=== PATIENT | male | born 1970 | race Caucasian/White ===

== ENCOUNTER 2019-10-21 09:51 | Observation (INO) | payer BC ==
[2019-10-21 10:36] LABS: CHLORIDE,CL 105 mEq/L (98-106); SODIUM,NA 141 mEq/L (136-145)
[2019-10-21] MEDS ORDERED: Sodium Chloride 0.9% 1,000 ML IV ONE (10:44)
--- NOTE | 2019-10-21 10:55 | EDM.PDOC ---
ED HPI GENERAL MEDICAL PROBLEM - General Chief Complaint: Abdominal Pain Stated Complaint: BELLY PAIN Time Seen by Provider: 10/21/19 10:06 Source of Information: Reports: Patient History Limitations: Reports: No Limitations - History of Present Illness INITIAL COMMENTS - FREE TEXT/NARRATIVE: This patient is a 49 year old male that presents to the ER. Patient reports that at Tuesday morning at about 3am he started having right sided abdominal pain that woke him from his sleep. Patient reports that the pain comes and goes since then. Patient reports some nausea. He reports that Tuesday his pain was bad that he got diaphoretic with it. The patient reports that he does drink beers daily. He reports having a history of pancreatitis. Onset Date: 10/20/19 Onset Time: 03:00 Location: Reports: Abdomen Severity: Moderate Improves with: Reports: None Worsens with: Reports: None Associated Symptoms: Reports: Diaphoresis, Nausea/Vomiting. Denies: Confusion, Chest Pain, Cough, cough w sputum, Fever/Chills, Headaches, Loss of Appetite, Malaise, Rash, Seizure, Shortness of Breath, Syncope, Weakness Abdomen Pain Score (Numeric/FACES): 3 - Related Data Allergies Allergy/AdvReac Type Severity Reaction Status Date / Time No Known Allergies Allergy Verified 10/21/19 10:06 Home Meds: Home Meds . [Unable to Verify Home Med List] 10/21/19 [History] Past Medical History Cardiovascular History: Reports: Hypertension Social & Family History - Tobacco Use Smoking Status *Q: Current Every Day Smoker Years of Tobacco use: 15 Packs/Tins Daily: 1 - Recreational Drug Use Recreational Drug Use: No ED ROS GENERAL - Review of Systems Review Of Systems: See Below Constitutional: Reports: Diaphoresis HEENT: Reports: No Symptoms Respiratory: Reports: No Symptoms Cardiovascular: Reports: No Symptoms Endocrine: Reports: No Symptoms GI/Abdominal: Reports: Abdominal Pain, Nausea. Denies: Vomiting : Reports: No Symptoms Musculoskeletal: Reports: No Symptoms Skin: Reports: No Symptoms Neurological: Reports: No Symptoms Psychiatric: Reports: No Symptoms Hematologic/Lymphatic: Reports: No Symptoms Immunologic: Reports: No Symptoms ED EXAM, GI/ABD - Physical Exam Exam: See Below Exam Limited By: No Limitations General Appearance: Alert, WD/WN, No Apparent Distress Eyes: Bilateral: Normal Appearance Ears: Normal External Exam, Normal Canal, Hearing Grossly Normal, Normal TMs Throat/Mouth: Normal Inspection, Normal Lips, Normal Teeth, Normal Gums, Normal Oropharynx, Normal Voice, No Airway Compromise Head: Atraumatic, Normocephalic Neck: Normal Inspection, Supple, Non-Tender, Full Range of Motion Respiratory/Chest: No Respiratory Distress, Rhonchi (mildly throughout) Cardiovascular: Normal Peripheral Pulses, Regular Rate, Rhythm, No Edema, No Gallop, No JVD, No Murmur, No Rub GI/Abdominal Exam: Normal Bowel Sounds, Soft, No Organomegaly, No Distention, No Abnormal Bruit, No Mass, Pelvis Stable, Tender (RLQ, RUQ) Back Exam: Normal Inspection, Full Range of Motion. No: CVA Tenderness (L), CVA Tenderness (R) Extremities: Normal Inspection, Normal Range of Motion, Non-Tender, No Pedal Edema, Normal Capillary Refill Neurological: Alert, Oriented Psychiatric: Normal Affect, Normal Mood Skin Exam: Warm, Dry, Intact, Normal Color, No Rash Lymphatic: No Adenopathy Course - Vital Signs Last Recorded V/S: Last Vital Signs Temp 98.7 F 10/21/19 10:02 Pulse 88 10/21/19 10:02 Resp 20 10/21/19 10:02 BP 160/98 H 10/21/19 10:02 Pulse Ox 100 10/21/19 10:02 - Orders/Labs/Meds Orders: Active Orders 24 hr Category Date Time Status Abdomen Pelvis wo Cont [CT] Stat Exams 10/21/19 10:43 Taken Labs: Laboratory Tests 10/21/19 10/21/19 10/21/19 Range/Units 10:12 10:12 10:12 WBC 9.2 (5.0-10.0) 10^3/uL RBC 4.47 L (4.50-6.00) 10^6/uL Hgb 13.9 L (14.0-18.0) g/dL Hct 41.2 (40.0-54.0) % MCV 92.2 (82.0-94.0) fL MCH 31.1 (27.0-32.0) pg MCHC 33.7 (33.0-38.0) g/dL RDW Coeff of Edilia 13.0 (11.0-15.0) % Plt Count 200 (150-400) 10^3/uL Neut % (Auto) 70.0 (35-85) % Lymph % (Auto) 21.6 (10-55) % [place] % (Auto) 6.8 (0-16) % Eos % (Auto) 1.4 (0-5) % Baso % (Auto) 0.2 (0-3) % Neut # (Auto) 6.46 (1.80-7.00) 10^3/uL Lymph # (Auto) 2.00 (1.00-4.80) 10^3/uL [place] # (Auto) 0.63 (0.00-0.80) 10^3/uL Eos # (Auto) 0.13 (0.00-0.45) 10^3/uL Baso # (Auto) 0.02 10^3/uL Sodium 141 (136-145) mEq/L Potassium 3.5 D (3.5-5.0) mEq/L Chloride 105 (98-106) mEq/L Carbon Dioxide 22 (21-32) mmol/L BUN 49 H D (7-18) mg/dL Creatinine 3.2 H* D (0.7-1.3) mg/dL Est Cr Clr Drug Dosing 23.65 mL/min Estimated GFR (MDRD) 21 L (>=60) mL/min Glucose 133 H D (75-99) mg/dL Calcium 8.2 L (8.4-10.1) mg/dL Total Bilirubin 0.6 (0.0-1.0) mg/dL AST 9 L (15-37) U/L ALT 3 L (12-78) U/L Alkaline Phosphatase 65 (46-116) U/L Lactate Dehydrogenase 150 (100-190) U/L Creatine Kinase 53 (35-232) U/L Troponin I < 0.017 (0.00-0.06) ng/mL Total Protein 6.3 L (6.4-8.2) g/dL Albumin 2.8 L (3.4-5.0) g/dL Amylase 1171 H (25-115) U/L Lipase 3164 H (73-393) U/L Urine Color Yellow (YELLOW) Urine Appearance Clear (CLEAR) Urine pH 5.5 (4.5-8.0) Ur Specific [place] 1.025 H (1.003-1.020) Urine Protein 100 H (NEGATIVE) mg/dL Urine Glucose (UA) Negative (NEGATIVE) mg/dL Urine Ketones Negative (NEGATIVE) mg/dL Urine Occult Blood Small H (NEGATIVE) Urine Nitrite Negative (NEGATIVE) Urine Bilirubin Negative (NEGATIVE) Urine Urobilinogen 0.2 (0.2-1.0) EU/dL Ur Leukocyte Esterase Negative (NEGATIVE) Urine RBC Not seen (0-5) /HPF Urine WBC 0-5 (0-5) /HPF Ur Renal Epithelial Cell Few H (NOT SEEN) /HPF Granular Casts (Auto) Few (NOT SEEN) /LPF Meds: Medications Discontinued Medications Generic Name Dose Route Start Last Admin Trade Name Freq PRN Reason Stop Dose Admin Sodium Chloride 1,000 mls @ 1,000 mls/hr 10/21/19 10:44 10/21/19 10:48 Normal Saline IV 10/21/19 11:43 1,000 mls/hr .BOLUS ONE Administration - Radiology Interpretation Free Text/Narrative:: Abd Pelvis: Kidneys cysts consistent with polycystic autosomal kideny disease. Inflammatory changes pancreas consistent with pancreatitis. CT Results Date: 10/21/19 CT Results Time: 11:20 - Re-Assessments/Exams Free Text/Narrative Re-Assessment/Exam: 10/21/19 11:46 Patient vital signs are stable. Patient does not appear in distress. Will admit here in [place]. Spoke to patient about his condition. He reports his father had it. He will need a consult followup with renal. 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, autosomal recessive Pancreatitis, alcoholic, acute Qualifiers: Acute pancreatitis complication: no infection or necrosis Qualified Code(s): K85.20 - Alcohol induced acute pancreatitis without necrosis or infection - Discharge Information *PRESCRIPTION DRUG MONITORING PROGRAM REVIEWED*: Not Applicable *COPY OF PRESCRIPTION DRUG MONITORING REPORT IN PATIENT [place]: Not Applicable Forms: ED Department Discharge Sepsis Event Note (ED) - Evaluation Sepsis Screening Result: No Definite Risk - Focused Exam Vital Signs: Vital Signs Temp Pulse Resp BP Pulse Ox 10/21/19 10:02 98.7 F 88 20 160/98 H 100 - My Orders Last 24 Hours: My Active Orders 10/21/19 10:43 Abdomen Pelvis wo Cont [CT] Stat - Assessment/Plan Last 24 Hours: My Active Orders 10/21/19 10:43 Abdomen Pelvis wo Cont [CT] Stat Plan: PLEASE SEE RN NOTE FOR PFSH
[2019-10-21] MEDS ORDERED: LORazepam 2 MG/ML Syringe IVPUSH PRN (13:16)
[2019-10-21] MEDS ORDERED: Ondansetron 4 MG/2 ML SDV IV PRN (13:16)
[2019-10-21] MEDS ORDERED: Morphine 2 MG/ML SYRINGE IVPUSH PRN (13:16)
[2019-10-21] MEDS: chlordiazePOXIDE 10 MG Cap PO SCH ×2 (14:33→19:35)
[2019-10-21] MEDS: Sodium Chloride 0.9% 1,000 ML IV SCH (22:36)
[2019-10-22] MEDS: Sodium Chloride 0.9% 1,000 ML IV SCH ×2 (06:32→14:44)
[2019-10-22] MEDS: chlordiazePOXIDE 10 MG Cap PO SCH ×3 (07:49→19:35)
[2019-10-22] MEDS: METOPROLOL SUCCINATE 50 MG PO SCH (07:50)
[2019-10-22] MEDS: LOSARTAN PO SCH (08:00)
[2019-10-22] MEDS: HCTZ PO SCH (08:00)
--- NOTE | 2019-10-22 09:38 | PCM.PN ---
- General Info Date of Service: 10/22/19 Admission Dx/Problem (Free Text): Pancreatitis Functional Status: Reports: Pain Controlled, Tolerating Diet, Ambulating - Review of Systems General: Denies: Fever, Weakness, Fatigue HEENT: Reports: No Symptoms Pulmonary: Denies: Shortness of Breath, Cough Cardiovascular: Denies: Chest Pain, Edema, Lightheadedness Gastrointestinal: Denies: Abdominal Pain, Nausea, Vomiting Genitourinary: Reports: No Symptoms Musculoskeletal: Denies: Back Pain Skin: Reports: No Symptoms Neurological: Reports: No Symptoms - Patient Data Vitals - Most Recent: Last Vital Signs Temp 96.9 F 10/22/19 07:41 Pulse 66 10/22/19 07:41 Resp 18 10/22/19 07:41 BP 159/97 H 10/22/19 07:41 Pulse Ox 97 10/22/19 07:41 Weight - Most Recent: 135 lb I&O - Last 24 Hours: Intake & Output 10/21/19 10/22/19 10/22/19 22:59 06:59 14:59 Intake Total 1100 2392 Output Total 500 1000 Balance 600 1392 Lab Results Last 24 Hours: Laboratory Results - last 24 hr 10/21/19 10/21/19 10/21/19 Range/Units 10:12 10:12 10:12 WBC 9.2 (5.0-10.0) 10^3/uL RBC 4.47 L (4.50-6.00) 10^6/uL Hgb 13.9 L (14.0-18.0) g/dL Hct 41.2 (40.0-54.0) % MCV 92.2 (82.0-94.0) fL MCH 31.1 (27.0-32.0) pg MCHC 33.7 (33.0-38.0) g/dL RDW Coeff of Edilia 13.0 (11.0-15.0) % Plt Count 200 (150-400) 10^3/uL Neut % (Auto) 70.0 (35-85) % Lymph % (Auto) 21.6 (10-55) % [place] % (Auto) 6.8 (0-16) % Eos % (Auto) 1.4 (0-5) % Baso % (Auto) 0.2 (0-3) % Neut # (Auto) 6.46 (1.80-7.00) 10^3/uL Lymph # (Auto) 2.00 (1.00-4.80) 10^3/uL [place] # (Auto) 0.63 (0.00-0.80) 10^3/uL Eos # (Auto) 0.13 (0.00-0.45) 10^3/uL Baso # (Auto) 0.02 10^3/uL Sodium 141 (136-145) mEq/L Potassium 3.5 D (3.5-5.0) mEq/L Chloride 105 (98-106) mEq/L Carbon Dioxide 22 (21-32) mmol/L BUN 49 H D (7-18) mg/dL Creatinine 3.2 H* D (0.7-1.3) mg/dL Est Cr Clr Drug Dosing 23.65 mL/min Estimated GFR (MDRD) 21 L (>=60) mL/min Glucose 133 H D (75-99) mg/dL Calcium 8.2 L (8.4-10.1) mg/dL Total Bilirubin 0.6 (0.0-1.0) mg/dL AST 9 L (15-37) U/L ALT 3 L (12-78) U/L Alkaline Phosphatase 65 (46-116) U/L Lactate Dehydrogenase 150 (100-190) U/L Creatine Kinase 53 (35-232) U/L Troponin I < 0.017 (0.00-0.06) ng/mL Total Protein 6.3 L (6.4-8.2) g/dL Albumin 2.8 L (3.4-5.0) g/dL Amylase 1171 H (25-115) U/L Lipase 3164 H (73-393) U/L Urine Color Yellow (YELLOW) Urine Appearance Clear (CLEAR) Urine pH 5.5 (4.5-8.0) Ur Specific [place] 1.025 H (1.003-1.020) Urine Protein 100 H (NEGATIVE) mg/dL Urine Glucose (UA) Negative (NEGATIVE) mg/dL Urine Ketones Negative (NEGATIVE) mg/dL Urine Occult Blood Small H (NEGATIVE) Urine Nitrite Negative (NEGATIVE) Urine Bilirubin Negative (NEGATIVE) Urine Urobilinogen 0.2 (0.2-1.0) EU/dL Ur Leukocyte Esterase Negative (NEGATIVE) Urine RBC Not seen (0-5) /HPF Urine WBC 0-5 (0-5) /HPF Ur Renal Epithelial Cell Few H (NOT SEEN) /HPF Granular Casts (Auto) Few (NOT SEEN) /LPF COVID-19 (LISANDRO) (NEGATIVE) 10/21/19 10/22/19 10/22/19 Range/Units 12:36 05:00 07:00 WBC 8.8 (5.0-10.0) 10^3/uL RBC 4.42 L (4.50-6.00) 10^6/uL Hgb 13.6 L (14.0-18.0) g/dL Hct 41.3 (40.0-54.0) % MCV 93.4 (82.0-94.0) fL MCH 30.8 (27.0-32.0) pg MCHC 32.9 L (33.0-38.0) g/dL RDW Coeff of Edilia 13.2 (11.0-15.0) % Plt Count 209 (150-400) 10^3/uL Neut % (Auto) 64.0 (35-85) % Lymph % (Auto) 26.5 (10-55) % [place] % (Auto) 7.0 (0-16) % Eos % (Auto) 2.4 (0-5) % Baso % (Auto) 0.1 (0-3) % Neut # (Auto) 5.61 (1.80-7.00) 10^3/uL Lymph # (Auto) 2.32 (1.00-4.80) 10^3/uL [place] # (Auto) 0.61 (0.00-0.80) 10^3/uL Eos # (Auto) 0.21 (0.00-0.45) 10^3/uL Baso # (Auto) 0.01 10^3/uL Sodium 141 (136-145) mEq/L Potassium 3.6 (3.5-5.0) mEq/L Chloride 110 H (98-106) mEq/L Carbon Dioxide 20 L (21-32) mmol/L BUN 37 H (7-18) mg/dL Creatinine 2.0 H (0.7-1.3) mg/dL Est Cr Clr Drug Dosing 37.85 mL/min Estimated GFR (MDRD) 35 L (>=60) mL/min Glucose 79 D (75-99) mg/dL Calcium 7.8 L (8.4-10.1) mg/dL Total Bilirubin 0.5 (0.0-1.0) mg/dL AST 10 L (15-37) U/L ALT 8 L (12-78) U/L Alkaline Phosphatase 56 (46-116) U/L Lactate Dehydrogenase (100-190) U/L Creatine Kinase (35-232) U/L Troponin I (0.00-0.06) ng/mL Total Protein 5.6 L (6.4-8.2) g/dL Albumin 2.3 L (3.4-5.0) g/dL Amylase (25-115) U/L Lipase (73-393) U/L Urine Color (YELLOW) Urine Appearance (CLEAR) Urine pH (4.5-8.0) Ur Specific [place] (1.003-1.020) Urine Protein (NEGATIVE) mg/dL Urine Glucose (UA) (NEGATIVE) mg/dL Urine Ketones (NEGATIVE) mg/dL Urine Occult Blood (NEGATIVE) Urine Nitrite (NEGATIVE) Urine Bilirubin (NEGATIVE) Urine Urobilinogen (0.2-1.0) EU/dL Ur Leukocyte Esterase (NEGATIVE) Urine RBC (0-5) /HPF Urine WBC (0-5) /HPF Ur Renal Epithelial Cell (NOT SEEN) /HPF Granular Casts (Auto) (NOT SEEN) /LPF COVID-19 (LISANDRO) Negative (NEGATIVE) 10/22/19 Range/Units 08:47 WBC (5.0-10.0) 10^3/uL RBC (4.50-6.00) 10^6/uL Hgb (14.0-18.0) g/dL Hct (40.0-54.0) % MCV (82.0-94.0) fL MCH (27.0-32.0) pg MCHC (33.0-38.0) g/dL RDW Coeff of Edilia (11.0-15.0) % Plt Count (150-400) 10^3/uL Neut % (Auto) (35-85) % Lymph % (Auto) (10-55) % [place] % (Auto) (0-16) % Eos % (Auto) (0-5) % Baso % (Auto) (0-3) % Neut # (Auto) (1.80-7.00) 10^3/uL Lymph # (Auto) (1.00-4.80) 10^3/uL [place] # (Auto) (0.00-0.80) 10^3/uL Eos # (Auto) (0.00-0.45) 10^3/uL Baso # (Auto) 10^3/uL Sodium (136-145) mEq/L Potassium (3.5-5.0) mEq/L Chloride (98-106) mEq/L Carbon Dioxide (21-32) mmol/L BUN (7-18) mg/dL Creatinine (0.7-1.3) mg/dL Est Cr Clr Drug Dosing mL/min Estimated GFR (MDRD) (>=60) mL/min Glucose (75-99) mg/dL Calcium (8.4-10.1) mg/dL Total Bilirubin (0.0-1.0) mg/dL AST (15-37) U/L ALT (12-78) U/L Alkaline Phosphatase (46-116) U/L Lactate Dehydrogenase (100-190) U/L Creatine Kinase (35-232) U/L Troponin I (0.00-0.06) ng/mL Total Protein (6.4-8.2) g/dL Albumin (3.4-5.0) g/dL Amylase 317 H (25-115) U/L Lipase (73-393) U/L Urine Color (YELLOW) Urine Appearance (CLEAR) Urine pH (4.5-8.0) Ur Specific [place] (1.003-1.020) Urine Protein (NEGATIVE) mg/dL Urine Glucose (UA) (NEGATIVE) mg/dL Urine Ketones (NEGATIVE) mg/dL Urine Occult Blood (NEGATIVE) Urine Nitrite (NEGATIVE) Urine Bilirubin (NEGATIVE) Urine Urobilinogen (0.2-1.0) EU/dL Ur Leukocyte Esterase (NEGATIVE) Urine RBC (0-5) /HPF Urine WBC (0-5) /HPF Ur Renal Epithelial Cell (NOT SEEN) /HPF Granular Casts (Auto) (NOT SEEN) /LPF COVID-19 (LISANDRO) (NEGATIVE) Med Orders - Current: Current Medications Amlodipine Besylate (Norvasc) 5 mg PO BEDTIME [facility] Chlordiazepoxide HCl (Librium) 10 mg PO TID [facility] Last Admin: 10/22/19 07:49 Dose: 10 mg Documented by: Sodium Chloride (Normal Saline) 1,000 mls @ 125 mls/hr IV ASDIRECTED [facility] Last Admin: 10/22/19 06:32 Dose: 125 mls/hr Documented by: Lorazepam (Ativan) 1 mg IVPUSH Q6H PRN PRN Reason: Withdrawal Symptoms Morphine Sulfate (Morphine) 2 mg IVPUSH Q2H PRN PRN Reason: Pain (severe 7-10) Nf Metoprolol Succinate 50mg *Pt Own Med 1 each PO DAILY [facility] Last Admin: 10/22/19 07:50 Dose: 1 each Documented by: Nf Losartan/Hctz 100 (-25mg * Pt Own Med) 1 each PO DAILY [facility] Ondansetron HCl (Zofran) 4 mg IV Q6H PRN PRN Reason: Nausea/Vomiting Discontinued Medications Sodium Chloride (Normal Saline) 1,000 mls @ 1,000 mls/hr IV .BOLUS ONE Stop: 10/21/19 11:43 Last Admin: 10/21/19 10:48 Dose: 1,000 mls/hr Documented by: - Exam General: Alert, Oriented HEENT: Mucous Membr. Moist/[place] Neck: Supple Lungs: Clear to Auscultation, Normal Respiratory Effort Cardiovascular: Regular Rate, Regular Rhythm GI/Abdominal Exam: Normal Bowel Sounds, Soft, Non-Tender Extremities: Normal Inspection, No Pedal Edema Skin: Warm, Dry Neurological: No New Focal Deficit Sepsis Event Note - Evaluation Sepsis Screening Result: No Definite Risk - Focused Exam Vital Signs: Vital Signs Temp Pulse Resp BP Pulse Ox 10/22/19 07:41 96.9 F 66 18 159/97 H 97 10/22/19 04:00 98.9 F 61 16 155/93 H 95 10/22/19 00:00 97.9 F 72 16 133/83 95 - Problem List & Annotations (1) Pancreatitis, alcoholic, acute SNOMED Code(s): 152211952 Code(s): K85.20 - ALCOHOL INDUCED ACUTE PANCREATITIS WITHOUT NECROSIS OR INF CT Status: Acute Priority: High Current Visit: Yes Qualifiers: Acute pancreatitis complication: no infection or necrosis Qualified Code(s): K85.20 - Alcohol induced acute pancreatitis without necrosis or infection (2) 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 Denies any abdominal pain. He is eating this am, no nausea or increase in pain. Relates did eat both dinner and supper yesterday and tolerated well. Labs have improved today. Creatinine down to 2.0 from 3.2. CBC stable. Amylase has improved to 317. Blood pressure continues to run high, not currently on any medications for this. CT scan did show pancreatitis, polycystic kidneys. Will need referral to nephrology. Will continue IV fluids. Repeat labs in am. Possible discharge home tomorrow.
[2019-10-22] MEDS ORDERED: amLODIPine 2.5 MG Tab PO SCH (20:00)
[2019-10-23] MEDS: METOPROLOL SUCCINATE 50 MG PO SCH (07:23)
[2019-10-23] MEDS: LOSARTAN PO SCH (07:23)
[2019-10-23] MEDS: HCTZ PO SCH (07:23)
[2019-10-23] MEDS: chlordiazePOXIDE 10 MG Cap PO SCH (07:24)
--- NOTE | 2019-10-23 09:11 | PCM.DCSUM1 ---
Discharge Summary - Hospital Course Free Text/Narrative:: Patient presented to ER with complaints of right sided abdominal pain. Patient reports that had 2 episodes of pain over the prior 24 hours that come and go, have awoke him from sleep. Did have mild nausea but no vomiting. Reports that the pain was so intense he did get diaphoretic. Does drink alcohol daily. Has history of pancreatitis. Abdominal CT was done that did show inflammatory changes consistent with pancreatitis. Also incidentally showed kidney cysts consistent with polycystic autosomal kidney disease. Amylase 1171, Lipase 3164. Admitted for IV fluids, pain control. Diagnosis: Stroke: No Modified Chelan Scale: No Symptoms at All Modified Chelan Scale Score: 0 - Discharge Data Discharge Date: 10/23/19 Discharge Disposition: Home, Self-Care 01 Condition: Fair - Referral to Home Health Primary Care Physician: PCP None - Discharge Diagnosis/Problem(s) (1) Pancreatitis, alcoholic, acute SNOMED Code(s): 762990549 ICD Code: K85.20 - ALCOHOL INDUCED ACUTE PANCREATITIS WITHOUT NECROSIS OR INFCT Status: Acute Priority: High Qualifiers: Acute pancreatitis complication: no infection or necrosis Qualified Code(s): K85.20 - Alcohol induced acute pancreatitis without necrosis or infection (2) 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 Has not had any further pain since he was admitted. Has been eating well. No further nausea or vomiting. Is ambulating well. Amylase on admit was high, dropped yesterday to 360 but is back up today. Has not had a change in pain with this. Creatinine was 3.2 on admit, is now improved to 1.9. Taking fluids well. Will discharge home. Encourage alcohol cessation. Will arrange for nephrology consult in regards to polycystic kidney disease as outpatient. Follow up with Dr. Sheth for recheck in 2 weeks. - Patient Instructions Diet: Usual Diet as Tolerated Activity: As Tolerated - Discharge Plan *PRESCRIPTION DRUG MONITORING PROGRAM REVIEWED*: Not Applicable *COPY OF PRESCRIPTION DRUG MONITORING REPORT IN PATIENT [place]: Not Applicable Prescriptions/Med Rec: amLODIPine [Norvasc] 5 mg PO BEDTIME #30 tablet Home Medications: Home Meds Losartan/Hydrochlorothiazide [Losartan-HCTZ 100-25 MG] 1 tab PO DAILY 10/21/19 [History] Metoprolol Succinate [Toprol XL 50mg] 50 mg PO DAILY 10/21/19 [History] amLODIPine [Norvasc] 5 mg PO BEDTIME #30 tablet 10/23/19 [Rx] Forms: ED Department Discharge Referrals: Ezekiel Sheth MD [ED Physician] - (Follow up with Dr. Sheth in 2 weeks for recheck) - Discharge Summary/Plan Comment DC Time >30 min.: No - General Info Date of Service: 10/23/19 Admission Dx/Problem (Free Text: Pancreatitis Functional Status: Reports: Pain Controlled, Tolerating Diet, Ambulating - Review of Systems General: Denies: Fever, Weakness, Fatigue, Malaise HEENT: Reports: No Symptoms Pulmonary: Denies: Shortness of Breath, Cough Cardiovascular: Denies: Chest Pain, Edema, Lightheadedness Gastrointestinal: Denies: Abdominal Pain, Nausea, Vomiting Genitourinary: Reports: No Symptoms Musculoskeletal: Reports: No Symptoms Skin: Reports: No Symptoms Neurological: Reports: No Symptoms Psychiatric: Reports: No Symptoms - Patient Data Vitals - Most Recent: Last Vital Signs Temp 97.6 F 10/23/19 07:24 Pulse 95 10/23/19 07:24 Resp 18 10/23/19 07:24 BP 160/107 H 10/23/19 07:24 Pulse Ox 97 10/23/19 07:24 Weight - Most Recent: 135 lb Lab Results - Last 24 hrs: Laboratory Results - last 24 hr 10/23/19 10/23/19 10/23/19 Range/Units 07:00 07:00 07:00 WBC 7.5 (5.0-10.0) 10^3/uL RBC 4.47 L (4.50-6.00) 10^6/uL Hgb 14.0 (14.0-18.0) g/dL Hct 41.6 (40.0-54.0) % MCV 93.1 (82.0-94.0) fL MCH 31.3 (27.0-32.0) pg MCHC 33.7 (33.0-38.0) g/dL RDW Coeff of Edilia 13.1 (11.0-15.0) % Plt Count 209 (150-400) 10^3/uL Neut % (Auto) 63.7 (35-85) % Lymph % (Auto) 25.8 (10-55) % [place] % (Auto) 8.1 (0-16) % Eos % (Auto) 2.1 (0-5) % Baso % (Auto) 0.3 (0-3) % Neut # (Auto) 4.75 (1.80-7.00) 10^3/uL Lymph # (Auto) 1.92 (1.00-4.80) 10^3/uL [place] # (Auto) 0.60 (0.00-0.80) 10^3/uL Eos # (Auto) 0.16 (0.00-0.45) 10^3/uL Baso # (Auto) 0.02 10^3/uL Sodium 142 (136-145) mEq/L Potassium 3.4 L (3.5-5.0) mEq/L Chloride 110 H (98-106) mEq/L Carbon Dioxide 21 (21-32) mmol/L BUN 32 H (7-18) mg/dL Creatinine 1.9 H (0.7-1.3) mg/dL Est Cr Clr Drug Dosing 39.84 mL/min Estimated GFR (MDRD) 38 L (>=60) mL/min Glucose 89 (75-99) mg/dL Calcium 8.0 L (8.4-10.1) mg/dL Total Bilirubin 0.5 (0.0-1.0) mg/dL AST 9 L (15-37) U/L ALT 8 L (12-78) U/L Alkaline Phosphatase 57 (46-116) U/L C-Reactive Protein 3.1 H (0.2-0.8) mg/dL Total Protein 5.4 L (6.4-8.2) g/dL Albumin 2.4 L (3.4-5.0) g/dL Amylase 1361 H (25-115) U/L Med Orders - Current: Current Medications Amlodipine Besylate (Norvasc) 5 mg PO BEDTIME [facility] Last Admin: 10/22/19 19:36 Dose: 5 mg Documented by: Chlordiazepoxide HCl (Librium) 10 mg PO TID [facility] Last Admin: 10/23/19 07:24 Dose: 10 mg Documented by: Sodium Chloride (Normal Saline) 1,000 mls @ 50 mls/hr IV ASDIRECTED [facility] Last Infusion: 10/22/19 14:44 Dose: 50 mls/hr Documented by: Lorazepam (Ativan) 1 mg IVPUSH Q6H PRN PRN Reason: Withdrawal Symptoms Morphine Sulfate (Morphine) 2 mg IVPUSH Q2H PRN PRN Reason: Pain (severe 7-10) Nf Metoprolol Succinate 50mg *Pt Own Med 1 each PO DAILY [facility] Last Admin: 10/23/19 07:23 Dose: 1 each Documented by: Nf Losartan/Hctz 100 (-25mg * Pt Own Med) 1 each PO DAILY [facility] Last Admin: 10/23/19 07:23 Dose: 1 each Documented by: Ondansetron HCl (Zofran) 4 mg IV Q6H PRN PRN Reason: Nausea/Vomiting Discontinued Medications Sodium Chloride (Normal Saline) 1,000 mls @ 1,000 mls/hr IV .BOLUS ONE Stop: 10/21/19 11:43 Last Admin: 10/21/19 10:48 Dose: 1,000 mls/hr Documented by: - Exam General: Reports: Alert, Oriented HEENT: Reports: Mucous Membr. Moist/[place] Neck: Reports: Supple Lungs: Reports: Clear to Auscultation, Normal Respiratory Effort Cardiovascular: Reports: Regular Rate, Regular Rhythm GI/Abdominal Exam: Normal Bowel Sounds, Soft, Non-Tender Extremities: Normal Inspection, No Pedal Edema Skin: Reports: Warm, Dry Neurological: Reports: No New Focal Deficit
== END 2019-10-23 10:35 | disposition home or self-care (01) ==
LOC: CC.ED 09:51 → CC.MS 11:47 → UNDOADMOB 12:15 → CC.ED 12:15
PROVIDERS: ADMIT Nurse Practitioner; ATTEND Family Medicine
DX: K85.20 Alcohol induced acute pancreatitis without necrosis or infection (principal); F10.10 Alcohol abuse, uncomplicated; Q61.19 Other polycystic kidney, infantile type; Q44.7 Other congenital malformations of liver; F17.210 Nicotine dependence, cigarettes, uncomplicated; I10 Essential (primary) hypertension; Z79.899 Other long term (current) drug therapy; Z20.828 Contact with and (suspected) exposure to other viral communicable diseases
CPT/HCPCS: 36415; 74176; 80053; 81001; 82150; 82550; 83615; 83690; 84484; 85025; 86140; 96360; 96361; 99285-25; A9270-GY; G0378; J7030; U0002

== ENCOUNTER 2020-03-26 13:52 | Observation (INO) | payer BC ==
--- NOTE | 2020-03-26 15:08 | EDM.PDOC ---
ED HPI GENERAL MEDICAL PROBLEM - General Chief Complaint: Abdominal Pain Stated Complaint: ABD PAIN Time Seen by Provider: 03/26/20 14:25 Source of Information: Reports: Patient History Limitations: Reports: No Limitations - History of Present Illness INITIAL COMMENTS - FREE TEXT/NARRATIVE: States that he has been having upper abdominal pain on and off since September. He had been in to see Dr. Sheth at that time and had similar type of pain and was also diagnosed with pancreatitis and his kidney functions were up. He states that he was supposed to have an US of gallbladder but never did it because pain improved and would come back on and off but not as severe. Didn't feel like he had time to do it so cancelled test. He denies drinking on regular basis stating that the last alcohol he drank was about 2 weeks ago and it was [address] Sheth had informed him that it was most likely from a bad gallbladder and stones. He states that he ate a gas station burger yesterday before his pain started. He did vomit last evening. Pain is in the Upper quadrants bilaterally and then will radiate to one area in the right lower quadrant. Onset: Gradual Duration: Getting Worse Location: Reports: Abdomen Right Lower Abdomen Pain Score (Numeric/FACES): 9 - Related Data Allergies Allergy/AdvReac Type Severity Reaction Status Date / Time No Known Allergies Allergy Verified 03/26/20 14:25 Home Meds: Home Meds Losartan/Hydrochlorothiazide [Losartan-HCTZ 100-25 MG] 1 tab PO DAILY 10/21/19 [History] Metoprolol Succinate [Toprol XL 50mg] 50 mg PO DAILY 10/21/19 [History] amLODIPine [Norvasc] 5 mg PO BEDTIME #30 tablet 10/23/19 [Rx] Past Medical History Cardiovascular History: Reports: Hypertension Gastrointestinal History: Reports: Pancreatitis Genitourinary History: Reports: Chronic Renal Insuffiency Social & Family History - Family History Cardiac: Reports: Hypertension : Reports: Cystic Kidney Disease - Tobacco Use Tobacco Use Status *Q: Current Every Day Tobacco User Years of Tobacco use: 30 Packs/Tins Daily: 1 - Caffeine Use Caffeine Use: Reports: None - Recreational Drug Use Recreational Drug Use: No ED ROS GENERAL - Review of Systems Review Of Systems: See Below Constitutional: Denies: Fever, Chills HEENT: Reports: No Symptoms Respiratory: Reports: No Symptoms Cardiovascular: Reports: No Symptoms GI/Abdominal: Reports: Abdominal Pain, Diarrhea, Nausea, Vomiting : Reports: No Symptoms Musculoskeletal: Reports: No Symptoms Skin: Reports: No Symptoms Neurological: Reports: No Symptoms Psychiatric: Reports: No Symptoms ED EXAM, GI/ABD - Physical Exam Exam: See Below Exam Limited By: No Limitations General Appearance: Alert, WD/WN, Moderate Distress Eyes: Bilateral: Normal Appearance Ears: Normal External Exam, Normal Canal Throat/Mouth: Normal Inspection, Normal Oropharynx, No Airway Compromise Head: Atraumatic, Normocephalic Neck: Normal Inspection, Supple, Non-Tender Respiratory/Chest: No Respiratory Distress, Lungs Clear, Chest Non-Tender Cardiovascular: Regular Rate, Rhythm, No Edema GI/Abdominal Exam: Normal Bowel Sounds, Soft, Tender (tender to the upper quadrants bilaterally. Has tenderness to the right lower quadrant with palpation. No rebounding noted. ) Extremities: Normal Inspection, No Pedal Edema, Normal Capillary Refill Neurological: Alert, Oriented Skin Exam: Warm, Dry, Intact Course - Vital Signs Last Recorded V/S: Last Vital Signs Temp 98.2 F 03/26/20 14:01 Pulse 105 H 03/26/20 14:01 Resp 16 03/26/20 14:01 BP 139/94 H 03/26/20 14:19 Pulse Ox 98 03/26/20 14:01 - Orders/Labs/Meds Orders: Medication Orders Amlodipine Besylate (Norvasc) 5 mg PO BEDTIME [facility] Ceftriaxone Sodium (Rocephin) 1 gm IVPUSH Q24H [facility] Enoxaparin Sodium (Lovenox) 30 mg SUBCUT Q24H [facility] Lactated Ringer's (Ringers, Lactated) 1,000 mls @ 150 mls/hr IV ASDIRECTED [facility] Morphine Sulfate (Morphine) 2 mg IVPUSH Q2H PRN PRN Reason: Abdominal Pain Nicotine (Habitrol) 14 mg TRDERM DAILY [facility] Losartan/Hydrochlorothiazide [Losartan-Hctz 100- 25 Mg] Ptom 0 tab PO DAILY [facility] Metoprolol Succinate [Toprol Xl 50mg] 50 Mg Ptom 0 mg PO DAILY [facility] Ondansetron HCl (Zofran Odt) 4 mg PO Q4H PRN PRN Reason: nausea, able to take PO Pantoprazole Sodium (Protonix Iv) 40 mg IVPUSH Q12H [facility] Labs: Laboratory Tests 03/26/20 03/26/20 03/26/20 Range/Units 14:11 14:15 14:15 WBC 11.8 H (5.0-10.0) 10^3/uL RBC 4.70 (4.50-6.00) 10^6/uL Hgb 14.4 (14.0-18.0) g/dL Hct 43.5 (40.0-54.0) % MCV 92.6 (82.0-94.0) fL MCH 30.6 (27.0-32.0) pg MCHC 33.1 (33.0-38.0) g/dL RDW Coeff of Edilia 13.2 (11.0-15.0) % Plt Count 268 (150-400) 10^3/uL Neut % (Auto) 79.5 (35-85) % Lymph % (Auto) 14.9 (10-55) % [place] % (Auto) 4.9 (0-16) % Eos % (Auto) 0.5 (0-5) % Baso % (Auto) 0.2 (0-3) % Neut # (Auto) 9.39 H (1.80-7.00) 10^3/uL Lymph # (Auto) 1.76 (1.00-4.80) 10^3/uL [place] # (Auto) 0.58 (0.00-0.80) 10^3/uL Eos # (Auto) 0.06 (0.00-0.45) 10^3/uL Baso # (Auto) 0.02 10^3/uL Sodium 139 (136-145) mEq/L Potassium 3.9 (3.5-5.0) mEq/L Chloride 100 (98-106) mEq/L Carbon Dioxide 28 (21-32) mmol/L BUN 45 H (7-18) mg/dL Creatinine 2.7 H* (0.7-1.3) mg/dL Est Cr Clr Drug Dosing 27.72 mL/min Estimated GFR (MDRD) 25 L (>=60) mL/min Glucose 142 H D (75-99) mg/dL Calcium 9.0 (8.4-10.1) mg/dL Total Bilirubin 0.6 (0.0-1.0) mg/dL AST 15 (15-37) U/L ALT 12 (12-78) U/L Alkaline Phosphatase 76 (46-116) U/L Total Protein 7.2 (6.4-8.2) g/dL Albumin 3.5 (3.4-5.0) g/dL Amylase 1162 H (25-115) U/L Lipase 4065 H (73-393) U/L Urine Color Yellow (YELLOW) Urine Appearance Clear (CLEAR) Urine pH 6.0 (4.5-8.0) Ur Specific [place] 1.025 H (1.003-1.020) Urine Protein 30 H (NEGATIVE) mg/dL Urine Glucose (UA) Negative (NEGATIVE) mg/dL Urine Ketones Negative (NEGATIVE) mg/dL Urine Occult Blood Negative (NEGATIVE) Urine Nitrite Negative (NEGATIVE) Urine Bilirubin Negative (NEGATIVE) Urine Urobilinogen 0.2 (0.2-1.0) EU/dL Ur Leukocyte Esterase Negative (NEGATIVE) Urine RBC 0-5 (0-5) /HPF Urine WBC 0-5 (0-5) /HPF Ur Epithelial Cells Few H (NOT SEEN) /HPF Urine Bacteria Occasional H (NOT SEEN) /HPF Urine Mucus Few H (NOT SEEN) /HPF SARS-CoV-2 RNA (LISANDRO) (NEGATIVE) 03/26/20 Range/Units 15:09 WBC (5.0-10.0) 10^3/uL RBC (4.50-6.00) 10^6/uL Hgb (14.0-18.0) g/dL Hct (40.0-54.0) % MCV (82.0-94.0) fL MCH (27.0-32.0) pg MCHC (33.0-38.0) g/dL RDW Coeff of [place]ilia (11.0-15.0) % Plt Count (150-400) 10^3/uL Neut % (Auto) (35-85) % Lymph % (Auto) (10-55) % [place] % (Auto) (0-16) % Eos % (Auto) (0-5) % Baso % (Auto) (0-3) % Neut # (Auto) (1.80-7.00) 10^3/uL Lymph # (Auto) (1.00-4.80) 10^3/uL [place] # (Auto) (0.00-0.80) 10^3/uL Eos # (Auto) (0.00-0.45) 10^3/uL Baso # (Auto) 10^3/uL Sodium (136-145) mEq/L Potassium (3.5-5.0) mEq/L Chloride (98-106) mEq/L Carbon Dioxide (21-32) mmol/L BUN (7-18) mg/dL Creatinine (0.7-1.3) mg/dL Est Cr Clr Drug Dosing mL/min Estimated GFR (MDRD) (>=60) mL/min Glucose (75-99) mg/dL Calcium (8.4-10.1) mg/dL Total Bilirubin (0.0-1.0) mg/dL AST (15-37) U/L ALT (12-78) U/L Alkaline Phosphatase (46-116) U/L Total Protein (6.4-8.2) g/dL Albumin (3.4-5.0) g/dL Amylase (25-115) U/L Lipase (73-393) U/L Urine Color (YELLOW) Urine Appearance (CLEAR) Urine pH (4.5-8.0) Ur Specific [place] (1.003-1.020) Urine Protein (NEGATIVE) mg/dL Urine Glucose (UA) (NEGATIVE) mg/dL Urine Ketones (NEGATIVE) mg/dL Urine Occult Blood (NEGATIVE) Urine Nitrite (NEGATIVE) Urine Bilirubin (NEGATIVE) Urine Urobilinogen (0.2-1.0) EU/dL Ur Leukocyte Esterase (NEGATIVE) Urine RBC (0-5) /HPF Urine WBC (0-5) /HPF Ur Epithelial Cells (NOT SEEN) /HPF Urine Bacteria (NOT SEEN) /HPF Urine Mucus (NOT SEEN) /HPF SARS-CoV-2 RNA (LISANDRO) Negative (NEGATIVE) Meds: Medications Generic Name Dose Route Start Last Admin Trade Name Freq PRN Reason Stop Dose Admin Amlodipine Besylate 5 mg 03/26/20 20:00 Norvasc PO BEDTIME ERICA Ceftriaxone Sodium 1 gm 03/26/20 16:45 Rocephin IVPUSH Q24H ERICA Enoxaparin Sodium 30 mg 03/26/20 20:00 Lovenox SUBCUT Q24H ERICA Lactated Ringer's 1,000 mls @ 150 mls/hr 03/26/20 14:30 Ringers, Lactated IV ASDIRECTED [facility] Morphine Sulfate 2 mg 03/26/20 16:18 Morphine IVPUSH Q2H PRN Abdominal Pain Nicotine 14 mg 03/26/20 17:15 Habitrol TRDERM DAILY [facility] Losartan/ 0 tab 03/27/20 08:00 Hydrochlorothiazide PO [Losartan-Hctz 100- DAILY ERICA 25 Mg] Ptom Metoprolol Succinate 0 mg 03/27/20 08:00 [Toprol Xl 50mg] 50 PO Mg Ptom DAILY [facility] Ondansetron HCl 4 mg 03/26/20 16:11 Zofran Odt PO Q4H PRN nausea, able to take PO Pantoprazole Sodium 40 mg 03/26/20 20:00 Protonix Iv IVPUSH Q12H ERICA Departure - Departure Time of Disposition: 15:45 Disposition: Refer to Observation Condition: Fair Clinical Impression: Pancreatitis Qualifiers: Chronicity: acute Pancreatitis type: unspecified pancreatitis type Acute pancreatitis complication: unspecified Qualified Code(s): K85.90 - Acute pancreatitis without necrosis or infection, unspecified - Discharge Information *PRESCRIPTION DRUG MONITORING PROGRAM REVIEWED*: Not Applicable *COPY OF PRESCRIPTION DRUG MONITORING REPORT IN PATIENT [place]: Not Applicable Sepsis Event Note (ED) - Evaluation Sepsis Screening Result: No Definite Risk - Focused Exam Vital Signs: Vital Signs Temp Pulse Resp BP Pulse Ox 03/26/20 14:19 139/94 H 03/26/20 14:01 98.2 F 105 H 16 140/100 H 98 - Problem List & Annotations (1) Pancreatitis SNOMED Code(s): 45089571 Code(s): K85.90 - ACUTE PANCREATITIS WITHOUT NECROSIS OR INFECTION, UNSP Status: Acute Priority: High Current Visit: No Qualifiers: Chronicity: acute Pancreatitis type: unspecified pancreatitis type Acute pancreatitis complication: unspecified Qualified Code(s): K85.90 - Acute pancreatitis without necrosis or infection, unspecified (2) Renal insufficiency SNOMED Code(s): 503332285, 059157387 Code(s): N28.9 - DISORDER OF KIDNEY AND URETER, UNSPECIFIED Status: Acute Priority: High Current Visit: Yes - Problem List Review Problem List Initiated/Reviewed/Updated: Yes - Assessment/Plan Admission H&P: Please use this note as an admission H&P Plan: Plan is to admit observation RUQ abdominal US in the AM with repeat labs in the AM NPO with IV fluids Nicotine patch do to his smoking history. Pain meds as needed.
[2020-03-26] MEDS ORDERED: Ondansetron 4 MG Tab.DIS PO PRN (16:11)
[2020-03-26] MEDS ORDERED: Morphine 2 MG/ML SYRINGE IVPUSH PRN (16:18)
[2020-03-26] MEDS: Nicotine 14 MG/24 Hr Patch TRDERM SCH (17:29)
[2020-03-26] MEDS: Lactated Ringers 1,000 ML IV SCH (17:29)
[2020-03-26] MEDS: cefTRIAXone 1 GM Vial IVPUSH SCH (17:29)
[2020-03-26] MEDS: Pantoprazole 40 MG Vial IVPUSH SCH (20:16)
[2020-03-26] MEDS: Enoxaparin 30 MG/0.3 ML Syringe SUBCUT SCH (20:16)
[2020-03-26] MEDS: amLODIPine 2.5 MG Tab PO SCH (20:17)
[2020-03-27] MEDS: Lactated Ringers 1,000 ML IV SCH ×4 (00:17→19:51)
[2020-03-27] MEDS: METOPROLOL SUCCINATE 50 MG PO SCH (07:57)
[2020-03-27] MEDS: LOSARTAN PO SCH (07:58)
[2020-03-27] MEDS: Nicotine 14 MG/24 Hr Patch TRDERM SCH (07:58)
[2020-03-27] MEDS: HYDROCHLOROTHIAZIDE PO SCH (07:58)
[2020-03-27] MEDS: Pantoprazole 40 MG Vial IVPUSH SCH ×2 (07:59→19:52)
[2020-03-27] MEDS: cefTRIAXone 1 GM Vial IVPUSH SCH (16:12)
--- NOTE | 2020-03-27 16:20 | PCM.PN ---
- General Info Date of Service: 03/27/20 Admission Dx/Problem (Free Text): Pancreatitis Subjective Update: Buck is a 50 yo male who presents to the ED on 03/27/2020 with complaints of having upper abdominal pain that has been on and off since September. He had been in to see Dr. Sheth at that time and had similar type of pain and was also diagnosed with pancreatitis and his kidney functions were up. He states that he was supposed to have an US of gallbladder but never did it because pain improved and would come back on and off but not as severe. Didn't feel like he had time to do it so cancelled test. He denies drinking on regular basis stating that the last alcohol he drank was about 2 weeks ago and it was [address] Sheth had informed him that it was most likely from a bad gallbladder and stones. He states that he ate a gas station burger yesterday before his pain started. 03/27/2020 Buck is feeling a lot better today. Denies much of any discomfort today. Has been NPO as he is having ultrasound of the RUQ at 9:30. Denies any nausea or vomiting presently. Overall is feeling much better. Functional Status: Reports: Pain Controlled, Ambulating, Urinating - Review of Systems General: Denies: Fever, Weakness, Fatigue HEENT: Reports: No Symptoms Pulmonary: Reports: No Symptoms Cardiovascular: Reports: No Symptoms Gastrointestinal: Reports: Abdominal Pain. Denies: Diarrhea, Nausea, Vomiting Genitourinary: Reports: No Symptoms Musculoskeletal: Reports: No Symptoms Skin: Reports: No Symptoms Neurological: Reports: No Symptoms - Patient Data Vitals - Most Recent: Last Vital Signs Temp 98.6 F 03/27/20 16:00 Pulse 87 03/27/20 16:00 Resp 18 03/27/20 16:00 BP 150/93 H 03/27/20 16:00 Pulse Ox 91 L 03/27/20 16:00 Weight - Most Recent: 135 lb I&O - Last 24 Hours: Intake & Output 03/27/20 03/27/20 03/27/20 06:59 14:59 22:59 Intake Total 1935 1000 Output Total 900 Balance 1035 1000 Lab Results Last 24 Hours: Laboratory Results - last 24 hr 03/27/20 03/27/20 Range/Units 07:29 07:33 WBC 8.0 (5.0-10.0) 10^3/uL RBC 4.18 L (4.50-6.00) 10^6/uL Hgb 12.9 L (14.0-18.0) g/dL Hct 39.3 L (40.0-54.0) % MCV 94.0 (82.0-94.0) fL MCH 30.9 (27.0-32.0) pg MCHC 32.8 L (33.0-38.0) g/dL RDW Coeff of Edilia 13.3 (11.0-15.0) % Plt Count 221 (150-400) 10^3/uL Neut % (Auto) 68.4 (35-85) % Lymph % (Auto) 23.2 (10-55) % [place] % (Auto) 7.0 (0-16) % Eos % (Auto) 1.3 (0-5) % Baso % (Auto) 0.1 (0-3) % Neut # (Auto) 5.45 (1.80-7.00) 10^3/uL Lymph # (Auto) 1.85 (1.00-4.80) 10^3/uL [place] # (Auto) 0.56 (0.00-0.80) 10^3/uL Eos # (Auto) 0.10 (0.00-0.45) 10^3/uL Baso # (Auto) 0.01 10^3/uL Sodium 141 (136-145) mEq/L Potassium 4.1 (3.5-5.0) mEq/L Chloride 103 (98-106) mEq/L Carbon Dioxide 27 (21-32) mmol/L BUN 50 H (7-18) mg/dL Creatinine 2.7 H* (0.7-1.3) mg/dL Est Cr Clr Drug Dosing 27.72 mL/min Estimated GFR (MDRD) 25 L (>=60) mL/min Glucose 89 D (75-99) mg/dL Calcium 8.7 (8.4-10.1) mg/dL Total Bilirubin 0.5 (0.0-1.0) mg/dL AST 13 L (15-37) U/L ALT 8 L (12-78) U/L Alkaline Phosphatase 61 (46-116) U/L Total Protein 5.9 L (6.4-8.2) g/dL Albumin 2.7 L (3.4-5.0) g/dL Amylase 1200 H (25-115) U/L Lipase 2391 H (73-393) U/L Med Orders - Current: Current Medications Amlodipine Besylate (Norvasc) 5 mg PO BEDTIME [facility] Last Admin: 03/26/20 20:17 Dose: Not Given Documented by: Ceftriaxone Sodium (Rocephin) 1 gm IVPUSH Q24H [facility] Last Admin: 03/27/20 16:12 Dose: 1 gm Documented by: Enoxaparin Sodium (Lovenox) 30 mg SUBCUT Q24H [facility] Last Admin: 03/26/20 20:16 Dose: 30 mg Documented by: Lactated Ringer's (Ringers, Lactated) 1,000 mls @ 150 mls/hr IV ASDIRECTED [facility] Last Admin: 03/27/20 14:34 Dose: 150 mls/hr Documented by: Morphine Sulfate (Morphine) 2 mg IVPUSH Q2H PRN PRN Reason: Abdominal Pain Last Admin: 03/26/20 17:49 Dose: 2 mg Documented by: Nicotine (Habitrol) 14 mg TRDERM DAILY [facility] Last Admin: 03/27/20 07:58 Dose: 14 mg Documented by: Losartan/Hydrochlorothiazide [Losartan-Hctz 100- 25 Mg] Ptom 0 tab PO DAILY [facility] Last Admin: 03/27/20 07:58 Dose: 1 tab Documented by: Metoprolol Succinate [Toprol Xl 50mg] 50 Mg Ptom 0 mg PO DAILY [facility] Last Admin: 03/27/20 07:57 Dose: 50 mg Documented by: Ondansetron HCl (Zofran Odt) 4 mg PO Q4H PRN PRN Reason: nausea, able to take PO Pantoprazole Sodium (Protonix Iv) 40 mg IVPUSH Q12H [facility] Last Admin: 03/27/20 07:59 Dose: 40 mg Documented by: - Exam General: Alert, Oriented, Cooperative, No Acute Distress HEENT: No: Scleral Icterus Lungs: Clear to Auscultation, Normal Respiratory Effort Cardiovascular: Regular Rate, Regular Rhythm, No Murmurs GI/Abdominal Exam: Soft, No Distention, Tender (mild epigastric), Abnormal Bowel Sounds (hypoactive). No: Hepatomegaly, Splenomegaly Extremities: Normal Inspection, No Pedal Edema Skin: Warm, Dry, Intact Neurological: No New Focal Deficit Sepsis Event Note - Evaluation Sepsis Screening Result: No Definite Risk - Focused Exam Vital Signs: Vital Signs Temp Pulse Resp BP Pulse Ox 03/27/20 16:00 98.6 F 87 18 150/93 H 91 L 03/27/20 12:00 98.4 F 93 18 143/90 H 94 L 03/27/20 07:55 98.4 F 96 18 131/90 93 L - Problem List & Annotations (1) Renal insufficiency SNOMED Code(s): 274264432, 930971627 Code(s): N28.9 - DISORDER OF KIDNEY AND URETER, UNSPECIFIED Status: Acute Priority: High Current Visit: Yes (2) Pancreatitis SNOMED Code(s): 90677396 Code(s): K85.90 - ACUTE PANCREATITIS WITHOUT NECROSIS OR INFECTION, UNSP Status: Acute Priority: High Current Visit: No Qualifiers: Chronicity: acute Pancreatitis type: biliary Acute pancreatitis complication: unspecified Qualified Code(s): K85.10 - Biliary acute pancreatitis without necrosis or infection - Problem List Review Problem List Initiated/Reviewed/Updated: Yes - Plan Plan:: Will continue with IV fluids and to remain NPO until after ultrasound today. Will continue IV antibiotics at this time. WBC has improved to normal range today. Lipase has came down significantly as well. Creatinine at 2.7, consistent with prior. If diet is advanced today and tolerating without complications, will possibly plan for discharge tomorrow pending ultrasound report.
[2020-03-27] MEDS: Enoxaparin 30 MG/0.3 ML Syringe SUBCUT SCH (19:52)
[2020-03-27] MEDS: amLODIPine 2.5 MG Tab PO SCH (19:54)
[2020-03-28] MEDS: Lactated Ringers 1,000 ML IV SCH (04:14)
[2020-03-28] MEDS: Pantoprazole 40 MG Vial IVPUSH SCH ×2 (07:33→19:35)
[2020-03-28] MEDS: HYDROCHLOROTHIAZIDE PO SCH (07:34)
[2020-03-28] MEDS: LOSARTAN PO SCH (07:34)
[2020-03-28] MEDS: METOPROLOL SUCCINATE 50 MG PO SCH (07:34)
[2020-03-28] MEDS: Nicotine 14 MG/24 Hr Patch TRDERM SCH (07:35)
[2020-03-28] MEDS ORDERED: Acetaminophen 325 MG Tab PO PRN (11:59)
[2020-03-28] MEDS ORDERED: amLODIPine 2.5 MG Tab PO ONE (12:08)
[2020-03-28] MEDS: cefTRIAXone 1 GM Vial IVPUSH SCH (16:26)
[2020-03-28] MEDS: Enoxaparin 30 MG/0.3 ML Syringe SUBCUT SCH (19:35)
[2020-03-28] MEDS: amLODIPine 2.5 MG Tab PO SCH (19:39)
--- NOTE | 2020-03-28 22:16 | PCM.PN ---
- General Info Date of Service: 03/28/20 Admission Dx/Problem (Free Text): Pancreatitis Subjective Update: Buck is a 50 yo male who presents to the ED on 03/27/2020 with complaints of having upper abdominal pain that has been on and off since September. He had been in to see Dr. Sheth at that time and had similar type of pain and was also diagnosed with pancreatitis and his kidney functions were up. He states that he was supposed to have an US of gallbladder but never did it because pain improved and would come back on and off but not as severe. Didn't feel like he had time to do it so cancelled test. He denies drinking on regular basis stating that the last alcohol he drank was about 2 weeks ago and it was [address] Sheth had informed him that it was most likely from a bad gallbladder and stones. He states that he ate a gas station burger yesterday before his pain started. 03/27/2020 Buck is feeling a lot better today. Denies much of any discomfort today. Has been NPO as he is having ultrasound of the RUQ at 9:30. Denies any nausea or vomiting presently. Overall is feeling much better. 03/28/2020 Buck states he continues to feel better every day. Have advanced diet to clear liquids and tolerating. Denies any nausea or vomiting. No bowel movement since admit but does admit to passing gas. States he has mild discomfort but is tolerable without medication. No fevers or chills. Has been up ambulating in the hallway. - Review of Systems General: Reports: No Symptoms HEENT: Reports: No Symptoms Pulmonary: Reports: No Symptoms Cardiovascular: Reports: No Symptoms Gastrointestinal: Reports: Abdominal Pain (no significant pain, states more slight discomfort. ). Denies: Diarrhea, Melena, Nausea, Vomiting Genitourinary: Reports: No Symptoms Musculoskeletal: Reports: No Symptoms Skin: Reports: No Symptoms. Denies: Jaundice Neurological: Reports: No Symptoms - Patient Data Vitals - Most Recent: Last Vital Signs Temp 98.7 F 03/28/20 20:00 Pulse 78 03/28/20 20:00 Resp 18 03/28/20 20:00 BP 164/105 H 03/28/20 21:00 Pulse Ox 94 L 03/28/20 20:00 Weight - Most Recent: 135 lb I&O - Last 24 Hours: Intake & Output 03/28/20 03/28/20 03/28/20 06:59 14:59 22:59 Intake Total 1000 800 Output Total 1100 900 Balance -100 -100 Lab Results Last 24 Hours: Laboratory Results - last 24 hr 03/28/20 03/28/20 Range/Units 07:00 07:00 WBC 7.4 (5.0-10.0) 10^3/uL RBC 3.90 L (4.50-6.00) 10^6/uL Hgb 12.0 L (14.0-18.0) g/dL Hct 36.7 L (40.0-54.0) % MCV 94.1 H (82.0-94.0) fL MCH 30.8 (27.0-32.0) pg MCHC 32.7 L (33.0-38.0) g/dL RDW Coeff of Edilia 12.9 (11.0-15.0) % Plt Count 190 (150-400) 10^3/uL Neut % (Auto) 71.7 (35-85) % Lymph % (Auto) 18.4 (10-55) % [place] % (Auto) 7.5 (0-16) % Eos % (Auto) 2.0 (0-5) % Baso % (Auto) 0.4 (0-3) % Neut # (Auto) 5.27 (1.80-7.00) 10^3/uL Lymph # (Auto) 1.35 (1.00-4.80) 10^3/uL [place] # (Auto) 0.55 (0.00-0.80) 10^3/uL Eos # (Auto) 0.15 (0.00-0.45) 10^3/uL Baso # (Auto) 0.03 10^3/uL Sodium 141 (136-145) mEq/L Potassium 3.9 (3.5-5.0) mEq/L Chloride 105 (98-106) mEq/L Carbon Dioxide 29 (21-32) mmol/L BUN 42 H (7-18) mg/dL Creatinine 2.3 H (0.7-1.3) mg/dL Est Cr Clr Drug Dosing 32.54 mL/min Estimated GFR (MDRD) 30 L (>=60) mL/min Glucose 93 (75-99) mg/dL Calcium 8.0 L (8.4-10.1) mg/dL Total Bilirubin 0.4 (0.0-1.0) mg/dL AST 12 L (15-37) U/L ALT 7 L (12-78) U/L Alkaline Phosphatase 54 (46-116) U/L Total Protein 5.3 L (6.4-8.2) g/dL Albumin 2.4 L (3.4-5.0) g/dL Amylase 814 H (25-115) U/L Lipase 1533 H (73-393) U/L Med Orders - Current: Current Medications Acetaminophen (Tylenol) 650 mg PO Q6H PRN PRN Reason: Pain/Fever Last Admin: 03/28/20 12:13 Dose: 650 mg Documented by: Amlodipine Besylate (Norvasc) 5 mg PO BEDTIME [facility] Last Admin: 03/28/20 19:39 Dose: 5 mg Documented by: Ceftriaxone Sodium (Rocephin) 1 gm IVPUSH Q24H [facility] Last Admin: 03/28/20 16:26 Dose: 1 gm Documented by: Enoxaparin Sodium (Lovenox) 30 mg SUBCUT Q24H [facility] Last Admin: 03/28/20 19:35 Dose: 30 mg Documented by: Morphine Sulfate (Morphine) 2 mg IVPUSH Q2H PRN PRN Reason: Abdominal Pain Last Admin: 03/26/20 17:49 Dose: 2 mg Documented by: Nicotine (Habitrol) 14 mg TRDERM DAILY [facility] Last Admin: 03/28/20 07:35 Dose: 14 mg Documented by: Losartan/Hydrochlorothiazide [Losartan-Hctz 100- 25 Mg] Ptom 0 tab PO DAILY [facility] Last Admin: 03/28/20 07:34 Dose: 1 tab Documented by: Metoprolol Succinate [Toprol Xl 50mg] 50 Mg Ptom 0 mg PO DAILY [facility] Last Admin: 03/28/20 07:34 Dose: 50 mg Documented by: Ondansetron HCl (Zofran Odt) 4 mg PO Q4H PRN PRN Reason: nausea, able to take PO Pantoprazole Sodium (Protonix Iv) 40 mg IVPUSH Q12H [facility] Last Admin: 03/28/20 19:35 Dose: 40 mg Documented by: Discontinued Medications Amlodipine Besylate (Norvasc) 5 mg PO ONETIME ONE Stop: 03/28/20 12:09 Last Admin: 03/28/20 12:14 Dose: 5 mg Documented by: Lactated Ringer's (Ringers, Lactated) 1,000 mls @ 150 mls/hr IV ASDIRECTED [facility] Last Admin: 03/28/20 04:14 Dose: 150 mls/hr Documented by: - Exam General: Alert, Oriented, Cooperative, No Acute Distress Neck: Supple Lungs: Clear to Auscultation, Normal Respiratory Effort Cardiovascular: Regular Rate, Regular Rhythm, No Murmurs GI/Abdominal Exam: Normal Bowel Sounds, Soft, No Mass, Tender (mild epigastric discomfort) Back Exam: Normal Inspection Extremities: Normal Inspection, No Pedal Edema Peripheral Pulses: 1+: Dorsalis Pedis (L), Dorsalis Pedis (R) Skin: Warm, Dry, Intact Psy/Mental Status: Alert, Normal Affect, Normal Mood Sepsis Event Note - Evaluation Sepsis Screening Result: No Definite Risk - Focused Exam Vital Signs: Vital Signs Temp Pulse Resp BP BP Pulse Ox 03/28/20 21:00 164/105 H 03/28/20 20:00 98.7 F 78 18 180/110 H 94 L 03/28/20 19:39 180/110 H 03/28/20 18:20 98.3 F 03/28/20 16:00 99.7 F 80 18 167/97 H 95 03/28/20 13:26 99.4 F 158/102 H 03/28/20 12:14 172/106 H 03/28/20 12:00 99.7 F 74 16 172/106 H 96 - Problem List & Annotations (1) Renal insufficiency SNOMED Code(s): 811069209, 082762142 Code(s): N28.9 - DISORDER OF KIDNEY AND URETER, UNSPECIFIED Status: Acute Priority: High Current Visit: Yes (2) Pancreatitis SNOMED Code(s): 17267945 Code(s): K85.90 - ACUTE PANCREATITIS WITHOUT NECROSIS OR INFECTION, UNSP Status: Acute Priority: High Current Visit: No Qualifiers: Chronicity: acute Pancreatitis type: biliary Acute pancreatitis complication: unspecified Qualified Code(s): K85.10 - Biliary acute pancreatitis without necrosis or infection - Problem List Review Problem List Initiated/Reviewed/Updated: Yes - My Orders Last 24 Hours: My Active Orders 03/28/20 11:59 Acetaminophen [TylenoL] 650 mg PO Q6H PRN 03/28/20 Lunch Mechanical Soft Diet [DIET] - Plan Plan:: Will continue with IV fluids and to remain NPO until after ultrasound today. Will continue IV antibiotics at this time. WBC has improved to normal range today. Lipase has came down significantly as well. Creatinine at 2.7, consistent with prior. If diet is advanced today and tolerating without complications, will possibly plan for discharge tomorrow pending ultrasound report. 03/28/2020 Ultrasound completed yesterday did show cholelithiasis without cholecystitis. Patient has been receiving IV antibiotics. Labs continue to be stable with lipase and amylase improvement. Creatine improved to 2.[address] Sheth consulted and will d/c IV fluids and advance diet to mechanically soft. Plan for discharge tomorrow. Dr. Sheth recommended patient to be set up with Dr. Curran.
[2020-03-29] MEDS: Pantoprazole 40 MG Vial IVPUSH SCH (08:21)
[2020-03-29] MEDS: Nicotine 14 MG/24 Hr Patch TRDERM SCH (08:21)
[2020-03-29] MEDS: HYDROCHLOROTHIAZIDE PO SCH (08:28)
[2020-03-29] MEDS: LOSARTAN PO SCH (08:28)
[2020-03-29] MEDS: METOPROLOL SUCCINATE 50 MG PO SCH (08:29)
--- NOTE | 2020-03-29 19:05 | PCM.DCSUM1 ---
Discharge Summary - Hospital Course Free Text/Narrative:: Buck is a 50 year old male who presented to ER with complaints of RUQ pain. Had eaten a burger from the gas station the night prior and developed pain thereafter that had persisted to the next day. Had known history of gallbladder issues. Also had pancreatitis back in September and has had intermittent issues with upper quadrant pain since then but has not had further work up or follow up on his gallbladder as he states it had not been as bad since September. Had emesis x1. Severe pain. Also known history of cystic kidneys. Initial WBC 11.8. creatinine 2.7. Lipase and amylase 1162, 4065. Admitted observation. Started IV fluids and Rocephin. Pain meds. Diagnosis: Stroke: No Modified Laporte Scale: No Symptoms at All Modified Laporte Scale Score: 0 - Discharge Data Discharge Date: 03/29/20 Discharge Disposition: Home, Self-Care 01 Condition: Good - Referral to Home Health Primary Care Physician: Ezekiel Sheth MD - Discharge Diagnosis/Problem(s) (1) Pancreatitis SNOMED Code(s): 62321732 ICD Code: K85.90 - ACUTE PANCREATITIS WITHOUT NECROSIS OR INFECTION, UNSP Status: Acute Priority: High Current Visit: Yes Qualifiers: Chronicity: acute Pancreatitis type: biliary Acute pancreatitis complication: unspecified Qualified Code(s): K85.10 - Biliary acute pancreatitis without necrosis or infection (2) Renal insufficiency SNOMED Code(s): 888598649, 780678930 ICD Code: N28.9 - DISORDER OF KIDNEY AND URETER, UNSPECIFIED Status: Acute Priority: High Current Visit: Yes - Patient Summary/Data Complications: none Hospital Course: Patient is doing well today. Denies any pain. No nausea or vomiting. Has been eating well since diet was increased. No fevers. WBC is stable now at 7.9. Creatinine is improved to 2.0. Lipase and amylase have improved, amylase now 746. Lipase 2889. Gallbladder ultrasound was done, does show polycystic kidneys, cholelithiasis without evidence of cholecystitis and small ascites. Common bile duct is enlarged with suggestion to better evaluate with MRCP. Blood pressure has been elevated, did increase Amlodipine today. Did contact Dr. Curran with ultrasound report and current evaluation and labs. Suggests eval with GI due to possible stone in the duct that will need further evaluation. Will have patient follow up with Dr. Sheth this week to recheck blood pressure in order to get in control for surgery. Arrange for GI consult. - Patient Instructions Diet: Usual Diet as Tolerated Activity: As Tolerated - Discharge Plan *PRESCRIPTION DRUG MONITORING PROGRAM REVIEWED*: Not Applicable *COPY OF PRESCRIPTION DRUG MONITORING REPORT IN PATIENT [place]: Not Applicable Prescriptions/Med Rec: amLODIPine Besylate [Norvasc] 10 mg PO DAILY #30 tablet Home Medications: Home Meds Losartan/Hydrochlorothiazide [Losartan-HCTZ 100-25 MG] 1 tab PO DAILY 10/21/19 [History] Metoprolol Succinate [Toprol XL 50mg] 50 mg PO DAILY 10/21/19 [History] amLODIPine Besylate [Norvasc] 10 mg PO DAILY #30 tablet 03/29/20 [Rx] Patient Handouts: Acute Pancreatitis Forms: ED Department Discharge Referrals: Ezekiel Sheth MD [Primary Care Provider] - (Follow up with Dr. Sheth on Tuesday or Tuesday for reevaluation of blood pressure and arrange for surgery and MRCP. ) - Discharge Summary/Plan Comment DC Time >30 min.: No - General Info Date of Service: 03/29/20 Admission Dx/Problem (Free Text: Pancreatitis Functional Status: Reports: Pain Controlled, Tolerating Diet, Ambulating - Review of Systems General: Denies: Fever, Weakness, Fatigue, Malaise HEENT: Reports: No Symptoms Pulmonary: Denies: Shortness of Breath, Cough Cardiovascular: Denies: Chest Pain Gastrointestinal: Denies: Abdominal Pain, Nausea, Vomiting Genitourinary: Reports: No Symptoms Musculoskeletal: Reports: No Symptoms Skin: Reports: No Symptoms Neurological: Denies: Headache, Weakness - Patient Data Vitals - Most Recent: Last Vital Signs Temp 98.4 F 03/29/20 08:00 Pulse 88 03/29/20 08:00 Resp 20 03/29/20 08:00 BP 169/108 H 03/29/20 08:00 Pulse Ox 98 03/29/20 08:00 Weight - Most Recent: 135 lb I&O - Last 24 hours: Intake & Output 03/29/20 03/29/20 03/29/20 06:59 14:59 22:59 Intake Total 200 Output Total 1200 Balance -1000 Lab Results - Last 24 hrs: Laboratory Results - last 24 hr 03/29/20 03/29/20 Range/Units 06:00 06:00 WBC 7.9 (5.0-10.0) 10^3/uL RBC 4.32 L (4.50-6.00) 10^6/uL Hgb 13.1 L (14.0-18.0) g/dL Hct 39.7 L (40.0-54.0) % MCV 91.9 (82.0-94.0) fL MCH 30.3 (27.0-32.0) pg MCHC 33.0 (33.0-38.0) g/dL RDW Coeff of Edilia 12.7 (11.0-15.0) % Plt Count 201 (150-400) 10^3/uL Neut % (Auto) 73.9 (35-85) % Lymph % (Auto) 17.7 (10-55) % [place] % (Auto) 7.2 (0-16) % Eos % (Auto) 1.1 (0-5) % Baso % (Auto) 0.1 (0-3) % Neut # (Auto) 5.83 (1.80-7.00) 10^3/uL Lymph # (Auto) 1.40 (1.00-4.80) 10^3/uL [place] # (Auto) 0.57 (0.00-0.80) 10^3/uL Eos # (Auto) 0.09 (0.00-0.45) 10^3/uL Baso # (Auto) 0.01 10^3/uL Sodium 141 (136-145) mEq/L Potassium 3.8 (3.5-5.0) mEq/L Chloride 103 (98-106) mEq/L Carbon Dioxide 27 (21-32) mmol/L BUN 34 H (7-18) mg/dL Creatinine 2.0 H (0.7-1.3) mg/dL Est Cr Clr Drug Dosing 37.42 mL/min Estimated GFR (MDRD) 35 L (>=60) mL/min Glucose 107 H (75-99) mg/dL Calcium 8.7 (8.4-10.1) mg/dL Total Bilirubin 0.3 (0.0-1.0) mg/dL AST 16 (15-37) U/L ALT 9 L (12-78) U/L Alkaline Phosphatase 62 (46-116) U/L Total Protein 6.4 (6.4-8.2) g/dL Albumin 2.8 L (3.4-5.0) g/dL Amylase 746 H (25-115) U/L Lipase 2889 H (73-393) U/L Med Orders - Current: Current Medications Acetaminophen (Tylenol) 650 mg PO Q6H PRN PRN Reason: Pain/Fever Last Admin: 03/28/20 12:13 Dose: 650 mg Documented by: Amlodipine Besylate (Norvasc) 5 mg PO BEDTIME [facility] Last Admin: 03/28/20 19:39 Dose: 5 mg Documented by: Ceftriaxone Sodium (Rocephin) 1 gm IVPUSH Q24H [facility] Last Admin: 03/28/20 16:26 Dose: 1 gm Documented by: Enoxaparin Sodium (Lovenox) 30 mg SUBCUT Q24H [facility] Last Admin: 03/28/20 19:35 Dose: 30 mg Documented by: Morphine Sulfate (Morphine) 2 mg IVPUSH Q2H PRN PRN Reason: Abdominal Pain Last Admin: 03/26/20 17:49 Dose: 2 mg Documented by: Nicotine (Habitrol) 14 mg TRDERM DAILY [facility] Last Admin: 03/29/20 08:21 Dose: 14 mg Documented by: Losartan/Hydrochlorothiazide [Losartan-Hctz 100- 25 Mg] Ptom 0 tab PO DAILY [facility] Last Admin: 03/29/20 08:28 Dose: 1 tab Documented by: Metoprolol Succinate [Toprol Xl 50mg] 50 Mg Ptom 0 mg PO DAILY [facility] Last Admin: 03/29/20 08:29 Dose: 50 mg Documented by: Ondansetron HCl (Zofran Odt) 4 mg PO Q4H PRN PRN Reason: nausea, able to take PO Pantoprazole Sodium (Protonix Iv) 40 mg IVPUSH Q12H [facility] Last Admin: 03/29/20 08:21 Dose: 40 mg Documented by: Discontinued Medications Amlodipine Besylate (Norvasc) 5 mg PO ONETIME ONE Stop: 03/28/20 12:09 Last Admin: 03/28/20 12:14 Dose: 5 mg Documented by: Lactated Ringer's (Ringers, Lactated) 1,000 mls @ 150 mls/hr IV ASDIRECTED [facility] Last Admin: 03/28/20 04:14 Dose: 150 mls/hr Documented by: - Exam General: Reports: Alert, Oriented HEENT: Reports: Mucous Membr. Moist/[place] Neck: Reports: Supple Lungs: Reports: Clear to Auscultation, Normal Respiratory Effort Cardiovascular: Reports: Regular Rate, Regular Rhythm GI/Abdominal Exam: Normal Bowel Sounds, Soft, Non-Tender Extremities: Normal Inspection, No Pedal Edema Skin: Reports: Warm, Dry Neurological: Reports: No New Focal Deficit
== END 2020-03-29 10:50 | disposition home or self-care (01) ==
LOC: CC.ED 13:52 → CC.MS 15:52 → UNDOADMOB 15:52 → CC.MS 16:11
PROVIDERS: ADMIT Physician Assistant Medical; ATTEND Family Medicine
DX: K85.90 Acute pancreatitis without necrosis or infection, unspecified (principal); I12.9 Hypertensive chronic kidney disease with stage 1 through stage 4 chronic kidney disease, or unspecified chronic kidney disease; N18.9 Chronic kidney disease, unspecified; F17.210 Nicotine dependence, cigarettes, uncomplicated; Z20.822 Contact with and (suspected) exposure to COVID-19; Z79.899 Other long term (current) drug therapy
CPT/HCPCS: 36415; 76705; 80053; 81001; 82150; 83690; 85025; 96372; 96374; 96375; 96376; 99284; A9270-GY; C9113; G0378; J0696; J1650; J2270; J7120; U0002

== ENCOUNTER 2020-05-20 19:03 | Emergency (ER) | payer BC ==
[2020-05-20] MEDS ORDERED: fentaNYL 50 MCG/ML SDV IVPUSH ONE (19:05)
[2020-05-20] MEDS ORDERED: cloNIDine 0.1 MG Tab PO ONE (19:27)
[2020-05-20] MEDS ORDERED: HYDROmorphone 1 MG/ML Syringe IVPUSH ONE ×3 (19:28→21:40)
--- NOTE | 2020-05-20 19:40 | EDM.PDOC ---
ED HPI GENERAL MEDICAL PROBLEM - General Chief Complaint: Abdominal Pain Stated Complaint: abd pain Time Seen by Provider: 05/20/20 19:22 Source of Information: Reports: Patient History Limitations: Reports: No Limitations - History of Present Illness INITIAL COMMENTS - FREE TEXT/NARRATIVE: Buck is a 50 year old male who presents to ER with complaints of upper quadrant abdominal pain. Had a lap chriss on May [address] Marte in [place]. States "was an unusual something on my pancreas" and is scheduled for a scope/possible MCRP on Tuesday. Admits surgery did go well except had post op nausea. Was doing well until today when began getting nauseated again and pain set in. Rates pain a /10. Had been eating and drinking well prior to today. No diarrhea or constipation issues. Has a chronic history of pancreatitis. Denies any alcohol intake. Onset: Unknown/Unsure Duration: Hour(s):, Getting Worse Location: Reports: Abdomen Quality: Reports: Sharp, Throbbing Severity: Severe Improves with: Reports: Rest (improves with lying flat) Associated Symptoms: Reports: Malaise, Nausea/Vomiting. Denies: Chest Pain, Cough, Diaphoresis, Fever/Chills, Headaches, Shortness of Breath Upper Abdominal Pain Score (Numeric/FACES): 9 - Related Data Allergies Allergy/AdvReac Type Severity Reaction Status Date / Time No Known Allergies Allergy Verified 05/20/20 19:15 Home Meds: Home Meds Losartan/Hydrochlorothiazide [Losartan-HCTZ 100-25 MG] 1 tab PO DAILY 10/21/19 [History] Metoprolol Succinate [Toprol XL 50mg] 50 mg PO DAILY 10/21/19 [History] amLODIPine Besylate [Norvasc] 10 mg PO DAILY #30 tablet 03/29/20 [Rx] Past Medical History Cardiovascular History: Reports: Hypertension Gastrointestinal History: Reports: Pancreatitis Genitourinary History: Reports: Chronic Renal Insuffiency - Past Surgical History GI Surgical History: Reports: Cholecystectomy Social & Family History - Family History Cardiac: Reports: Hypertension : Reports: Cystic Kidney Disease - Tobacco Use Tobacco Use Status *Q: Current Every Day Tobacco User Years of Tobacco use: 20 Packs/Tins Daily: 1 - Caffeine Use Caffeine Use: Reports: None - Recreational Drug Use Recreational Drug Use: No ED ROS GENERAL - Review of Systems Review Of Systems: See Below Constitutional: Reports: Malaise, Decreased Appetite. Denies: Fever, Chills, Weakness, Fatigue HEENT: Denies: Ear Pain, Sinus Problem, Throat Pain Respiratory: Denies: Shortness of Breath, Cough Cardiovascular: Denies: Chest Pain, Edema, Lightheadedness Endocrine: Denies: Fatigue GI/Abdominal: Reports: Abdominal Pain, Nausea. Denies: Black Stool, Bloody Stool, Constipation, Diarrhea, Vomiting : Reports: No Symptoms Musculoskeletal: Reports: No Symptoms Skin: Reports: No Symptoms Neurological: Reports: No Symptoms ED EXAM, GI/ABD - Physical Exam Exam: See Below Exam Limited By: No Limitations General Appearance: Alert, WD/WN, Mild Distress Ears: Normal External Exam, Normal TMs Nose: Normal Inspection, Normal Mucosa Throat/Mouth: Normal Inspection, Normal Oropharynx Head: Normocephalic Neck: Normal Inspection, Supple, Non-Tender Respiratory/Chest: No Respiratory Distress, Lungs Clear, Normal Breath Sounds Cardiovascular: Regular Rate, Rhythm GI/Abdominal Exam: Normal Bowel Sounds, Soft, Tender (upper quadrants. Puncture wounds are all healing well. Steri strips removed from sites.) Extremities: Normal Inspection, No Pedal Edema Course - Vital Signs Last Recorded V/S: Last Vital Signs Temp 98.7 F 05/20/20 22:15 Pulse 102 H 05/20/20 22:30 Resp 18 05/20/20 22:30 BP 156/104 H 05/20/20 22:30 Pulse Ox 96 05/20/20 22:30 - Orders/Labs/Meds Orders: Active Orders 24 hr Category Date Time Status Abdomen Pelvis w Cont [CT] Stat Exams 05/20/20 19:55 Stop Req Abdomen Pelvis wo Cont [CT] Stat Exams 05/20/20 20:16 Ordered Sodium Chloride 0.9% [Normal Saline] 1,000 ml Med 05/20/20 19:45 Active IV ASDIRECTED Medication Orders Sodium Chloride (Normal Saline) 1,000 mls @ 250 mls/hr IV ASDIRECTED ERICA Last Admin: 05/20/20 19:46 Dose: 250 mls/hr Documented by: ELVIRA Labs: Laboratory Tests 05/20/20 05/20/20 Range/Units 19:04 19:41 WBC 11.2 H (5.0-10.0) 10^3/uL RBC 4.18 L (4.50-6.00) 10^6/uL Hgb 12.3 L (14.0-18.0) g/dL Hct 37.3 L (40.0-54.0) % MCV 89.2 (82.0-94.0) fL MCH 29.4 (27.0-32.0) pg MCHC 33.0 (33.0-38.0) g/dL RDW Coeff of Edilia 13.0 (11.0-15.0) % Plt Count 305 (150-400) 10^3/uL Neut % (Auto) 76.6 (35-85) % Lymph % (Auto) 17.3 (10-55) % [place] % (Auto) 4.8 (0-16) % Eos % (Auto) 1.1 (0-5) % Baso % (Auto) 0.2 (0-3) % Neut # (Auto) 8.55 H (1.80-7.00) 10^3/uL Lymph # (Auto) 1.93 (1.00-4.80) 10^3/uL [place] # (Auto) 0.54 (0.00-0.80) 10^3/uL Eos # (Auto) 0.12 (0.00-0.45) 10^3/uL Baso # (Auto) 0.02 10^3/uL Sodium 142 (136-145) mEq/L Potassium 3.3 L D (3.5-5.0) mEq/L Chloride 102 (98-106) mEq/L Carbon Dioxide 23 (21-32) mmol/L BUN 26 H (7-18) mg/dL Creatinine 2.1 H (0.7-1.3) mg/dL Est Cr Clr Drug Dosing 35.64 mL/min Estimated GFR (MDRD) 33 L (>=60) mL/min Glucose 144 H (75-99) mg/dL Calcium 9.0 (8.4-10.1) mg/dL Total Bilirubin 0.5 (0.0-1.0) mg/dL AST 26 (15-37) U/L ALT 17 (12-78) U/L Alkaline Phosphatase 151 H (46-116) U/L C-Reactive Protein 2.1 H (0.2-0.8) mg/dL Total Protein 7.2 (6.4-8.2) g/dL Albumin 3.4 (3.4-5.0) g/dL Amylase 193 H (25-115) U/L Lipase 2462 H (73-393) U/L Meds: Medications Generic Name Dose Route Start Last Admin Trade Name Peyton PRN Reason Stop Dose Admin Sodium Chloride 1,000 mls @ 250 mls/hr 05/20/20 19:45 05/20/20 19:46 Normal Saline IV 250 mls/hr ASDIRECTED ERICA Administration Discontinued Medications Generic Name Dose Route Start Last Admin Trade Name Peyton PRN Reason Stop Dose Admin Clonidine HCl 0.1 mg 05/20/20 19:27 05/20/20 19:33 Clonidine 0.1 Mg Tab PO 05/20/20 19:28 0.1 mg PREPRO ONE Administration Fentanyl 25 mcg 05/20/20 19:05 05/20/20 19:09 Fentanyl 50 Mcg/Ml Sdv IVPUSH 05/20/20 19:06 25 mcg ONETIME ONE Administration Hydralazine HCl 10 mg 05/20/20 21:53 05/20/20 22:03 Hydralazine 20 Mg/Ml Sdv IVPUSH 05/20/20 21:54 10 mg ONETIME ONE Administration Hydromorphone HCl 1 mg 05/20/20 19:28 05/20/20 19:33 Hydromorphone 1 Mg/Ml Syringe IVPUSH 05/20/20 19:29 1 mg ONETIME ONE Administration Hydromorphone HCl 1 mg 05/20/20 21:26 05/20/20 21:41 Hydromorphone 1 Mg/Ml Syringe IVPUSH 05/20/20 21:27 Not Given ONETIME ONE Hydromorphone HCl 2 mg 05/20/20 21:40 05/20/20 21:44 Hydromorphone 1 Mg/Ml Syringe IVPUSH 05/20/20 21:41 2 mg ONETIME ONE Administration Labetalol HCl 20 mg 05/20/20 20:46 05/20/20 20:56 Labetalol 100 Mg/20 Ml Mdv IVPUSH 05/20/20 20:47 20 mg ONETIME ONE Administration Protocol Labetalol HCl 20 mg 05/20/20 21:17 03/23/21 21:25 Labetalol 100 Mg/20 Ml Mdv IVPUSH 05/20/20 21:18 20 mg ONETIME ONE Administration Protocol - Re-Assessments/Exams Free Text/Narrative Re-Assessment/Exam: 05/20/201949- Patient has been given Fentanyl and now Dilaudid, more relaxed. Still rates pain at an 8. blood pressure high, was given Clonidine. IV fluids infusing. Will proceed with CT of abdomen without contrast as creatinine high at 2.1. Lipase and Amylase high, comparable to previous evaluations with known pancreatitis. 2044- Blood pressure still high. Labetalol ordered. 2129-Blood pressure has still ranged high, 230s/130s. Second dose of labetalol given. Contacted Dr. Sheth, patient given 2 mg of Dilaudid. 2199-[facility] contacted, spoke with Dr. Holloway. Advised to give Hydralazine for ongoing hypertension, now 217/130. Agreed to accept the patient in transfer. Risks and benefits given to patient. Risks of transfer include worsening status, vehicle crash or . Benefits of transfer include more definitive testing and treatment for the pancreatic mass, hypertensive emergency. Risks of non transfer include worsening status and possible . Benefits of non transfer include care close to home. patient agrees to transfer. 05/20/20 22:32 Blood pressure improved, 156/104. Departure - Departure Time of Disposition: 22:33 Disposition: DC/Tfer to Acute Hospital 02 Condition: Fair Clinical Impression: Hypertensive emergency Pancreatitis Qualifiers: Chronicity: acute Pancreatitis type: biliary Acute pancreatitis complication: unspecified Qualified Code(s): K85.10 - Biliary acute pancreatitis without necrosis or infection - Discharge Information *PRESCRIPTION DRUG MONITORING PROGRAM REVIEWED*: No *COPY OF PRESCRIPTION DRUG MONITORING REPORT IN PATIENT RENETTA: No Referrals: Ezekiel Sheth MD [Primary Care Provider] - Forms: ED Department Discharge Additional Instructions: Transfer to [facility] per ALS to Dr. Holloway Sepsis Event Note (ED) - Evaluation Sepsis Screening Result: No Definite Risk - Focused Exam Vital Signs: Vital Signs Temp Pulse Resp BP BP BP Pulse Ox 05/20/20 22:30 102 H 18 156/104 H 96 05/20/20 22:15 98.7 F 104 H 18 166/103 H 96 05/20/20 22:00 101 H 174/115 H 97 05/20/20 21:57 103 H 180/120 H 96 05/20/20 21:45 100 213/129 H 92 L 05/20/20 21:33 98 201/124 H 97 05/20/20 21:22 99.2 F 92 20 217/133 H 98 05/20/20 21:07 94 216/128 H 97 05/20/20 20:47 95 237/137 H 98 05/20/20 20:27 98 241/149 H 94 L 05/20/20 20:24 85 253/142 H 96 05/20/20 20:04 95 245/141 H 94 L 05/20/20 19:47 89 241/137 H 96 05/20/20 19:35 73 236/126 H 100 05/20/20 19:33 228/130 H 05/20/20 19:27 75 228/130 H 100 05/20/20 19:20 72 223/118 H 100 05/20/20 19:03 97.8 F 96 18 244/164 H 247/135 H 100 - My Orders Last 24 Hours: My Active Orders 05/20/20 19:45 Sodium Chloride 0.9% [Normal Saline] 1,000 ml IV ASDIRECTED 05/20/20 19:55 Abdomen Pelvis w Cont [CT] Stat 05/20/20 20:16 Abdomen Pelvis wo Cont [CT] Stat - Assessment/Plan Last 24 Hours: My Active Orders 05/20/20 19:45 Sodium Chloride 0.9% [Normal Saline] 1,000 ml IV ASDIRECTED 05/20/20 19:55 Abdomen Pelvis w Cont [CT] Stat 05/20/20 20:16 Abdomen Pelvis wo Cont [CT] Stat
[2020-05-20] MEDS ORDERED: Sodium Chloride 0.9% 1,000 ML IV SCH (19:45)
[2020-05-20] MEDS ORDERED: Labetalol 100 MG/20 ML MDV IVPUSH ONE ×2 (20:46→21:17)
[2020-05-20] MEDS ORDERED: hydrALAZINE 20 MG/ML SDV IVPUSH ONE (21:53)
[2020-05-20] MEDS ORDERED: HYDROmorphone 1 MG/ML Syringe IVPUSH PRN (22:37)
== END 2020-05-20 23:32 ==
LOC: CC.ED 19:03
DX: K85.10 Biliary acute pancreatitis without necrosis or infection (principal); I16.1 Hypertensive emergency; I12.9 Hypertensive chronic kidney disease with stage 1 through stage 4 chronic kidney disease, or unspecified chronic kidney disease; N18.9 Chronic kidney disease, unspecified; Z72.0 Tobacco use
CPT/HCPCS: 36415; 74176; 80053; 82150; 83690; 85025; 86140; 96374; 96375; 96376; 99285-25; A9270-GY; J0360; J1170; J3010; J3490; J7030

== ENCOUNTER 2021-01-01 09:36 | Inpatient (IN) | payer BC ==
[2021-01-01] MEDS ORDERED: Albuterol/Ipratropium 3.0-0.5 MG/3 ML Neb Soln INH PRN (16:37)
[2021-01-01] MEDS ORDERED: Zolpidem 5 MG Tab PO PRN (16:37)
[2021-01-01] MEDS ORDERED: traMADol 50 MG Tab PO PRN (16:37)
[2021-01-01] MEDS ORDERED: Calcium Carbonate 500 MG Tab.Chew PO PRN (16:37)
[2021-01-01] MEDS: Nicotine 21 MG/24 Hr Patch TRDERM SCH (16:41)
--- NOTE | 2021-01-01 16:46 | PCM.HP.2 ---
H&P History of Present Illness - General Date of Service: 01/01/21 Admit Problem/Dx: Admission Diagnosis/Problem Admission Diagnosis/Problem Pancreaticoduodenectomy Source of Information: Patient, Old Records, RN History Limitations: Reports: No Limitations - History of Present Illness Initial Comments - Free Text/Narative: Buck is a 50 yo male who presents to the hospital for swing bed direct admission. Buck underwent whipple procedure on the 19 of November secondary to pancreatic cancer. Patient went into multi organ failure on the 26 of November and ended up in the ICU. Has been transitioned to swing bed at this time. He was receiving Unasyn which was completed this morning. Now will be starting Augmentin today orally. Patient is here for strengthening via physical therapy. He states he is gradually feeling better. Hasn't been up by himself yet but states he is getting stronger. Currently needs 1 person assist. He doesn't have any complaints or discomfort at this time. States they did take out his central line this morning as well. - Related Data Allergies/Adverse Reactions: Allergies Allergy/AdvReac Type Severity Reaction Status Date / Time lisinopril Allergy Edema Verified 01/01/21 14:31 Home Medications: Home Meds Metoprolol Succinate [Toprol XL 50mg] 100 mg PO DAILY 10/21/19 [History] Acetaminophen [Tylenol] 650 mg PO Q4H PRN 01/01/21 [History] Albuterol/Ipratropium [DuoNeb 3.0-0.5 MG/3 ML] 1 inh INH QID PRN 01/01/21 [History] Amoxicillin/Clavulanate K [Augmentin 875-125 MG] 1 tab PO BID 01/01/21 [History] Calcium Carbonate [Tums] 1,000 mg PO Q4H PRN 01/01/21 [History] Cholecalciferol (Vitamin D3) [Vitamin D3] 50 mcg PO DAILY 01/01/21 [History] Heparin Sodium,Porcine/PF [Heparin Sod 5,000 Unit/0.5 ml] 5,000 unit SQ Q8H 01/01/21 [History] Insulin Aspart [NovoLOG] 2 - 12 unit SQ TIDMEALS 01/01/21 [History] Omeprazole 20 mg PO DAILY 01/01/21 [History] Prochlorperazine Maleate [Compazine] 10 mg PO Q6H PRN 01/01/21 [History] Tamsulosin [Tamsulosin 24 Hr] 0.4 mg PO BEDTIME 01/01/21 [History] Voriconazole 200 mg PO BID 01/01/21 [History] Zolpidem [Ambien] 5 mg PO BEDTIME PRN 01/01/21 [History] dronabinoL [Marinol] 5 mg PO BIDAC 01/01/21 [History] oxyCODONE 5 - 10 mg PO Q4H PRN 01/01/21 [History] traMADol [Ultram] 50 mg PO Q6H PRN 01/01/21 [History] Past Medical History Cardiovascular History: Reports: Hypertension Gastrointestinal History: Reports: Pancreatitis Genitourinary History: Reports: Chronic Renal Insuffiency Oncologic (Cancer) History: Reports: Pancreatic - Past Surgical History GI Surgical History: Reports: Cholecystectomy, Other (See Below) Other GI Surgeries/Procedures: Whipple procedure Social & Family History - Family History Family Medical History: No Pertinent Family History Cardiac: Reports: Hypertension : Reports: Cystic Kidney Disease - Caffeine Use Caffeine Use: Reports: None H&P Review of Systems - Review of Systems: Review Of Systems: See Below General: Reports: Weakness. Denies: Fever, Decreased Appetite HEENT: Reports: No Symptoms Pulmonary: Reports: No Symptoms Cardiovascular: Reports: No Symptoms Gastrointestinal: Denies: Abdominal Pain, Constipation, Diarrhea, Nausea, Vomiting Genitourinary: Reports: No Symptoms Musculoskeletal: Reports: No Symptoms Skin: Reports: Wound (dressing changed today) Psychiatric: Reports: No Symptoms Neurological: Reports: No Symptoms Exam - Exam Exam: See Below - Vital Signs Vital Signs: Last Vital Signs Temp 97.8 F 01/01/21 14:58 Pulse 68 01/01/21 14:58 Resp 18 01/01/21 14:58 BP 168/90 H 01/01/21 14:58 Pulse Ox 96 01/01/21 14:58 Weight: 140 lb 6.4 oz - Exam General: Alert, Oriented, Cooperative HEENT: Conjunctiva Clear, EOMI, Hearing Intact, Nares Patent, Normal Nasal Septum Neck: Supple, Trachea Midline Lungs: Clear to Auscultation, Normal Respiratory Effort Cardiovascular: Regular Rate, Regular Rhythm GI/Abdominal Exam: Normal Bowel Sounds, Soft, No Organomegaly, No Mass Extremities: Pedal Edema Skin: Warm, Dry, Intact Neuro Extensive - Mental Status: Alert, Oriented x3, Normal Mood/Affect, Normal Cognition Psychiatric: Alert, Normal Affect, Normal Mood Sepsis Event Note - Evaluation Sepsis Screening Result: No Definite Risk - Focused Exam Vital Signs: Vital Signs Temp Pulse Resp BP Pulse Ox 01/01/21 14:58 97.8 F 68 18 168/90 H 96 - Problem List (1) History of Whipple procedure SNOMED Code(s): 934965187195886 ICD Code: Z90.410 - ACQUIRED TOTAL ABSENCE OF PANCREAS; Z90.49 - ACQUIRED ABSENCE OF OTHER SPECIFIED PARTS OF DIGESTIVE TRACT Status: Acute Current Visit: Yes (2) Multi-organ system dysfunction SNOMED Code(s): 54210100 ICD Code: [id number] - Status: Resolved Current Visit: Yes Problem List Initiated/Reviewed/Updated: Yes Orders Last 24hrs: Active Orders 24 hr Category Date Time Status Patient Status [ADT] Routine ADT 01/01/21 14:58 Active Ambulate [RC] .PRN Care 01/01/21 14:58 Active Blood Glucose Check, Bedside [RC] 0730,1130,1700,2030 Care 01/01/21 14:58 Active Height and Weight [RC] Q7D Care 01/01/21 15:02 Active May Shower [RC] .PRN Care 01/01/21 14:58 Active Oxygen Therapy [RC] .PRN Care 01/01/21 14:58 Active RT Aerosol Therapy [RC] ASDIRECTED Care 01/01/21 16:39 Ordered Up With Assistance [RC] .PRN Care 01/01/21 14:58 Active Vital Signs [RC] 0800,1999 Care 01/01/21 14:58 Active Wound Care [RC] 08 Care 01/01/21 14:58 Active PT Evaluation and Treatment [CONS] Routine Cons 01/01/21 14:58 Active Consistent Carbohydrate Diet [DIET] Diet 01/01/21 Dinner Active Acetaminophen [TylenoL] Med 01/01/21 16:37 Ordered 650 mg PO Q4H PRN Albuterol/Ipratropium [DuoNeb 3.0-0.5 MG/3 ML] Med 01/01/21 16:37 Ordered 1 inh INH QID PRN Amoxicillin/Clavulanate K [Augmentin 875 MG/125 MG] Med 01/01/21 20:00 Ordered 1 tab PO BID Calcium Carbonate [Tums] Med 01/01/21 16:37 Ordered 1,000 mg PO Q4H PRN Cholecalciferol (Vitamin D3) [Vitamin D3] Med 01/02/21 08:00 Ordered 50 mcg PO DAILY Heparin Sodium,Porcine/PF [Heparin Sod 5,000 Unit/0.5 Med 01/01/21 16:45 Ordered ml] 5,000 unit SQ Q8H Insulin Aspart [NovoLOG] Med 01/01/21 17:30 Ordered 2 - 12 unit SQ TIDMEALS Metoprolol Succinate [Toprol XL 50mg] Med 01/02/21 08:00 Ordered 100 mg PO DAILY Nicotine [Habitrol] Med 01/01/21 15:15 Active 21 mg TRDERM DAILY Omeprazole [Omeprazole] Med 01/02/21 08:00 Ordered 20 mg PO DAILY Prochlorperazine [Compazine] Med 01/01/21 16:37 Ordered 10 mg PO Q6H PRN Tamsulosin [Flomax] Med 01/01/21 20:00 Ordered 0.4 mg PO BEDTIME Voriconazole Med 01/01/21 20:00 Ordered 200 mg PO BID Zolpidem [Ambien] Med 01/01/21 16:37 Ordered 5 mg PO BEDTIME PRN dronabinoL Med 01/01/21 17:00 Ordered 5 mg PO BIDAC oxyCODONE Med 01/01/21 16:37 Ordered 5 - 10 mg PO Q4H PRN traMADol [Ultram] Med 01/01/21 16:37 Ordered 50 mg PO Q6H PRN Resuscitation Status Routine Resus Stat 01/01/21 14:58 Ordered Medication Orders Acetaminophen (Acetaminophen 325 Mg Tab) 650 mg PO Q4H PRN PRN Reason: Pain Albuterol/Ipratropium (Albuterol/Ipratropium 3.0-0.5 Mg/3 Ml Neb Soln) ml INH QID PRN PRN Reason: Dyspnea Amoxicillin/Clavulanate Potassium (Amoxicillin/Clavulanate K 875-125 Mg Tab) 1 tab PO BID ERICA Calcium Carbonate/Glycine (Calcium Carbonate 500 Mg Tab.Chew) 1,000 mg PO Q4H PRN PRN Reason: Dyspepsia Nicotine (Nicotine 21 Mg/24 Hr Patch) 21 mg TRDERM DAILY [facility] Non-Formulary Medication (Cholecalciferol (Vitamin D3) [Vitamin D3]) 50 mcg PO DAILY ERICA Non-Formulary Medication (Dronabinol) 5 mg PO BIDAC ERICA Non-Formulary Medication (Heparin Sodium,Porcine/Pf [Heparin Sod 5,000 Unit/0.5 Ml]) 5,000 unit SQ Q8H ERICA Non-Formulary Medication (Insulin Aspart [Novolog]) 2 - 12 unit SQ TIDMEALS ERICA Non-Formulary Medication (Metoprolol Succinate [Toprol Xl 50mg]) 100 mg PO DAILY ERICA Non-Formulary Medication (Omeprazole [Omeprazole]) 20 mg PO DAILY ERICA Non-Formulary Medication (Voriconazole) 200 mg PO BID ERICA Oxycodone HCl (Oxycodone 5 Mg Tab) 5 - 10 mg PO Q4H PRN PRN Reason: Pain Prochlorperazine Maleate (Prochlorperazine 10 Mg Tab) 10 mg PO Q6H PRN PRN Reason: Nausea Tamsulosin HCl (Tamsulosin 0.4 Mg Cap.Er) 0.4 mg PO BEDTIME ERICA Tramadol HCl (Tramadol 50 Mg Tab) 50 mg PO Q6H PRN PRN Reason: Pain Zolpidem Tartrate (Zolpidem 5 Mg Tab) 5 mg PO BEDTIME PRN PRN Reason: Sleep Assessment/Plan Comment:: Patient will be direct admit for swing bed admission for strengthening. Will consult with physical therapy. Dressing changes to be done daily. See orders for complete details.
[2021-01-01] MEDS: Heparin Sodium 5,000 Units/ML Vial SUBCUT SCH (17:16)
[2021-01-01] MEDS ORDERED: Glucagon,Human Recombinant 1 MG Vial IM PRN (17:23)
[2021-01-01] MEDS ORDERED: 50% Dextrose in Water 50 ML Syringe IVPUSH PRN (17:23)
[2021-01-01] MEDS ORDERED: Non-Formulary Medication 1 Each (Insulin Aspart [Novolog] 100 UNIT/ML Pen) SQ SCH (17:30)
[2021-01-01] MEDS: Insulin Lispro 100 Units/ML 3 ML Vial SUBCUT SCH (18:17)
[2021-01-01] MEDS: oxyCODONE 5 MG Tab PO PRN (18:17)
[2021-01-01] MEDS: Amoxicillin/Clavulanate K 875-125 MG Tab PO SCH (18:18)
[2021-01-01] MEDS: Tamsulosin 0.4 MG Cap.ER PO SCH (19:30)
[2021-01-01] MEDS: Fluconazole 100 MG Tab PO SCH (19:30)
[2021-01-02] MEDS: Heparin Sodium 5,000 Units/ML Vial SUBCUT SCH ×4 (00:12→23:55)
[2021-01-02] MEDS: oxyCODONE 5 MG Tab PO PRN ×2 (05:35→16:29)
[2021-01-02] MEDS: Pantoprazole 40 MG Tab.CR PO SCH (07:15)
[2021-01-02] MEDS: Cholecalciferol (Vitamin D3) 25 MCG Tab PO SCH (07:43)
[2021-01-02] MEDS: Nicotine 21 MG/24 Hr Patch TRDERM SCH (07:43)
[2021-01-02] MEDS: Metoprolol Succinate 100 MG Tab.ER PO SCH (08:07)
[2021-01-02] MEDS: Amoxicillin/Clavulanate K 875-125 MG Tab PO SCH ×2 (08:11→16:29)
[2021-01-02] MEDS: Insulin Lispro 100 Units/ML 3 ML Vial SUBCUT SCH ×4 (08:21→18:01)
[2021-01-02] MEDS: DRONABINOL 5 MG PO SCH (18:01)
[2021-01-02] MEDS: Tamsulosin 0.4 MG Cap.ER PO SCH (19:41)
[2021-01-02] MEDS: Fluconazole 100 MG Tab PO SCH (19:41)
[2021-01-03] MEDS: Pantoprazole 40 MG Tab.CR PO SCH (06:19)
[2021-01-03] MEDS: Cholecalciferol (Vitamin D3) 25 MCG Tab PO SCH (07:52)
[2021-01-03] MEDS: DRONABINOL 5 MG PO SCH ×2 (07:52→16:52)
[2021-01-03] MEDS: Nicotine 21 MG/24 Hr Patch TRDERM SCH (07:53)
[2021-01-03] MEDS: Heparin Sodium 5,000 Units/ML Vial SUBCUT SCH ×3 (07:53→23:54)
[2021-01-03] MEDS: Amoxicillin/Clavulanate K 875-125 MG Tab PO SCH ×2 (07:53→16:52)
[2021-01-03] MEDS: Insulin Lispro 100 Units/ML 3 ML Vial SUBCUT SCH ×3 (08:06→17:55)
[2021-01-03] MEDS: Metoprolol Succinate 100 MG Tab.ER PO SCH (08:06)
[2021-01-03] MEDS: oxyCODONE 5 MG Tab PO PRN ×2 (09:25→19:39)
[2021-01-03] MEDS: Fluconazole 100 MG Tab PO SCH (19:36)
[2021-01-03] MEDS: Tamsulosin 0.4 MG Cap.ER PO SCH (19:36)
[2021-01-04] MEDS: Pantoprazole 40 MG Tab.CR PO SCH (06:32)
[2021-01-04] MEDS: Heparin Sodium 5,000 Units/ML Vial SUBCUT SCH ×2 (07:19→15:56)
[2021-01-04] MEDS: Amoxicillin/Clavulanate K 875-125 MG Tab PO SCH ×2 (07:19→17:29)
[2021-01-04] MEDS: Cholecalciferol (Vitamin D3) 25 MCG Tab PO SCH (07:19)
[2021-01-04] MEDS: DRONABINOL 5 MG PO SCH ×2 (07:19→17:29)
[2021-01-04] MEDS: Metoprolol Succinate 100 MG Tab.ER PO SCH (07:19)
[2021-01-04] MEDS: Nicotine 21 MG/24 Hr Patch TRDERM SCH (07:20)
[2021-01-04] MEDS: Insulin Lispro 100 Units/ML 3 ML Vial SUBCUT SCH ×3 (09:18→17:29)
[2021-01-04] MEDS: oxyCODONE 5 MG Tab PO PRN (18:50)
[2021-01-04] MEDS: Tamsulosin 0.4 MG Cap.ER PO SCH (19:38)
[2021-01-04] MEDS: Fluconazole 100 MG Tab PO SCH (19:38)
[2021-01-05] MEDS: Heparin Sodium 5,000 Units/ML Vial SUBCUT SCH ×3 (00:34→16:00)
[2021-01-05] MEDS: Pantoprazole 40 MG Tab.CR PO SCH (06:55)
[2021-01-05] MEDS: DRONABINOL 5 MG PO SCH ×2 (06:55→17:14)
[2021-01-05] MEDS: Nicotine 21 MG/24 Hr Patch TRDERM SCH (08:10)
[2021-01-05] MEDS: Metoprolol Succinate 100 MG Tab.ER PO SCH (08:12)
[2021-01-05] MEDS: Cholecalciferol (Vitamin D3) 25 MCG Tab PO SCH (08:13)
[2021-01-05] MEDS: Amoxicillin/Clavulanate K 875-125 MG Tab PO SCH ×2 (08:13→17:14)
[2021-01-05] MEDS: Insulin Lispro 100 Units/ML 3 ML Vial SUBCUT SCH ×2 (08:14→17:16)
[2021-01-05] MEDS ORDERED: Magnesium Sulfate/Water 2 GM in Premix Bag 1 BAG IV ONE (16:59)
--- NOTE | 2021-01-05 17:09 | PCM.PN ---
- General Info Date of Service: 01/05/21 Admission Dx/Problem (Free Text): Admission Diagnosis/Problem Admission Diagnosis/Problem Pancreaticoduodenectomy Subjective Update: Buck is a 50 yo male who was admitted to [facility] for strengthening. He underwent a whipple procedure on the 19 of November. Post operatively he had complications to include respiratory failure, bacteremia with colonization of ascitic fluid. Underwent paracentesis on the 31 of December prior to discharge. He had underwent blood transfusion X 3 units on the 22 of November d/t hemoglobin less than 5. He was on oral antibiotics up to discharge as well(Unasyn/Micafungin). On discharge his hemoglobin was 8.4. He states he is feeling okay. Has been sleeping a lot. Denies any discomfort presently. States he did have some abdominal discomfort yesterday. Labs were drawn yesterday. He denies any discomfort today. - Review of Systems General: Reports: Weakness, Fatigue, Appetite. Denies: Fever HEENT: Reports: No Symptoms Pulmonary: Denies: Shortness of Breath Cardiovascular: Reports: No Symptoms Gastrointestinal: Reports: No Symptoms Genitourinary: Reports: No Symptoms Musculoskeletal: Reports: No Symptoms Skin: Reports: No Symptoms Neurological: Reports: No Symptoms - Patient Data Vitals - Most Recent: Last Vital Signs Temp 99.6 F 01/05/21 08:00 Pulse 95 01/05/21 08:12 Resp 16 01/05/21 08:00 BP 146/99 H 01/05/21 08:12 Pulse Ox 96 01/05/21 08:00 Weight - Most Recent: 140 lb 6.4 oz Lab Results Last 24 Hours: Laboratory Results - last 24 hr 01/04/21 01/05/21 01/05/21 Range/Units 21:35 05:11 05:11 WBC 9.8 (4.0-11.0) 10^3/uL RBC 2.74 L (4.50-6.00) x10^6/uL Hgb 7.7 L* (14.0-18.0) g/dL Hct 25.2 L (42.0-52.0) % MCV 92.0 (83.0-97.0) fL MCH 28.1 (27.0-32.0) pg MCHC 30.6 L (32.0-36.0) g/dL RDW Coeff of Edilia 17.4 H (11.0-15.0) % Plt Count 363 (150-400) 10^3/uL Immature Gran % (Auto) 0.2 (0.0-4.9) % Neut % (Auto) 80.5 H (41-71) % Lymph % (Auto) 13.5 L (24-44) % [place] % (Auto) 5.5 (0-10) % Eos % (Auto) 0.1 (0-6) % Baso % (Auto) 0.2 (0-1) % Neut # (Auto) 7.86 (1.80-8.00) x10^3/uL Lymph # (Auto) 1.32 (0.60-5.00) 10^3/uL [place] # (Auto) 0.54 (0.00-1.50) 10^3/uL Eos # (Auto) 0.01 (0.00-1.50) 10^3/uL Baso # (Auto) 0.02 (0.00-0.50) 10^3/uL Immature Gran # (Auto) 0.02 (0.00-0.49) 10^3/uL Sodium 140 (136-145) mEq/L Potassium 4.9 (3.5-5.0) mEq/L Chloride 106 (98-106) mEq/L Carbon Dioxide 23 (21-32) mmol/L BUN 34 H (7-18) mg/dL Creatinine 1.8 H (0.7-1.3) mg/dL Est Cr Clr Drug Dosing 43.24 mL/min Estimated GFR (MDRD) 40 L (>=60) mL/min Glucose 96 (75-99) mg/dL POC Glucose 138 H (75-105) mg/dL Calcium 8.1 L (8.4-10.1) mg/dL Magnesium 1.6 L (1.8-2.4) mg/dL Blood Type Gel Antibody Screen Crossmatch 01/05/21 01/05/21 01/05/21 Range/Units 08:43 15:54 16:47 WBC (4.0-11.0) 10^3/uL RBC (4.50-6.00) x10^6/uL Hgb 7.3 L* (14.0-18.0) g/dL Hct 23.6 L (42.0-52.0) % MCV (83.0-97.0) fL MCH (27.0-32.0) pg MCHC (32.0-36.0) g/dL RDW Coeff of Edilia (11.0-15.0) % Plt Count (150-400) 10^3/uL Immature Gran % (Auto) (0.0-4.9) % Neut % (Auto) (41-71) % Lymph % (Auto) (24-44) % [place] % (Auto) (0-10) % Eos % (Auto) (0-6) % Baso % (Auto) (0-1) % Neut # (Auto) (1.80-8.00) x10^3/uL Lymph # (Auto) (0.60-5.00) 10^3/uL [place] # (Auto) (0.00-1.50) 10^3/uL Eos # (Auto) (0.00-1.50) 10^3/uL Baso # (Auto) (0.00-0.50) 10^3/uL Immature Gran # (Auto) (0.00-0.49) 10^3/uL Sodium (136-145) mEq/L Potassium (3.5-5.0) mEq/L Chloride (98-106) mEq/L Carbon Dioxide (21-32) mmol/L BUN (7-18) mg/dL Creatinine (0.7-1.3) mg/dL Est Cr Clr Drug Dosing mL/min Estimated GFR (MDRD) (>=60) mL/min Glucose (75-99) mg/dL POC Glucose (75-105) mg/dL Calcium (8.4-10.1) mg/dL Magnesium (1.8-2.4) mg/dL Blood Type A NEGATIVE Gel Antibody Screen Negative Crossmatch See Detail Danial Results Last 24 Hours: Microbiology 01/05/21 08:43 Occult Blood - Preliminary Stool / Feces Med Orders - Current: Current Medications Acetaminophen (Acetaminophen 325 Mg Tab) 650 mg PO Q4H PRN PRN Reason: Pain Albuterol/Ipratropium (Albuterol/Ipratropium 3.0-0.5 Mg/3 Ml Neb Soln) 3 ml INH QID PRN PRN Reason: Dyspnea Amoxicillin/Clavulanate Potassium (Amoxicillin/Clavulanate K 875-125 Mg Tab) 1 tab PO BIDMEALS [facility] Last Admin: 01/05/21 08:13 Dose: 1 tab Documented by: Calcium Carbonate/Glycine (Calcium Carbonate 500 Mg Tab.Chew) 1,000 mg PO Q4H PRN PRN Reason: Dyspepsia Cholecalciferol (Cholecalciferol (Vitamin D3) 25 Mcg Tab) 50 mcg PO DAILY [facility] Last Admin: 01/05/21 08:13 Dose: 50 mcg Documented by: Dextrose/Water (50% Dextrose In Water 50 Ml Syringe) 50 ml IVPUSH ASDIRECTED PRN PRN Reason: Hypoglycemia Dronabinol (Dronabinol 5 Mg Capsule) 5 mg PO BIDAC [facility] Last Admin: 01/05/21 06:55 Dose: 5 mg Documented by: Fluconazole (Fluconazole 100 Mg Tab) 200 mg PO BEDTIME [facility] Last Admin: 01/04/21 19:38 Dose: 200 mg Documented by: Glucagon (Glucagon,Human Recombinant 1 Mg Vial) 1 mg IM ASDIRECTED PRN PRN Reason: Hypoglycemia Heparin Sodium (Porcine) (Heparin Sodium 5,000 Units/Ml Vial) 5,000 units SUBCUT Q8H [facility] Last Admin: 01/05/21 16:00 Dose: 5,000 units Documented by: Magnesium Sulfate 2 gm/ Premix 50 mls @ 25 mls/hr IV ONETIME ONE Stop: 01/05/21 18:58 Insulin Human Lispro (Insulin Lispro 100 Units/Ml 3 Ml Vial) 0 unit SUBCUT DAILY@0800,1700 [facility]; Protocol Metoprolol Succinate (Metoprolol Succinate 100 Mg Tab.Er) 100 mg PO DAILY [facility] Last Admin: 01/05/21 08:12 Dose: 100 mg Documented by: Nicotine (Nicotine 21 Mg/24 Hr Patch) 21 mg TRDERM DAILY [facility] Last Admin: 01/05/21 08:10 Dose: 21 mg Documented by: Oxycodone HCl (Oxycodone 5 Mg Tab) 5 - 10 mg PO Q4H PRN PRN Reason: Pain Last Admin: 01/04/21 18:50 Dose: 5 mg Documented by: Pantoprazole Sodium (Pantoprazole 40 Mg Tab.Cr) 40 mg PO ACBREAKFAST [facility] Last Admin: 01/05/21 06:55 Dose: 40 mg Documented by: Prochlorperazine Maleate (Prochlorperazine 10 Mg Tab) 10 mg PO Q6H PRN PRN Reason: Nausea Tamsulosin HCl (Tamsulosin 0.4 Mg Cap.Er) 0.4 mg PO BEDTIME [facility] Last Admin: 01/04/21 19:38 Dose: 0.4 mg Documented by: Tramadol HCl (Tramadol 50 Mg Tab) 50 mg PO Q6H PRN PRN Reason: Pain Zolpidem Tartrate (Zolpidem 5 Mg Tab) 5 mg PO BEDTIME PRN PRN Reason: Sleep Discontinued Medications Insulin Human Lispro (Insulin Lispro 100 Units/Ml 3 Ml Vial) 0 unit SUBCUT T IDMEALS [facility]; Protocol Last Admin: 01/02/21 08:28 Dose: Not Given Documented by: Insulin Human Lispro (Insulin Lispro 100 Units/Ml 3 Ml Vial) 0 unit SUBCUT TIDMEALS [facility]; Protocol Last Admin: 01/05/21 08:14 Dose: Not Given Documented by: Dronabinol 5 Mg Cap 0 mg PO BIDAC [facility] Last Admin: 01/02/21 08:14 Dose: 5 mg Documented by: Non-Formulary Medication (Insulin Aspart [Novolog]) 2 - 12 unit SQ TIDMEALS [facility] - Exam General: Alert, Oriented, Cooperative, Other (malnourished) Lungs: Clear to Auscultation, Normal Respiratory Effort Cardiovascular: Regular Rate, Regular Rhythm GI/Abdominal Exam: Normal Bowel Sounds, Distended, Other (acites present). No: Guarding, Rebound, Tender, Mass, Hepatomegaly, Splenomegaly Extremities: Pedal Edema (2+ edema bilaterally) Peripheral Pulses: 2+: Dorsalis Pedis (L), Dorsalis Pedis (R) Skin: Warm, Dry, Intact Wound/Incisions: Healing Well Psy/Mental Status: Alert, Normal Affect, Normal Mood - Patient Data Lab Results Last 24 hrs: Laboratory Results - last 24 hr 01/04/21 01/05/21 01/05/21 Range/Units 21:35 05:11 05:11 WBC 9.8 (4.0-11.0) 10^3/uL RBC 2.74 L (4.50-6.00) x10^6/uL Hgb 7.7 L* (14.0-18.0) g/dL Hct 25.2 L (42.0-52.0) % MCV 92.0 (83.0-97.0) fL MCH 28.1 (27.0-32.0) pg MCHC 30.6 L (32.0-36.0) g/dL RDW Coeff of Edilia 17.4 H (11.0-15.0) % Plt Count 363 (150-400) 10^3/uL Immature Gran % (Auto) 0.2 (0.0-4.9) % Neut % (Auto) 80.5 H (41-71) % Lymph % (Auto) 13.5 L (24-44) % [place] % (Auto) 5.5 (0-10) % Eos % (Auto) 0.1 (0-6) % Baso % (Auto) 0.2 (0-1) % Neut # (Auto) 7.86 (1.80-8.00) x10^3/uL Lymph # (Auto) 1.32 (0.60-5.00) 10^3/uL [place] # (Auto) 0.54 (0.00-1.50) 10^3/uL Eos # (Auto) 0.01 (0.00-1.50) 10^3/uL Baso # (Auto) 0.02 (0.00-0.50) 10^3/uL Immature Gran # (Auto) 0.02 (0.00-0.49) 10^3/uL Sodium 140 (136-145) mEq/L Potassium 4.9 (3.5-5.0) mEq/L Chloride 106 (98-106) mEq/L Carbon Dioxide 23 (21-32) mmol/L BUN 34 H (7-18) mg/dL Creatinine 1.8 H (0.7-1.3) mg/dL Est Cr Clr Drug Dosing 43.24 mL/min Estimated GFR (MDRD) 40 L (>=60) mL/min Glucose 96 (75-99) mg/dL POC Glucose 138 H (75-105) mg/dL Calcium 8.1 L (8.4-10.1) mg/dL Magnesium 1.6 L (1.8-2.4) mg/dL Blood Type Gel Antibody Screen Crossmatch 11/10/1801/05/21 01/05/21 Range/Units 08:43 15:54 16:47 WBC (4.0-11.0) 10^3/uL RBC (4.50-6.00) x10^6/uL Hgb 7.3 L* (14.0-18.0) g/dL Hct 23.6 L (42.0-52.0) % MCV (83.0-97.0) fL MCH (27.0-32.0) pg MCHC (32.0-36.0) g/dL RDW Coeff of Edilia (11.0-15.0) % Plt Count (150-400) 10^3/uL Immature Gran % (Auto) (0.0-4.9) % Neut % (Auto) (41-71) % Lymph % (Auto) (24-44) % [place] % (Auto) (0-10) % Eos % (Auto) (0-6) % Baso % (Auto) (0-1) % Neut # (Auto) (1.80-8.00) x10^3/uL Lymph # (Auto) (0.60-5.00) 10^3/uL [place] # (Auto) (0.00-1.50) 10^3/uL Eos # (Auto) (0.00-1.50) 10^3/uL Baso # (Auto) (0.00-0.50) 10^3/uL Immature Gran # (Auto) (0.00-0.49) 10^3/uL Sodium (136-145) mEq/L Potassium (3.5-5.0) mEq/L Chloride (98-106) mEq/L Carbon Dioxide (21-32) mmol/L BUN (7-18) mg/dL Creatinine (0.7-1.3) mg/dL Est Cr Clr Drug Dosing mL/min Estimated GFR (MDRD) (>=60) mL/min Glucose (75-99) mg/dL POC Glucose (75-105) mg/dL Calcium (8.4-10.1) mg/dL Magnesium (1.8-2.4) mg/dL Blood Type A NEGATIVE Gel Antibody Screen Negative Crossmatch See Detail Result Diagrams: 01/05/21 15:54 01/05/21 05:11 Danial Results Last 24 hrs: Microbiology 01/05/21 08:43 Occult Blood - Preliminary Stool / Feces Sepsis Event Note - Evaluation Sepsis Screening Result: No Definite Risk - Focused Exam Vital Signs: Vital Signs Temp Pulse Pulse Resp BP BP Pulse Ox 01/05/21 08:12 95 146/99 H 01/05/21 08:00 99.6 F 95 16 146/99 H 96 - Problem List & Annotations (1) History of Whipple procedure SNOMED Code(s): 636187656080049 Code(s): Z90.410 - ACQUIRED TOTAL ABSENCE OF PANCREAS; Z90.49 - ACQUIRED ABSENCE OF OTHER SPECIFIED PARTS OF DIGESTIVE TRACT Status: Acute Current Visit: Yes (2) Multi-organ system dysfunction SNOMED Code(s): 31443124 Code(s): DGO6578 - Status: Resolved Current Visit: Yes (3) Chronic kidney disease (CKD) SNOMED Code(s): 074832902 Code(s): N18.9 - CHRONIC KIDNEY DISEASE, UNSPECIFIED Status: Acute Current Visit: Yes (4) Anemia SNOMED Code(s): 223864872 Code(s): D64.9 - ANEMIA, UNSPECIFIED Status: Acute Current Visit: Yes - Problem List Review Problem List Initiated/Reviewed/Updated: Yes - My Orders Last 24 Hours: My Active Orders 01/05/21 08:43 OCCULT BLOOD SCREEN [OP] Routine 01/05/21 09:04 Air Overlay [Pressure Reduction Mattress] [OM.PC] Routine 01/05/21 10:11 Blood Glucose Check, Bedside [RC] BIDMEALS 01/05/21 16:50 Abdomen Pelvis wo Cont [CT] Routine 01/05/21 16:55 FOLIC ACID [CHEM] Routine IRON PNL (FE, TIBC, DEBBIE, %SAT) [REF] Routine VITAMIN B12 [CHEM] Routine 01/05/21 16:59 Magnesium Sulfate/Water [Magnesium Sulfate in Water 2 GM/50 ML] 2 gm Premix Bag 1 bag IV ONETIME 01/05/21 17:00 Insulin Lispro [HumaLOG] 0 unit SUBCUT DAILY@0800,1700 01/06/21 05:11 CBC WITH AUTO DIFF [HEME] Routine CMP [COMPREHENSIVE METABOLIC PN,CMP] [CHEM] AM - Plan Plan:: Patient will be direct admit for swing bed admission for strengthening. Will consult with physical therapy. Dressing changes to be done daily. See orders for complete details. 01/05/2021 Patient had an hemoglobin yesterday of 8.4. It did drop to 7.7 this morning and 7.3 tonight. Patient's vital signs have been stable. He doesn't appear to be in any distress. Occult blood screen was ordered and negative this morning. Patient is currently on Heparin at this time. Will get iron panel, folic acid and vi tamin B12 levels. Patient has been typed and crossed, will repeat Hgb in am and if continues to drop will give 1 unit of pRBC's. Patient's magnesium was 1.6 today, will give 2grams IV today. Saline lock to be placed as well. CT scan of the abdomen/pelvis ordered as we are unable to get ultrasound today. Patient will likely need paracentesis which we will consult with Dr. Sheth in regards upon his arrival.
[2021-01-05] MEDS: Tamsulosin 0.4 MG Cap.ER PO SCH (19:22)
[2021-01-05] MEDS: Fluconazole 100 MG Tab PO SCH (19:22)
[2021-01-05] MEDS: oxyCODONE 5 MG Tab PO PRN (19:22)
[2021-01-06] MEDS: Heparin Sodium 5,000 Units/ML Vial SUBCUT SCH ×3 (00:13→15:59)
[2021-01-06] MEDS: Pantoprazole 40 MG Tab.CR PO SCH (06:47)
[2021-01-06] MEDS: DRONABINOL 5 MG PO SCH ×2 (06:47→17:35)
[2021-01-06] MEDS: oxyCODONE 5 MG Tab PO PRN (07:23)
[2021-01-06] MEDS: Amoxicillin/Clavulanate K 875-125 MG Tab PO SCH ×2 (07:23→17:35)
[2021-01-06] MEDS: Metoprolol Succinate 100 MG Tab.ER PO SCH (07:23)
[2021-01-06] MEDS: Nicotine 21 MG/24 Hr Patch TRDERM SCH (07:24)
[2021-01-06] MEDS: Cholecalciferol (Vitamin D3) 25 MCG Tab PO SCH (07:24)
[2021-01-06] MEDS: Insulin Lispro 100 Units/ML 3 ML Vial SUBCUT SCH ×2 (08:05→17:35)
[2021-01-06] MEDS: Fluconazole 100 MG Tab PO SCH (20:24)
[2021-01-06] MEDS: Tamsulosin 0.4 MG Cap.ER PO SCH (20:24)
[2021-01-07] MEDS: Heparin Sodium 5,000 Units/ML Vial SUBCUT SCH ×3 (00:43→15:45)
[2021-01-07] MEDS: oxyCODONE 5 MG Tab PO PRN (04:10)
[2021-01-07] MEDS: Pantoprazole 40 MG Tab.CR PO SCH (06:25)
[2021-01-07] MEDS: DRONABINOL 5 MG PO SCH ×2 (07:45→16:45)
[2021-01-07] MEDS: Nicotine 21 MG/24 Hr Patch TRDERM SCH (07:45)
[2021-01-07] MEDS: Metoprolol Succinate 100 MG Tab.ER PO SCH (07:45)
[2021-01-07] MEDS: Amoxicillin/Clavulanate K 875-125 MG Tab PO SCH ×2 (07:45→16:45)
[2021-01-07] MEDS: Cholecalciferol (Vitamin D3) 25 MCG Tab PO SCH (07:45)
[2021-01-07] MEDS: Insulin Lispro 100 Units/ML 3 ML Vial SUBCUT SCH ×2 (08:07→17:11)
[2021-01-07] MEDS: Furosemide 40 MG/4 ML VIAL IVPUSH SCH (12:37)
[2021-01-07] MEDS: Ferrous Sulfate 324 MG Tab.EC PO SCH (16:45)
[2021-01-07] MEDS: Tamsulosin 0.4 MG Cap.ER PO SCH (20:04)
[2021-01-07] MEDS: Fluconazole 100 MG Tab PO SCH (20:04)
[2021-01-08] MEDS: Heparin Sodium 5,000 Units/ML Vial SUBCUT SCH ×4 (00:16→23:57)
[2021-01-08] MEDS: Pantoprazole 40 MG Tab.CR PO SCH (06:30)
[2021-01-08] MEDS: DRONABINOL 5 MG PO SCH ×2 (06:30→17:00)
[2021-01-08] MEDS: Insulin Lispro 100 Units/ML 3 ML Vial SUBCUT SCH ×2 (08:00→17:46)
[2021-01-08] MEDS: Nicotine 21 MG/24 Hr Patch TRDERM SCH (08:14)
[2021-01-08] MEDS: Metoprolol Succinate 100 MG Tab.ER PO SCH (08:15)
[2021-01-08] MEDS: Cholecalciferol (Vitamin D3) 25 MCG Tab PO SCH (08:15)
[2021-01-08] MEDS: Ferrous Sulfate 324 MG Tab.EC PO SCH ×2 (08:15→17:42)
[2021-01-08] MEDS: Amoxicillin/Clavulanate K 875-125 MG Tab PO SCH ×2 (08:15→17:44)
[2021-01-08] MEDS: Furosemide 40 MG/4 ML VIAL IVPUSH SCH (12:01)
[2021-01-08] MEDS: oxyCODONE 5 MG Tab PO PRN (15:09)
[2021-01-08] MEDS: Tamsulosin 0.4 MG Cap.ER PO SCH (19:27)
[2021-01-08] MEDS: Fluconazole 100 MG Tab PO SCH (19:27)
[2021-01-09] MEDS: DRONABINOL 5 MG PO SCH ×2 (06:34→17:51)
[2021-01-09] MEDS: Pantoprazole 40 MG Tab.CR PO SCH (06:34)
[2021-01-09] MEDS: Insulin Lispro 100 Units/ML 3 ML Vial SUBCUT SCH ×2 (08:12→17:51)
[2021-01-09] MEDS: Nicotine 21 MG/24 Hr Patch TRDERM SCH (08:22)
[2021-01-09] MEDS: Metoprolol Succinate 100 MG Tab.ER PO SCH (08:23)
[2021-01-09] MEDS: Amoxicillin/Clavulanate K 875-125 MG Tab PO SCH ×2 (08:23→17:51)
[2021-01-09] MEDS: Heparin Sodium 5,000 Units/ML Vial SUBCUT SCH ×2 (08:23→15:10)
[2021-01-09] MEDS: Cholecalciferol (Vitamin D3) 25 MCG Tab PO SCH (08:23)
[2021-01-09] MEDS: Ferrous Sulfate 324 MG Tab.EC PO SCH ×2 (08:24→17:51)
[2021-01-09] MEDS: CREON 6000 UNIT PO SCH ×3 (08:27→18:04)
[2021-01-09] MEDS: Furosemide 40 MG Tab PO SCH (12:05)
[2021-01-09] MEDS: oxyCODONE 5 MG Tab PO PRN (15:10)
[2021-01-09] MEDS: Fluconazole 100 MG Tab PO SCH (19:16)
[2021-01-09] MEDS: Tamsulosin 0.4 MG Cap.ER PO SCH (19:17)
[2021-01-10] MEDS: Heparin Sodium 5,000 Units/ML Vial SUBCUT SCH ×3 (00:04→16:00)
[2021-01-10] MEDS: Pantoprazole 40 MG Tab.CR PO SCH (06:58)
[2021-01-10] MEDS: oxyCODONE 5 MG Tab PO PRN ×2 (07:30→19:21)
[2021-01-10] MEDS: DRONABINOL 5 MG PO SCH ×2 (07:31→16:58)
[2021-01-10] MEDS: Nicotine 21 MG/24 Hr Patch TRDERM SCH (07:34)
[2021-01-10] MEDS: Ferrous Sulfate 324 MG Tab.EC PO SCH ×2 (07:35→17:26)
[2021-01-10] MEDS: Cholecalciferol (Vitamin D3) 25 MCG Tab PO SCH (07:35)
[2021-01-10] MEDS: Furosemide 40 MG Tab PO SCH (07:35)
[2021-01-10] MEDS: Metoprolol Succinate 100 MG Tab.ER PO SCH (07:35)
[2021-01-10] MEDS: Amoxicillin/Clavulanate K 875-125 MG Tab PO SCH ×2 (07:35→17:26)
[2021-01-10] MEDS: Insulin Lispro 100 Units/ML 3 ML Vial SUBCUT SCH ×2 (07:38→17:27)
--- NOTE | 2021-01-10 08:20 | PN ---
DATE: 01/09/2021 S: Buck is seen in swing bed. He has been having issues with ascites and edema. These, however, are markedly improved from what he had prior. He is status post a Whipple procedure for pancreatic cancer, and he did have, I believe, a paracentesis prior to his leaving their facility. He has been on Lasix via [place] over the last 4 or 5 days, and he has had improvement. He still has some abdominal distention from his ascites and some peripheral edema, but overall stable to improving. His weights are down about 3 pounds. O: GENERAL: He is very gaunt, pleasant, and cooperative. HEENT: Grossly benign. NECK: Veins are flat. LUNGS: Sounds are diminished, but clear. CARDIAC: Tones are regular. ABDOMEN: Flat. He is very thin and cachectic, and he definitely has ascites present. Fluid wave easily felt. EXTREMITIES: Lower extremities right now have 1 to 1+ edema below the knees and somewhat in the thighs. ASSESSMENT: 1. PANCREATIC CANCER, STATUS POST WHIPPLE PROCEDURE. 2. APPARENT ASCITIC FLUID INFECTION, STATUS POST PARACENTESIS. 3. HYPERTENSION. 4. CHRONIC NICOTINE ADDICTION. P: We will switch him off the IV Lasix over to oral Lasix this upcoming Tuesday. I will do repeat lab work on him. He is remaining on Augmentin due to his ascitic fluid infection that was present at the time of his tap, and we will continue to monitor closely. PT to continue aggressive therapy. ZITA/HARRIS /[id number]
[2021-01-10] MEDS: CREON 6000 UNIT PO SCH ×3 (08:50→17:26)
[2021-01-10] MEDS: Tamsulosin 0.4 MG Cap.ER PO SCH (19:20)
[2021-01-10] MEDS: Fluconazole 100 MG Tab PO SCH (19:20)
[2021-01-11] MEDS: Heparin Sodium 5,000 Units/ML Vial SUBCUT SCH ×3 (00:08→16:07)
[2021-01-11] MEDS: Pantoprazole 40 MG Tab.CR PO SCH (07:15)
[2021-01-11] MEDS: DRONABINOL 5 MG PO SCH ×2 (07:15→16:59)
[2021-01-11] MEDS: oxyCODONE 5 MG Tab PO PRN ×2 (07:50→14:09)
[2021-01-11] MEDS: Nicotine 21 MG/24 Hr Patch TRDERM SCH (07:55)
[2021-01-11] MEDS: Cholecalciferol (Vitamin D3) 25 MCG Tab PO SCH (07:56)
[2021-01-11] MEDS: Ferrous Sulfate 324 MG Tab.EC PO SCH ×2 (07:56→17:18)
[2021-01-11] MEDS: CREON 6000 UNIT PO SCH ×3 (07:56→17:18)
[2021-01-11] MEDS: Amoxicillin/Clavulanate K 875-125 MG Tab PO SCH ×2 (07:56→17:18)
[2021-01-11] MEDS: Furosemide 40 MG Tab PO SCH (07:57)
[2021-01-11] MEDS: Metoprolol Succinate 100 MG Tab.ER PO SCH (07:57)
[2021-01-11] MEDS: Insulin Lispro 100 Units/ML 3 ML Vial SUBCUT SCH ×2 (07:58→17:04)
[2021-01-11] MEDS: Fluconazole 100 MG Tab PO SCH (19:16)
[2021-01-11] MEDS: Tamsulosin 0.4 MG Cap.ER PO SCH (19:16)
[2021-01-12] MEDS: Heparin Sodium 5,000 Units/ML Vial SUBCUT SCH ×4 (00:12→23:21)
[2021-01-12] MEDS: DRONABINOL 5 MG PO SCH ×2 (06:54→17:36)
[2021-01-12] MEDS: Pantoprazole 40 MG Tab.CR PO SCH (06:54)
[2021-01-12] MEDS: Insulin Lispro 100 Units/ML 3 ML Vial SUBCUT SCH ×2 (07:42→17:37)
[2021-01-12] MEDS: Ferrous Sulfate 324 MG Tab.EC PO SCH ×2 (07:43→17:36)
[2021-01-12] MEDS: Amoxicillin/Clavulanate K 875-125 MG Tab PO SCH ×2 (07:43→17:36)
[2021-01-12] MEDS: Metoprolol Succinate 100 MG Tab.ER PO SCH (07:44)
[2021-01-12] MEDS: Cholecalciferol (Vitamin D3) 25 MCG Tab PO SCH (07:45)
[2021-01-12] MEDS: Furosemide 40 MG Tab PO SCH (07:46)
[2021-01-12] MEDS: Nicotine 21 MG/24 Hr Patch TRDERM SCH (07:49)
[2021-01-12] MEDS: CREON 6000 UNIT PO SCH ×3 (07:52→17:35)
[2021-01-12] MEDS: oxyCODONE 5 MG Tab PO PRN (19:34)
[2021-01-12] MEDS: Fluconazole 100 MG Tab PO SCH (19:34)
[2021-01-12] MEDS: Tamsulosin 0.4 MG Cap.ER PO SCH (19:35)
[2021-01-13] MEDS: Pantoprazole 40 MG Tab.CR PO SCH (06:11)
[2021-01-13] MEDS: oxyCODONE 5 MG Tab PO PRN (06:16)
[2021-01-13] MEDS: Nicotine 21 MG/24 Hr Patch TRDERM SCH (07:53)
[2021-01-13] MEDS: DRONABINOL 5 MG PO SCH ×2 (07:54→17:30)
[2021-01-13] MEDS: Amoxicillin/Clavulanate K 875-125 MG Tab PO SCH ×2 (07:55→18:08)
[2021-01-13] MEDS: Furosemide 40 MG Tab PO SCH (07:55)
[2021-01-13] MEDS: Ferrous Sulfate 324 MG Tab.EC PO SCH ×2 (07:55→18:09)
[2021-01-13] MEDS: Cholecalciferol (Vitamin D3) 25 MCG Tab PO SCH (07:56)
[2021-01-13] MEDS: Heparin Sodium 5,000 Units/ML Vial SUBCUT SCH ×2 (07:56→16:19)
[2021-01-13] MEDS: Metoprolol Succinate 100 MG Tab.ER PO SCH (07:59)
[2021-01-13] MEDS: CREON 6000 UNIT PO SCH ×3 (08:51→18:08)
[2021-01-13] MEDS: Insulin Lispro 100 Units/ML 3 ML Vial SUBCUT SCH ×2 (08:53→18:10)
[2021-01-13] MEDS: Tamsulosin 0.4 MG Cap.ER PO SCH (20:52)
[2021-01-13] MEDS: Fluconazole 100 MG Tab PO SCH (20:53)
[2021-01-14] MEDS: Heparin Sodium 5,000 Units/ML Vial SUBCUT SCH ×4 (00:01→23:53)
[2021-01-14] MEDS: DRONABINOL 5 MG PO SCH ×2 (06:46→17:03)
[2021-01-14] MEDS: Pantoprazole 40 MG Tab.CR PO SCH (06:46)
[2021-01-14] MEDS: Nicotine 21 MG/24 Hr Patch TRDERM SCH (08:27)
[2021-01-14] MEDS: Cholecalciferol (Vitamin D3) 25 MCG Tab PO SCH (08:31)
[2021-01-14] MEDS: Furosemide 40 MG Tab PO SCH (08:31)
[2021-01-14] MEDS: Ferrous Sulfate 324 MG Tab.EC PO SCH ×2 (08:31→17:03)
[2021-01-14] MEDS: Metoprolol Succinate 100 MG Tab.ER PO SCH (08:31)
[2021-01-14] MEDS: Amoxicillin/Clavulanate K 875-125 MG Tab PO SCH ×2 (08:31→17:03)
[2021-01-14] MEDS: CREON 6000 UNIT PO SCH ×3 (08:33→17:42)
[2021-01-14] MEDS: Insulin Lispro 100 Units/ML 3 ML Vial SUBCUT SCH ×2 (08:33→17:40)
[2021-01-14] MEDS: Fluconazole 100 MG Tab PO SCH (19:29)
[2021-01-14] MEDS: Tamsulosin 0.4 MG Cap.ER PO SCH (19:29)
[2021-01-14] MEDS: oxyCODONE 5 MG Tab PO PRN (19:48)
[2021-01-15] MEDS: DRONABINOL 5 MG PO SCH ×2 (06:43→16:58)
[2021-01-15] MEDS: Pantoprazole 40 MG Tab.CR PO SCH (06:43)
[2021-01-15] MEDS: Heparin Sodium 5,000 Units/ML Vial SUBCUT SCH ×2 (08:33→15:57)
[2021-01-15] MEDS: Ferrous Sulfate 324 MG Tab.EC PO SCH ×2 (08:34→16:59)
[2021-01-15] MEDS: Metoprolol Succinate 100 MG Tab.ER PO SCH (08:34)
[2021-01-15] MEDS: Cholecalciferol (Vitamin D3) 25 MCG Tab PO SCH (08:34)
[2021-01-15] MEDS: Furosemide 40 MG Tab PO SCH (08:34)
[2021-01-15] MEDS: Insulin Lispro 100 Units/ML 3 ML Vial SUBCUT SCH ×2 (08:35→16:59)
[2021-01-15] MEDS: Nicotine 21 MG/24 Hr Patch TRDERM SCH (08:35)
[2021-01-15] MEDS: CREON 6000 UNIT PO SCH ×3 (08:38→17:00)
[2021-01-15] MEDS: Fluconazole 100 MG Tab PO SCH (19:51)
[2021-01-15] MEDS: Tamsulosin 0.4 MG Cap.ER PO SCH (19:52)
[2021-01-15] MEDS: oxyCODONE 5 MG Tab PO PRN (20:53)
[2021-01-16] MEDS: Heparin Sodium 5,000 Units/ML Vial SUBCUT SCH ×3 (00:01→16:52)
[2021-01-16] MEDS: Cholecalciferol (Vitamin D3) 25 MCG Tab PO SCH (08:27)
[2021-01-16] MEDS: Metoprolol Succinate 100 MG Tab.ER PO SCH (08:27)
[2021-01-16] MEDS: Furosemide 40 MG Tab PO SCH (08:27)
[2021-01-16] MEDS: Ferrous Sulfate 324 MG Tab.EC PO SCH ×2 (08:27→16:52)
[2021-01-16] MEDS: Pantoprazole 40 MG Tab.CR PO SCH (08:28)
[2021-01-16] MEDS: DRONABINOL 5 MG PO SCH ×2 (08:28→16:52)
[2021-01-16] MEDS: Nicotine 21 MG/24 Hr Patch TRDERM SCH (08:28)
[2021-01-16] MEDS: CREON 6000 UNIT PO SCH ×3 (08:29→16:53)
[2021-01-16] MEDS: Insulin Lispro 100 Units/ML 3 ML Vial SUBCUT SCH ×2 (08:30→16:58)
[2021-01-16] MEDS: Tamsulosin 0.4 MG Cap.ER PO SCH (21:42)
[2021-01-16] MEDS: Fluconazole 100 MG Tab PO SCH (21:42)
[2021-01-17] MEDS: Heparin Sodium 5,000 Units/ML Vial SUBCUT SCH ×4 (00:12→23:56)
[2021-01-17] MEDS: DRONABINOL 5 MG PO SCH ×2 (06:34→17:08)
[2021-01-17] MEDS: Pantoprazole 40 MG Tab.CR PO SCH (06:34)
[2021-01-17] MEDS: Metoprolol Succinate 100 MG Tab.ER PO SCH (07:29)
[2021-01-17] MEDS: Furosemide 40 MG Tab PO SCH (07:29)
[2021-01-17] MEDS: Nicotine 21 MG/24 Hr Patch TRDERM SCH (07:29)
[2021-01-17] MEDS: Ferrous Sulfate 324 MG Tab.EC PO SCH ×2 (07:30→17:09)
[2021-01-17] MEDS: Cholecalciferol (Vitamin D3) 25 MCG Tab PO SCH (07:30)
[2021-01-17] MEDS: CREON 6000 UNIT PO SCH ×3 (07:31→18:08)
[2021-01-17] MEDS: Insulin Lispro 100 Units/ML 3 ML Vial SUBCUT SCH ×2 (08:18→18:07)
[2021-01-17] MEDS: Fluconazole 100 MG Tab PO SCH (19:37)
[2021-01-17] MEDS: Tamsulosin 0.4 MG Cap.ER PO SCH (19:37)
[2021-01-18] MEDS: DRONABINOL 5 MG PO SCH ×2 (06:41→16:49)
[2021-01-18] MEDS: Pantoprazole 40 MG Tab.CR PO SCH (06:41)
[2021-01-18] MEDS: Heparin Sodium 5,000 Units/ML Vial SUBCUT SCH ×2 (07:33→16:16)
[2021-01-18] MEDS: Nicotine 21 MG/24 Hr Patch TRDERM SCH (07:33)
[2021-01-18] MEDS: Cholecalciferol (Vitamin D3) 25 MCG Tab PO SCH (07:34)
[2021-01-18] MEDS: Ferrous Sulfate 324 MG Tab.EC PO SCH ×2 (07:34→16:49)
[2021-01-18] MEDS: Metoprolol Succinate 100 MG Tab.ER PO SCH (07:34)
[2021-01-18] MEDS: Furosemide 40 MG Tab PO SCH (07:34)
[2021-01-18] MEDS: CREON 6000 UNIT PO SCH ×3 (07:35→16:50)
[2021-01-18] MEDS: Insulin Lispro 100 Units/ML 3 ML Vial SUBCUT SCH ×2 (09:09→17:27)
[2021-01-18] MEDS: Fluconazole 100 MG Tab PO SCH (20:10)
[2021-01-18] MEDS: Tamsulosin 0.4 MG Cap.ER PO SCH (20:10)
[2021-01-19] MEDS: Heparin Sodium 5,000 Units/ML Vial SUBCUT SCH ×3 (00:01→15:00)
[2021-01-19] MEDS: Pantoprazole 40 MG Tab.CR PO SCH (06:24)
[2021-01-19] MEDS: DRONABINOL 5 MG PO SCH ×2 (06:30→17:23)
[2021-01-19] MEDS: Cholecalciferol (Vitamin D3) 25 MCG Tab PO SCH (07:29)
[2021-01-19] MEDS: Ferrous Sulfate 324 MG Tab.EC PO SCH ×2 (07:29→17:23)
[2021-01-19] MEDS: Nicotine 21 MG/24 Hr Patch TRDERM SCH (07:29)
[2021-01-19] MEDS: Furosemide 40 MG Tab PO SCH (07:29)
[2021-01-19] MEDS: Metoprolol Succinate 100 MG Tab.ER PO SCH (07:30)
[2021-01-19] MEDS: CREON 6000 UNIT PO SCH ×3 (07:30→17:37)
[2021-01-19] MEDS: Insulin Lispro 100 Units/ML 3 ML Vial SUBCUT SCH ×2 (07:35→17:23)
[2021-01-19] MEDS ORDERED: Magnesium Sulfate/Water 2 GM in Premix Bag 1 BAG IV ONE (15:00)
[2021-01-19] MEDS: Acetaminophen 325 MG Tab PO PRN (15:03)
[2021-01-19] MEDS: Potassium Chloride 10 MEQ Tab.ER PO SCH (17:23)
[2021-01-19] MEDS: Fluconazole 100 MG Tab PO SCH (19:30)
[2021-01-19] MEDS: Tamsulosin 0.4 MG Cap.ER PO SCH (19:31)
[2021-01-20] MEDS: Heparin Sodium 5,000 Units/ML Vial SUBCUT SCH ×4 (00:23→23:54)
[2021-01-20] MEDS: Pantoprazole 40 MG Tab.CR PO SCH (06:03)
[2021-01-20] MEDS: DRONABINOL 5 MG PO SCH ×2 (07:48→17:07)
[2021-01-20] MEDS: Magnesium Chloride 64 MG Tab.ER PO SCH (07:48)
[2021-01-20] MEDS: Potassium Chloride 10 MEQ Tab.ER PO SCH ×2 (07:48→17:07)
[2021-01-20] MEDS: Ferrous Sulfate 324 MG Tab.EC PO SCH ×2 (07:49→17:07)
[2021-01-20] MEDS: Furosemide 40 MG Tab PO SCH (07:49)
[2021-01-20] MEDS: Cholecalciferol (Vitamin D3) 25 MCG Tab PO SCH (07:49)
[2021-01-20] MEDS: Nicotine 21 MG/24 Hr Patch TRDERM SCH (07:51)
[2021-01-20] MEDS: CREON 6000 UNIT PO SCH ×3 (07:53→17:07)
[2021-01-20] MEDS: Metoprolol Succinate 100 MG Tab.ER PO SCH (08:01)
[2021-01-20] MEDS: Insulin Lispro 100 Units/ML 3 ML Vial SUBCUT SCH ×2 (08:09→17:34)
[2021-01-20] MEDS: Fluconazole 100 MG Tab PO SCH (20:06)
[2021-01-20] MEDS: Tamsulosin 0.4 MG Cap.ER PO SCH (20:06)
[2021-01-21] MEDS: Pantoprazole 40 MG Tab.CR PO SCH (06:02)
[2021-01-21] MEDS: DRONABINOL 5 MG PO SCH ×2 (06:51→16:32)
[2021-01-21] MEDS: Potassium Chloride 10 MEQ Tab.ER PO SCH ×2 (07:16→16:32)
[2021-01-21] MEDS: Nicotine 21 MG/24 Hr Patch TRDERM SCH (07:16)
[2021-01-21] MEDS: Ferrous Sulfate 324 MG Tab.EC PO SCH ×2 (07:16→16:32)
[2021-01-21] MEDS: Cholecalciferol (Vitamin D3) 25 MCG Tab PO SCH (07:16)
[2021-01-21] MEDS: Furosemide 40 MG Tab PO SCH (07:16)
[2021-01-21] MEDS: Magnesium Chloride 64 MG Tab.ER PO SCH (07:16)
[2021-01-21] MEDS: Metoprolol Succinate 100 MG Tab.ER PO SCH (07:16)
[2021-01-21] MEDS: CREON 6000 UNIT PO SCH ×3 (07:17→16:33)
[2021-01-21] MEDS: Heparin Sodium 5,000 Units/ML Vial SUBCUT SCH ×2 (07:18→15:53)
[2021-01-21] MEDS: Insulin Lispro 100 Units/ML 3 ML Vial SUBCUT SCH ×2 (08:29→17:45)
[2021-01-21] MEDS: oxyCODONE 5 MG Tab PO PRN (15:58)
[2021-01-21] MEDS: Tamsulosin 0.4 MG Cap.ER PO SCH (20:01)
[2021-01-21] MEDS: Fluconazole 100 MG Tab PO SCH (20:01)
[2021-01-22] MEDS: Heparin Sodium 5,000 Units/ML Vial SUBCUT SCH ×3 (00:35→15:50)
[2021-01-22] MEDS: DRONABINOL 5 MG PO SCH ×2 (07:45→17:12)
[2021-01-22] MEDS: Pantoprazole 40 MG Tab.CR PO SCH (07:45)
[2021-01-22] MEDS: Nicotine 21 MG/24 Hr Patch TRDERM SCH (07:50)
[2021-01-22] MEDS: Cholecalciferol (Vitamin D3) 25 MCG Tab PO SCH (07:53)
[2021-01-22] MEDS: Potassium Chloride 10 MEQ Tab.ER PO SCH ×2 (07:53→17:12)
[2021-01-22] MEDS: Furosemide 40 MG Tab PO SCH (07:54)
[2021-01-22] MEDS: Magnesium Chloride 64 MG Tab.ER PO SCH (07:54)
[2021-01-22] MEDS: Metoprolol Succinate 100 MG Tab.ER PO SCH (07:54)
[2021-01-22] MEDS: Ferrous Sulfate 324 MG Tab.EC PO SCH ×2 (07:54→17:12)
[2021-01-22] MEDS: CREON 6000 UNIT PO SCH ×3 (07:55→17:14)
[2021-01-22] MEDS: Insulin Lispro 100 Units/ML 3 ML Vial SUBCUT SCH ×2 (07:56→17:22)
[2021-01-22] MEDS: oxyCODONE 5 MG Tab PO PRN (13:23)
[2021-01-22] MEDS: Tamsulosin 0.4 MG Cap.ER PO SCH (19:42)
[2021-01-22] MEDS: Fluconazole 100 MG Tab PO SCH (19:43)
[2021-01-22] MEDS: Acetaminophen 325 MG Tab PO PRN (19:44)
[2021-01-23] MEDS: Heparin Sodium 5,000 Units/ML Vial SUBCUT SCH ×3 (00:03→16:08)
[2021-01-23] MEDS: Pantoprazole 40 MG Tab.CR PO SCH (07:07)
[2021-01-23] MEDS: DRONABINOL 5 MG PO SCH ×2 (07:07→18:15)
[2021-01-23] MEDS: Nicotine 21 MG/24 Hr Patch TRDERM SCH (07:36)
[2021-01-23] MEDS: Potassium Chloride 10 MEQ Tab.ER PO SCH ×2 (07:37→18:15)
[2021-01-23] MEDS: Metoprolol Succinate 100 MG Tab.ER PO SCH (07:37)
[2021-01-23] MEDS: Furosemide 40 MG Tab PO SCH (07:37)
[2021-01-23] MEDS: Magnesium Chloride 64 MG Tab.ER PO SCH (07:37)
[2021-01-23] MEDS: Cholecalciferol (Vitamin D3) 25 MCG Tab PO SCH (07:37)
[2021-01-23] MEDS: Ferrous Sulfate 324 MG Tab.EC PO SCH ×2 (07:38→18:16)
[2021-01-23] MEDS: CREON 6000 UNIT PO SCH ×3 (07:38→18:21)
[2021-01-23] MEDS: Insulin Lispro 100 Units/ML 3 ML Vial SUBCUT SCH ×2 (07:42→18:09)
[2021-01-23] MEDS: Acetaminophen 325 MG Tab PO PRN (07:43)
[2021-01-23] MEDS: Tamsulosin 0.4 MG Cap.ER PO SCH (19:27)
[2021-01-23] MEDS: Fluconazole 100 MG Tab PO SCH (19:27)
[2021-01-24] MEDS: Heparin Sodium 5,000 Units/ML Vial SUBCUT SCH ×3 (00:20→16:56)
[2021-01-24] MEDS: Pantoprazole 40 MG Tab.CR PO SCH (06:47)
[2021-01-24] MEDS: DRONABINOL 5 MG PO SCH ×2 (06:47→16:56)
[2021-01-24] MEDS: CREON 6000 UNIT PO SCH ×3 (07:49→17:19)
[2021-01-24] MEDS: Cholecalciferol (Vitamin D3) 25 MCG Tab PO SCH (07:50)
[2021-01-24] MEDS: Magnesium Chloride 64 MG Tab.ER PO SCH (07:50)
[2021-01-24] MEDS: Metoprolol Succinate 100 MG Tab.ER PO SCH (07:51)
[2021-01-24] MEDS: Ferrous Sulfate 324 MG Tab.EC PO SCH ×2 (07:51→16:56)
[2021-01-24] MEDS: Furosemide 40 MG Tab PO SCH (07:52)
[2021-01-24] MEDS: Potassium Chloride 10 MEQ Tab.ER PO SCH ×2 (07:52→16:56)
[2021-01-24] MEDS: Nicotine 21 MG/24 Hr Patch TRDERM SCH (07:53)
[2021-01-24] MEDS: Insulin Lispro 100 Units/ML 3 ML Vial SUBCUT SCH ×2 (07:54→18:15)
[2021-01-24] MEDS: Tamsulosin 0.4 MG Cap.ER PO SCH (20:01)
[2021-01-24] MEDS: Fluconazole 100 MG Tab PO SCH (20:01)
[2021-01-25] MEDS: Heparin Sodium 5,000 Units/ML Vial SUBCUT SCH ×3 (00:30→16:18)
[2021-01-25] MEDS: Metoprolol Succinate 100 MG Tab.ER PO SCH (08:01)
[2021-01-25] MEDS: DRONABINOL 5 MG PO SCH ×2 (08:01→17:43)
[2021-01-25] MEDS: Cholecalciferol (Vitamin D3) 25 MCG Tab PO SCH (08:02)
[2021-01-25] MEDS: Furosemide 40 MG Tab PO SCH (08:03)
[2021-01-25] MEDS: Magnesium Chloride 64 MG Tab.ER PO SCH (08:03)
[2021-01-25] MEDS: Ferrous Sulfate 324 MG Tab.EC PO SCH ×2 (08:03→17:42)
[2021-01-25] MEDS: Pantoprazole 40 MG Tab.CR PO SCH (08:04)
[2021-01-25] MEDS: Potassium Chloride 10 MEQ Tab.ER PO SCH ×2 (08:04→17:43)
[2021-01-25] MEDS: Nicotine 21 MG/24 Hr Patch TRDERM SCH (08:10)
[2021-01-25] MEDS: CREON 6000 UNIT PO SCH ×3 (08:15→17:45)
[2021-01-25] MEDS: Insulin Lispro 100 Units/ML 3 ML Vial SUBCUT SCH ×2 (08:16→17:58)
[2021-01-25] MEDS: Fluconazole 100 MG Tab PO SCH (20:01)
[2021-01-25] MEDS: Tamsulosin 0.4 MG Cap.ER PO SCH (20:01)
[2021-01-26] MEDS: Heparin Sodium 5,000 Units/ML Vial SUBCUT SCH ×3 (00:55→16:08)
[2021-01-26] MEDS: Nicotine 21 MG/24 Hr Patch TRDERM SCH (07:07)
[2021-01-26] MEDS: Magnesium Chloride 64 MG Tab.ER PO SCH (07:11)
[2021-01-26] MEDS: Ferrous Sulfate 324 MG Tab.EC PO SCH ×2 (07:11→17:37)
[2021-01-26] MEDS: Potassium Chloride 10 MEQ Tab.ER PO SCH ×2 (07:11→17:36)
[2021-01-26] MEDS: DRONABINOL 5 MG PO SCH ×2 (07:11→17:36)
[2021-01-26] MEDS: Furosemide 40 MG Tab PO SCH (07:11)
[2021-01-26] MEDS: Metoprolol Succinate 100 MG Tab.ER PO SCH (07:11)
[2021-01-26] MEDS: Pantoprazole 40 MG Tab.CR PO SCH (07:12)
[2021-01-26] MEDS: Cholecalciferol (Vitamin D3) 25 MCG Tab PO SCH (07:12)
[2021-01-26] MEDS: oxyCODONE 5 MG Tab PO PRN (07:33)
[2021-01-26] MEDS: CREON 6000 UNIT PO SCH ×3 (07:40→17:30)
[2021-01-26] MEDS: Insulin Lispro 100 Units/ML 3 ML Vial SUBCUT SCH ×2 (08:11→17:37)
[2021-01-26] MEDS: Fluconazole 100 MG Tab PO SCH (19:37)
[2021-01-26] MEDS: Tamsulosin 0.4 MG Cap.ER PO SCH (19:37)
[2021-01-27] MEDS: Heparin Sodium 5,000 Units/ML Vial SUBCUT SCH ×3 (00:45→16:37)
[2021-01-27] MEDS: Metoprolol Succinate 100 MG Tab.ER PO SCH (07:33)
[2021-01-27] MEDS: Potassium Chloride 10 MEQ Tab.ER PO SCH ×2 (07:34→16:37)
[2021-01-27] MEDS: Furosemide 40 MG Tab PO SCH (07:34)
[2021-01-27] MEDS: Ferrous Sulfate 324 MG Tab.EC PO SCH ×2 (07:34→16:37)
[2021-01-27] MEDS: Cholecalciferol (Vitamin D3) 25 MCG Tab PO SCH (07:34)
[2021-01-27] MEDS: DRONABINOL 5 MG PO SCH ×2 (07:34→16:37)
[2021-01-27] MEDS: Pantoprazole 40 MG Tab.CR PO SCH (07:34)
[2021-01-27] MEDS: Magnesium Chloride 64 MG Tab.ER PO SCH (07:34)
[2021-01-27] MEDS: Nicotine 21 MG/24 Hr Patch TRDERM SCH (07:35)
[2021-01-27] MEDS: CREON 6000 UNIT PO SCH ×3 (07:36→16:38)
[2021-01-27] MEDS: Insulin Lispro 100 Units/ML 3 ML Vial SUBCUT SCH ×2 (07:53→17:16)
[2021-01-27] MEDS: oxyCODONE 5 MG Tab PO PRN (18:32)
[2021-01-27] MEDS: Tamsulosin 0.4 MG Cap.ER PO SCH (19:38)
[2021-01-27] MEDS: Fluconazole 100 MG Tab PO SCH (19:38)
[2021-01-28] MEDS: Heparin Sodium 5,000 Units/ML Vial SUBCUT SCH ×4 (00:30→23:59)
[2021-01-28] MEDS: DRONABINOL 5 MG PO SCH ×2 (06:40→16:53)
[2021-01-28] MEDS: Pantoprazole 40 MG Tab.CR PO SCH (06:40)
[2021-01-28] MEDS: Metoprolol Succinate 100 MG Tab.ER PO SCH (07:34)
[2021-01-28] MEDS: Nicotine 21 MG/24 Hr Patch TRDERM SCH (07:34)
[2021-01-28] MEDS: Ferrous Sulfate 324 MG Tab.EC PO SCH ×2 (07:34→16:53)
[2021-01-28] MEDS: Cholecalciferol (Vitamin D3) 25 MCG Tab PO SCH (07:34)
[2021-01-28] MEDS: Magnesium Chloride 64 MG Tab.ER PO SCH (07:35)
[2021-01-28] MEDS: Furosemide 40 MG Tab PO SCH (07:35)
[2021-01-28] MEDS: CREON 6000 UNIT PO SCH ×3 (07:35→18:12)
[2021-01-28] MEDS: Potassium Chloride 10 MEQ Tab.ER PO SCH ×2 (07:35→16:54)
[2021-01-28] MEDS: Insulin Lispro 100 Units/ML 3 ML Vial SUBCUT SCH ×2 (07:52→17:04)
[2021-01-28] MEDS: Tamsulosin 0.4 MG Cap.ER PO SCH (19:49)
[2021-01-28] MEDS: Fluconazole 100 MG Tab PO SCH (19:49)
[2021-01-29] MEDS: Pantoprazole 40 MG Tab.CR PO SCH (06:37)
[2021-01-29] MEDS: Cholecalciferol (Vitamin D3) 25 MCG Tab PO SCH (08:08)
[2021-01-29] MEDS: Furosemide 40 MG Tab PO SCH (08:08)
[2021-01-29] MEDS: Potassium Chloride 10 MEQ Tab.ER PO SCH ×2 (08:08→17:14)
[2021-01-29] MEDS: Heparin Sodium 5,000 Units/ML Vial SUBCUT SCH ×2 (08:09→17:14)
[2021-01-29] MEDS: Magnesium Chloride 64 MG Tab.ER PO SCH (08:09)
[2021-01-29] MEDS: Nicotine 21 MG/24 Hr Patch TRDERM SCH (08:09)
[2021-01-29] MEDS: Metoprolol Succinate 100 MG Tab.ER PO SCH (08:09)
[2021-01-29] MEDS: Ferrous Sulfate 324 MG Tab.EC PO SCH ×2 (08:09→17:14)
[2021-01-29] MEDS: Insulin Lispro 100 Units/ML 3 ML Vial SUBCUT SCH ×2 (08:10→17:14)
[2021-01-29] MEDS: CREON 6000 UNIT PO SCH ×3 (08:11→17:15)
[2021-01-29] MEDS: DRONABINOL 5 MG PO SCH ×2 (08:13→17:14)
[2021-01-29] MEDS: Tamsulosin 0.4 MG Cap.ER PO SCH (19:31)
[2021-01-30] MEDS: Heparin Sodium 5,000 Units/ML Vial SUBCUT SCH ×3 (00:03→16:06)
[2021-01-30] MEDS: Pantoprazole 40 MG Tab.CR PO SCH (06:54)
[2021-01-30] MEDS: Nicotine 21 MG/24 Hr Patch TRDERM SCH (08:22)
[2021-01-30] MEDS: DRONABINOL 5 MG PO SCH ×2 (08:23→16:32)
[2021-01-30] MEDS: Magnesium Chloride 64 MG Tab.ER PO SCH (08:23)
[2021-01-30] MEDS: Potassium Chloride 10 MEQ Tab.ER PO SCH ×2 (08:23→17:31)
[2021-01-30] MEDS: Furosemide 40 MG Tab PO SCH (08:23)
[2021-01-30] MEDS: Ferrous Sulfate 324 MG Tab.EC PO SCH ×2 (08:23→17:31)
[2021-01-30] MEDS: Cholecalciferol (Vitamin D3) 25 MCG Tab PO SCH (08:24)
[2021-01-30] MEDS: Metoprolol Succinate 100 MG Tab.ER PO SCH (08:25)
[2021-01-30] MEDS: Insulin Lispro 100 Units/ML 3 ML Vial SUBCUT SCH ×2 (08:28→17:31)
[2021-01-30] MEDS: CREON 6000 UNIT PO SCH ×3 (08:28→17:32)
[2021-01-30] MEDS: Prochlorperazine 10 MG Tab PO PRN (16:32)
[2021-01-30] MEDS: oxyCODONE 5 MG Tab PO PRN (16:32)
[2021-01-30] MEDS: Tamsulosin 0.4 MG Cap.ER PO SCH (19:35)
[2021-01-31] MEDS: Heparin Sodium 5,000 Units/ML Vial SUBCUT SCH ×2 (01:00→08:12)
[2021-01-31] MEDS: Pantoprazole 40 MG Tab.CR PO SCH (06:50)
[2021-01-31] MEDS: Nicotine 21 MG/24 Hr Patch TRDERM SCH (08:12)
[2021-01-31] MEDS: CREON 6000 UNIT PO SCH ×2 (08:12→11:56)
[2021-01-31] MEDS: oxyCODONE 5 MG Tab PO PRN (08:13)
[2021-01-31] MEDS: DRONABINOL 5 MG PO SCH (08:13)
[2021-01-31] MEDS: Metoprolol Succinate 100 MG Tab.ER PO SCH (08:13)
[2021-01-31] MEDS: Cholecalciferol (Vitamin D3) 25 MCG Tab PO SCH (08:13)
[2021-01-31] MEDS: Prochlorperazine 10 MG Tab PO PRN (08:13)
[2021-01-31] MEDS: Furosemide 40 MG Tab PO SCH (08:13)
[2021-01-31] MEDS: Potassium Chloride 10 MEQ Tab.ER PO SCH (08:13)
[2021-01-31] MEDS: Ferrous Sulfate 324 MG Tab.EC PO SCH (08:13)
[2021-01-31] MEDS: Magnesium Chloride 64 MG Tab.ER PO SCH (08:13)
[2021-01-31] MEDS: Insulin Lispro 100 Units/ML 3 ML Vial SUBCUT SCH (08:14)
[2021-01-31] MEDS: Acetaminophen 325 MG Tab PO PRN (12:56)
[2021-01-31] MEDS ORDERED: Insulin Regular, Human 100 Units/ML 3 ML Vial IV ONE (14:41)
[2021-01-31] MEDS ORDERED: Calcium Gluconate 10% 1 GM/10 ML SDV IVPUSH ONE (14:41)
[2021-01-31] MEDS ORDERED: Albuterol 0.083% 2.5 MG/3 ML Neb Soln NEB ONE (14:41)
[2021-01-31] MEDS ORDERED: 50% Dextrose in Water 50 ML Syringe IVPUSH PRN (14:41)
[2021-01-31] MEDS ORDERED: Glucagon,Human Recombinant 1 MG Vial IM PRN (14:41)
[2021-01-31] MEDS ORDERED: 50% Dextrose in Water 50 ML Syringe IVPUSH ONE (14:41)
[2021-01-31] MEDS ORDERED: Sodium Chloride 0.9% 1,000 ML IV SCH (14:45)
[2021-01-31] MEDS ORDERED: Sodium Chloride 0.9% 50 ML ONE (15:25)
--- NOTE | 2021-01-31 15:41 | PCM.DCSUM1 ---
Discharge Summary - Hospital Course Free Text/Narrative:: umaireint suddenly developed a fever today while on swingbed unit. He is here recovering after a whipple on 11/20 for pancreatic cancer found during laprascopic cholecystectomy in March of this year. He did have pre operative chemotherapy and margins at surgery were clear with negataive lymph nodes. He went into multi system organ failure and sepsis from ailyn glabrata and streptococcus anginosus. He was treated on Unasyn and micafungin. He did dev elop post operative ascites and possible SBP. He was transferred to our facilty on 01/01. Has been on swingbed for strengthening and maintained on augmentin. Today he had routine cbc for monitoring of his hemoglobin ( 7.7). Normal wbc this am. Around noon he didn't feel well and found to have a fever and I was called to see him. Has been trying to eat, but has lost 40 pounds in the last month. work up today ensued. Brief History: see above, after work up found to have leukocytosis, elevated lactic acid, hyperalemia and abdominal abscess. needs transfer - Discharge Data Discharge Date: 01/31/21 Discharge Disposition: DC/Tfer to Acute Hospital 02 Condition: Critical - Referral to Home Health Primary Care Physician: Ezekiel Sheth MD - Discharge Diagnosis/Problem(s) (1) Fever SNOMED Code(s): 808640086 ICD Code: R50.9 - FEVER, UNSPECIFIED Status: Acute Current Visit: Yes Problem Details: probable due to absdominal abscess, tylenol given (2) Hyperkalemia SNOMED Code(s): 64130477 ICD Code: E87.5 - HYPERKALEMIA Status: Acute Current Visit: Yes Problem Details: new onset, history of CKD, given calcium gluconate one gram, albuterol neb, insulin 10 units, dextrose 50. (3) Anemia SNOMED Code(s): 057321707 ICD Code: D64.9 - ANEMIA, UNSPECIFIED Status: Acute Current Visit: Yes Problem Details: chronically low, at 7.7, last transufsion in [place] a month ago (4) History of Whipple procedure SNOMED Code(s): 482955120084343 ICD Code: Z90.410 - ACQUIRED TOTAL ABSENCE OF PANCREAS; Z90.49 - ACQUIRED ABSENCE OF OTHER SPECIFIED PARTS OF DIGESTIVE TRACT Status: Acute Current Visit: Yes Problem Details: maintaining glucose well. had post operative sepsis, ascites, abdominal abscess (5) Multi-organ system dysfunction SNOMED Code(s): 28690945 ICD Code: [id number] - Status: Resolved Current Visit: Yes Problem Details: sudden elevation of white count from 8 to 14 in 12 hours. lactic acid of 5.1 concern for sepsis with blood cultures pending. Work up negative for source other than abdominal abscess - Patient Summary/Data Consults: Consultations 01/01/21 14:58 PT Evaluation and Treatment [CONS] Routine - Patient Instructions Diet: NPO - Discharge Plan Home Medications: Home Meds Metoprolol Succinate [Toprol XL 50mg] 100 mg PO DAILY 10/21/19 [History] Acetaminophen [Tylenol] 650 mg PO Q4H PRN 01/01/21 [History] Albuterol/Ipratropium [DuoNeb 3.0-0.5 MG/3 ML] 1 inh INH QID PRN 01/01/21 [History] Amoxicillin/Clavulanate K [Augmentin 875-125 MG] 1 tab PO BID 01/01/21 [History] Calcium Carbonate [Tums] 1,000 mg PO Q4H PRN 01/01/21 [History] Cholecalciferol (Vitamin D3) [Vitamin D3] 50 mcg PO DAILY 01/01/21 [History] Heparin Sodium,Porcine/PF [Heparin Sod 5,000 Unit/0.5 ml] 5,000 unit SQ Q8H 01/01/21 [History] Insulin Aspart [NovoLOG] 2 - 12 unit SQ TIDMEALS 01/01/21 [History] Omeprazole 20 mg PO DAILY 01/01/21 [History] Prochlorperazine Maleate [Compazine] 10 mg PO Q6H PRN 01/01/21 [History] Tamsulosin [Flomax] 0.4 mg PO BEDTIME 01/01/21 [History] Voriconazole 200 mg PO BID 01/01/21 [History] Zolpidem [Ambien] 5 mg PO BEDTIME PRN 01/01/21 [History] dronabinoL [Marinol] 5 mg PO BIDAC 01/01/21 [History] oxyCODONE 5 - 10 mg PO Q4H PRN 01/01/21 [History] traMADol [Ultram] 50 mg PO Q6H PRN 01/01/21 [History] Oxygen Therapy Mode: Room Air - Discharge Summary/Plan Comment DC Time >30 min.: No Total # of Minutes for Discharge Time: 25 - General Info Date of Service: 01/31/21 Admission Dx/Problem (Free Text: fever Subjective Update: fever, sepsis , abdominal abscess with need for intentional radiology drainage. discussed with Trev one call at 15:[address] Bey agrees to procedure. Discussed case with hospitalist Dr. Portillo, accepts for transfer. Did take measures to correct potassium. Started unasyn as this is what he was on previously. Also discussed possible TPN due to severe malnutrition Functional Status: Reports: Ambulating, New Symptoms. Denies: Tolerating Diet - Review of Systems General: Reports: Fever, Weakness, Fatigue, Other (lul loss 40 pounds one month. cachexic) HEENT: Reports: No Symptoms Pulmonary: Reports: Shortness of Breath Cardiovascular: Reports: Dyspnea on Exertion Gastrointestinal: Reports: Decreased Appetite Genitourinary: Reports: No Symptoms Musculoskeletal: Reports: No Symptoms Skin: Reports: Other (minmal drainage from surgical incsion) Neurological: Reports: No Symptoms - Patient Data Vitals - Most Recent: Last Vital Signs Temp 37.3 C 01/31/21 15:17 Pulse 86 01/31/21 15:17 Resp 18 01/31/21 15:17 BP 127/59 L 01/31/21 15:17 Pulse Ox 96 01/31/21 15:17 Weight - Most Recent: 39.281 kg Imaging Impressions - Last 24 hrs: chest xray, no acute changes Abdominal ct with limited reading due to lack of IV contrast. cysts in liver and kidneys as previous, loculated collection along th e anterior abdominal wall 14x5 cm , no bowel obstruction. interpreted by radiology Lab Results - Last 24 hrs: Laboratory Results - last 24 hr 01/30/21 01/31/21 01/31/21 Range/Units 16:36 07:51 08:07 WBC 8.4 (4.0-11.0) 10^3/uL RBC 2.81 L (4.50-6.00) x10^6/uL Hgb 7.7 L* (14.0-18.0) g/dL Hct 25.3 L (42.0-52.0) % MCV 90.0 (83.0-97.0) fL MCH 27.4 (27.0-32.0) pg MCHC 30.4 L (32.0-36.0) g/dL RDW Coeff of Edilia 17.1 H (11.0-15.0) % Plt Count 223 (150-400) 10^3/uL Immature Gran % (Auto) 0.2 (0.0-4.9) % Neut % (Auto) 81.3 H (41-71) % Lymph % (Auto) 13.9 L (24-44) % Dane % (Auto) 3.8 (0-10) % Eos % (Auto) 0.6 (0-6) % Baso % (Auto) 0.2 (0-1) % Neut # (Auto) 6.79 (1.80-8.00) x10^3/uL Lymph # (Auto) 1.16 (0.60-5.00) 10^3/uL Dane # (Auto) 0.32 (0.00-1.50) 10^3/uL Eos # (Auto) 0.05 (0.00-1.50) 10^3/uL Baso # (Auto) 0.02 (0.00-0.50) 10^3/uL Immature Gran # (Auto) 0.02 (0.00-0.49) 10^3/uL Sodium (136-145) mEq/L Potassium (3.5-5.0) mEq/L Chloride (98-106) mEq/L Carbon Dioxide (21-32) mmol/L BUN (7-18) mg/dL Creatinine (0.7-1.3) mg/dL Est Cr Clr Drug Dosing mL/min Estimated GFR (MDRD) (>=60) mL/min Glucose (75-99) mg/dL POC Glucose 83 103 (75-105) mg/dL Lactic Acid (0.4-2.0) mmol/L Calcium (8.4-10.1) mg/dL Total Bilirubin (0.0-1.0) mg/dL AST (15-37) U/L ALT (12-78) U/L Alkaline Phosphatase (46-116) U/L C-Reactive Protein (0.2-0.8) mg/dL Total Protein (6.4-8.2) g/dL Albumin (3.4-5.0) g/dL Lipase (73-393) U/L Urine Color (YELLOW) Urine Appearance (CLEAR) Urine pH (4.5-8.0) Ur Specific [place] (1.003-1.020) Urine Protein (NEGATIVE) mg/dL Urine Glucose (UA) (NEGATIVE) mg/dL Urine Ketones (NEGATIVE) mg/dL Urine Occult Blood (NEGATIVE) Urine Nitrite (NEGATIVE) Urine Bilirubin (NEGATIVE) Urine Urobilinogen (0.2-1.0) EU/dL Ur Leukocyte Esterase (NEGATIVE) Urine RBC (0-5) /HPF Urine WBC (0-5) /HPF Urinalysis Comment SARS CoV-2 RNA Rapid LISANDRO (NEGATIVE) 01/31/21 01/31/21 01/31/21 Range/Units 13:05 13:05 13:05 WBC 14.8 H (4.0-11.0) 10^3/uL RBC 3.25 L (4.50-6.00) x10^6/uL Hgb 8.9 L (14.0-18.0) g/dL Hct 29.6 L (42.0-52.0) % MCV 91.1 (83.0-97.0) fL MCH 27.4 (27.0-32.0) pg MCHC 30.1 L (32.0-36.0) g/dL RDW Coeff of Edilia 17.2 H (11.0-15.0) % Plt Count 338 (150-400) 10^3/uL Immature Gran % (Auto) 0.1 (0.0-4.9) % Neut % (Auto) 94.3 H (41-71) % Lymph % (Auto) 4.6 L (24-44) % Dane % (Auto) 0.8 (0-10) % Eos % (Auto) 0.1 (0-6) % Baso % (Auto) 0.1 (0-1) % Neut # (Auto) 13.98 H (1.80-8.00) x10^3/uL Lymph # (Auto) 0.68 (0.60-5.00) 10^3/uL Dane # (Auto) 0.12 (0.00-1.50) 10^3/uL Eos # (Auto) 0.02 (0.00-1.50) 10^3/uL Baso # (Auto) 0.02 (0.00-0.50) 10^3/uL Immature Gran # (Auto) 0.01 (0.00-0.49) 10^3/uL Sodium (136-145) mEq/L Potassium (3.5-5.0) mEq/L Chloride (98-106) mEq/L Carbon Dioxide (21-32) mmol/L BUN (7-18) mg/dL Creatinine (0.7-1.3) mg/dL Est Cr Clr Drug Dosing mL/min Estimated GFR (MDRD) (>=60) mL/min Glucose (75-99) mg/dL POC Glucose (75-105) mg/dL Lactic Acid (0.4-2.0) mmol/L Calcium (8.4-10.1) mg/dL Total Bilirubin (0.0-1.0) mg/dL AST (15-37) U/L ALT (12-78) U/L Alkaline Phosphatase (46-116) U/L C-Reactive Protein (0.2-0.8) mg/dL Total Protein (6.4-8.2) g/dL Albumin (3.4-5.0) g/dL Lipase (73-393) U/L Urine Color Yellow (YELLOW) Urine Appearance Clear (CLEAR) Urine pH 7.0 (4.5-8.0) Ur Specific [place] 1.020 (1.003-1.020) Urine Protein Negative (NEGATIVE) mg/dL Urine Glucose (UA) Negative (NEGATIVE) mg/dL Urine Ketones Negative (NEGATIVE) mg/dL Urine Occult Blood Trace-intact H (NEGATIVE) Urine Nitrite Negative (NEGATIVE) Urine Bilirubin Negative (NEGATIVE) Urine Urobilinogen 0.2 (0.2-1.0) EU/dL Ur Leukocyte Esterase Small H (NEGATIVE) Urine RBC 5-10 H (0-5) /HPF Urine WBC 40-50 H (0-5) /HPF Urinalysis Comment SARS CoV-2 RNA Rapid LISANDRO Negative (NEGATIVE) 01/31/21 01/31/21 Range/Units 13:05 13:37 WBC (4.0-11.0) 10^3/uL RBC (4.50-6.00) x10^6/uL Hgb (14.0-18.0) g/dL Hct (42.0-52.0) % MCV (83.0-97.0) fL MCH (27.0-32.0) pg MCHC (32.0-36.0) g/dL RDW Coeff of Edilia (11.0-15.0) % Plt Count (150-400) 10^3/uL Immature Gran % (Auto) (0.0-4.9) % Neut % (Auto) (41-71) % Lymph % (Auto) (24-44) % Dane % (Auto) (0-10) % Eos % (Auto) (0-6) % Baso % (Auto) (0-1) % Neut # (Auto) (1.80-8.00) x10^3/uL Lymph # (Auto) (0.60-5.00) 10^3/uL Dane # (Auto) (0.00-1.50) 10^3/uL Eos # (Auto) (0.00-1.50) 10^3/uL Baso # (Auto) (0.00-0.50) 10^3/uL Immature Gran # (Auto) (0.00-0.49) 10^3/uL Sodium 135 L (136-145) mEq/L Potassium 5.9 H D (3.5-5.0) mEq/L Chloride 98 (98-106) mEq/L Carbon Dioxide 24 (21-32) mmol/L BUN 36 H (7-18) mg/dL Creatinine 2.5 H (0.7-1.3) mg/dL Est Cr Clr Drug Dosing 18.99 mL/min Estimated GFR (MDRD) 27 L (>=60) mL/min Glucose 133 H (75-99) mg/dL POC Glucose (75-105) mg/dL Lactic Acid 5.1 H (0.4-2.0) mmol/L Calcium 8.6 (8.4-10.1) mg/dL Total Bilirubin 0.3 (0.0-1.0) mg/dL AST 9 L (15-37) U/L ALT 1 L (12-78) U/L Alkaline Phosphatase 136 H (46-116) U/L C-Reactive Protein 9.5 H (0.2-0.8) mg/dL Total Protein 7.4 (6.4-8.2) g/dL Albumin 1.8 L (3.4-5.0) g/dL Lipase 64 L (73-393) U/L Urine Color (YELLOW) Urine Appearance (CLEAR) Urine pH (4.5-8.0) Ur Specific [place] (1.003-1.020) Urine Protein (NEGATIVE) mg/dL Urine Glucose (UA) (NEGATIVE) mg/dL Urine Ketones (NEGATIVE) mg/dL Urine Occult Blood (NEGATIVE) Urine Nitrite (NEGATIVE) Urine Bilirubin (NEGATIVE) Urine Urobilinogen (0.2-1.0) EU/dL Ur Leukocyte Esterase (NEGATIVE) Urine RBC (0-5) /HPF Urine WBC (0-5) /HPF Urinalysis Comment SARS CoV-2 RNA Rapid LISANDRO (NEGATIVE) Med Orders - Current: Current Medications Acetaminophen (Acetaminophen 325 Mg Tab) 650 mg PO Q4H PRN PRN Reason: Pain Last Admin: 01/31/21 12:56 Dose: 650 mg Documented by: Albuterol/Ipratropium (Albuterol/Ipratropium 3.0-0.5 Mg/3 Ml Neb Soln) 3 ml INH QID PRN PRN Reason: Dyspnea Calcium Carbonate/Glycine (Calcium Carbonate 500 Mg Tab.Chew) 1,000 mg PO Q4H PRN PRN Reason: Dyspepsia Cholecalciferol (Cholecalciferol (Vitamin D3) 25 Mcg Tab) 50 mcg PO DAILY [facility] Last Admin: 01/31/21 08:13 Dose: 50 mcg Documented by: Dextrose/Water (50% Dextrose In Water 50 Ml Syringe) 50 ml IVPUSH ASDIRECTED PRN PRN Reason: Hypoglycemia Dronabinol (Dronabinol 5 Mg Capsule) 5 mg PO BIDAC [facility] Last Admin: 01/31/21 08:13 Dose: 5 mg Documented by: Ferrous Sulfate (Ferrous Sulfate 324 Mg Tab.Ec) 324 mg PO BIDMEALS [facility] Last Admin: 01/31/21 08:13 Dose: 324 mg Documented by: Furosemide (Furosemide 40 Mg Tab) 40 mg PO DAILY [facility] Last Admin: 01/31/21 08:13 Dose: 40 mg Documented by: Glucagon (Glucagon,Human Recombinant 1 Mg Vial) 1 mg IM ASDIRECTED PRN PRN Reason: Hypoglycemia Heparin Sodium (Porcine) (Heparin Sodium 5,000 Units/Ml Vial) 5,000 units S UBCUT Q8H [facility] Last Admin: 01/31/21 08:12 Dose: 5,000 units Documented by: Sodium Chloride (Normal Saline) 1,000 mls @ 1,000 mls/hr IV ASDIRECTED [facility] Stop: 02/01/21 15:44 Last Admin: 01/31/21 15:14 Dose: 1,000 mls/hr Documented by: Insulin Human Lispro (Insulin Lispro 100 Units/Ml 3 Ml Vial) 0 unit SUBCUT DAILY@0800,1700 [facility]; Protocol Last Admin: 01/31/21 08:14 Dose: Not Given Documented by: Magnesium Chloride (Magnesium Chloride 64 Mg Tab.Er) 64 mg PO DAILY [facility] Last Admin: 01/31/21 08:13 Dose: 64 mg Documented by: Metoprolol Succinate (Metoprolol Succinate 100 Mg Tab.Er) 100 mg PO DAILY [facility] Last Admin: 01/31/21 08:13 Dose: 100 mg Documented by: Nicotine (Nicotine 21 Mg/24 Hr Patch) 21 mg TRDERM DAILY [facility] Last Admin: 01/31/21 08:12 Dose: 21 mg Documented by: Creon 6000 Unit Cap (Ptom) 0 each PO TIDMEALS [facility] Last Admin: 01/31/21 11:56 Dose: 1 each Documented by: Oxycodone HCl (Oxycodone 5 Mg Tab) 5 - 10 mg PO Q4H PRN PRN Reason: Pain Last Admin: 01/31/21 08:13 Dose: 5 mg Documented by: Pantoprazole Sodium (Pantoprazole 40 Mg Tab.Cr) 40 mg PO ACBREAKFAST [facility] Last Admin: 01/31/21 06:50 Dose: 40 mg Documented by: Potassium Chloride (Potassium Chloride 10 Meq Tab.Er) 20 meq PO BIDMEALS [facility] Last Admin: 01/31/21 08:13 Dose: 20 meq Documented by: Prochlorperazine Maleate (Prochlorperazine 10 Mg Tab) 10 mg PO Q6H PRN PRN Reason: Nausea Last Admin: 01/31/21 08:13 Dose: 10 mg Documented by: Tamsulosin HCl (Tamsulosin 0.4 Mg Cap.Er) 0.4 mg PO BEDTIME [facility] Last Admin: 01/30/21 19:35 Dose: 0.4 mg Documented by: Tramadol HCl (Tramadol 50 Mg Tab) 50 mg PO Q6H PRN PRN Reason: Pain Zolpidem Tartrate (Zolpidem 5 Mg Tab) 5 mg PO BEDTIME PRN PRN Reason: Sleep Discontinued Medications Albuterol (Albuterol 0.083% 2.5 Mg/3 Ml Neb Soln) 2.5 mg NEB ONETIME ONE Stop: 01/31/21 14:42 Last Admin: 01/31/21 15:05 Dose: 2.5 mg Documented by: Amoxicillin/Clavulanate Potassium (Amoxicillin/Clavulanate K 875-125 Mg Tab) 1 tab PO BIDMEALS [facility] Stop: 01/14/21 18:30 Last Admin: 01/14/21 17:03 Dose: 1 tab Documented by: Calcium Gluconate (Calcium Gluconate 10% 1 Gm/10 Ml Sdv) 1 gm IVPUSH ONETIME ONE Stop: 01/31/21 14:42 Last Admin: 01/31/21 15:05 Dose: 1 gm Documented by: Dextrose/Water (50% Dextrose In Water 50 Ml Syringe) 50 ml IVPUSH ONETIME ONE Stop: 01/31/21 14:42 Last Admin: 01/31/21 15:06 Dose: 50 ml Documented by: Dextrose/Water (50% Dextrose In Water 50 Ml Syringe) 50 ml IVPUSH ASDIRECTED PRN PRN Reason: Hypoglycemia Fluconazole (Fluconazole 100 Mg Tab) 200 mg PO BEDTIME ERICA Stop: 01/28/21 21:00 Last Admin: 01/28/21 19:49 Dose: 200 mg Documented by: Furosemide (Furosemide 40 Mg/4 Ml Vial) 40 mg IVPUSH Q24H [facility] Last Admin: 01/08/21 12:01 Dose: 40 mg Documented by: Glucagon (Glucagon,Human Recombinant 1 Mg Vial) 1 mg IM ASDIRECTED PRN PRN Reason: Hypoglycemia Magnesium Sulfate 2 gm/ Premix 50 mls @ 25 mls/hr IV ONETIME ONE Stop: 01/05/21 18:58 Last Admin: 01/05/21 17:27 Dose: 25 mls/hr Documented by: Magnesium Sulfate 2 gm/ Premix 50 mls @ 25 mls/hr IV ONETIME ONE Stop: 01/19/21 16:59 Last Admin: 01/19/21 15:00 Dose: 25 mls/hr Documented by: Sodium Chloride (Normal Saline) Confirm Administered Dose 50 mls @ as directed .ROUTE .STK-MED ONE Stop: 01/31/21 15:26 Last Admin: 01/31/21 15:06 Dose: Not Given Documented by: Insulin Human Lispro (Insulin Lispro 100 Units/Ml 3 Ml Vial) 0 unit SUBCUT TIDMEALS [facility]; Protocol Last Admin: 01/02/21 08:28 Dose: Not Given Documented by: Insulin Human Lispro (Insulin Lispro 100 Units/Ml 3 Ml Vial) 0 unit SUBCUT TIDMEALS [facility]; Protocol Last Admin: 01/05/21 08:14 Dose: Not Given Documented by: Insulin Human Regular (Insulin Regular, Human 100 Units/Ml 3 Ml Vial) 10 unit IV ONETIME ONE Stop: 01/31/21 14:42 Last Admin: 01/31/21 15:05 Dose: 10 units Documented by: Dronabinol 5 Mg Cap 0 mg PO BIDAC ERICA Last Admin: 01/02/21 08:14 Dose: 5 mg Documented by: Non-Formulary Medication (Insulin Aspart [Novolog]) 2 - 12 unit SQ TIDMEALS [facility] - Exam General: Reports: Alert HEENT: Reports: Pupils Equal, Pupils Reactive Neck: Reports: Supple Lungs: Reports: Clear to Auscultation, Normal Respiratory Effort Cardiovascular: Reports: Tachycardia GI/Abdominal Exam: Normal Bowel Sounds, Soft, Other (midline incsion with minimal granuloma tissue and drainage. culture obtained) Back Exam: Reports: Normal Inspection Extremities: Normal Inspection, Normal Range of Motion, No Pedal Edema Neurological: Reports: No New Focal Deficit
[2021-01-31] MEDS ORDERED: Ampicillin/Sulbactam Na 3 GM in Sodium Chloride 0.9% 100 ML IV ONE (15:52)
== END 2021-01-31 17:01 | DRG 861 ==
LOC: UNDOADMIN 13:31 → CC.MS 13:31
PROVIDERS: ADMIT Family Medicine; ATTEND Family Medicine
DX: R53.81 Other malaise (principal); K65.1 Peritoneal abscess; A41.9 Sepsis, unspecified organism; E87.5 Hyperkalemia; D64.9 Anemia, unspecified; I12.9 Hypertensive chronic kidney disease with stage 1 through stage 4 chronic kidney disease, or unspecified chronic kidney disease; N18.9 Chronic kidney disease, unspecified; D63.1 Anemia in chronic kidney disease; C25.9 Malignant neoplasm of pancreas, unspecified; R18.8 Other ascites; T81.49XA Infection following a procedure, other surgical site, initial encounter; Z90.410 Acquired total absence of pancreas; Z88.8 Allergy status to other drugs, medicaments and biological substances; Z79.899 Other long term (current) drug therapy; Z79.4 Long term (current) use of insulin; Z90.49 Acquired absence of other specified parts of digestive tract
CPT/HCPCS: 36415; 71046; 74176; 80048; 80053; 81001; 82270; 82607; 82728; 82746; 82947; 83540; 83550; 83605; 83690; 83735; 85014; 85018; 85025; 86140; 86850; 86900; 86901; 86920; 86922; 87040; 87070; 87077; 87086; 87186; 97110-GP; 97161-GP; 97530-GP; A9270-GY; J0295; J0610; J1644; J1815-GY; J1940; J3475; J7030; J7613-GY; Q0164; Q0167; U0002

== ENCOUNTER 2021-04-14 11:05 | Inpatient (IN) | payer BC, MEDICAID ==
[2021-04-14] MEDS ORDERED: Albuterol/Ipratropium 3.0-0.5 MG/3 ML Neb Soln INH PRN (17:05)
[2021-04-14] MEDS ORDERED: Acetaminophen 325 MG Tab PO PRN (17:05)
[2021-04-14] MEDS ORDERED: Calcium Carbonate 500 MG Tab.Chew PO PRN (17:05)
[2021-04-14] MEDS: Prochlorperazine 10 MG Tab PO SCH (19:18)
[2021-04-14] MEDS: Melatonin 3 MG Tab PO SCH (19:18)
[2021-04-14] MEDS: Ferrous Sulfate 324 MG Tab.EC PO SCH (19:18)
[2021-04-14] MEDS ORDERED: Magnesium Citrate Solution 296 ML Bottle PO ONE (20:47)
[2021-04-14] MEDS: oxyCODONE 5 MG Tab PO PRN (21:08)
[2021-04-15] MEDS: Ferrous Sulfate 324 MG Tab.EC PO SCH ×2 (07:47→18:39)
[2021-04-15] MEDS: Cholecalciferol (Vitamin D3) 25 MCG Tab PO SCH (07:47)
[2021-04-15] MEDS: Metoprolol Succinate 100 MG Tab.ER PO SCH (07:47)
[2021-04-15] MEDS: Nicotine 21 MG/24 Hr Patch TRDERM SCH (07:48)
[2021-04-15] MEDS ORDERED: Furosemide 20 MG Tab PO SCH (08:00)
[2021-04-15] MEDS: PROTEASE PO SCH ×2 (09:54→11:59)
[2021-04-15] MEDS: AMYLASE PO SCH ×2 (09:54→11:59)
[2021-04-15] MEDS: LIPASE PO SCH ×2 (09:54→11:59)
[2021-04-15] MEDS: Amylase/Lipase/Protease 6,000 Unit Cap.CR PO SCH (17:27)
[2021-04-15] MEDS: Furosemide 20 MG Tab PO SCH (17:27)
[2021-04-15] MEDS: Prochlorperazine 10 MG Tab PO SCH (19:23)
[2021-04-15] MEDS: Melatonin 3 MG Tab PO SCH (19:23)
[2021-04-16] MEDS: Furosemide 20 MG Tab PO SCH (07:42)
[2021-04-16] MEDS: Nicotine 21 MG/24 Hr Patch TRDERM SCH (07:42)
[2021-04-16] MEDS: Cholecalciferol (Vitamin D3) 25 MCG Tab PO SCH (07:42)
[2021-04-16] MEDS: Ferrous Sulfate 324 MG Tab.EC PO SCH ×2 (07:43→17:11)
[2021-04-16] MEDS: Amylase/Lipase/Protease 6,000 Unit Cap.CR PO SCH ×3 (07:43→17:11)
[2021-04-16] MEDS: Metoprolol Succinate 100 MG Tab.ER PO SCH (08:09)
[2021-04-16] MEDS: oxyCODONE 5 MG Tab PO PRN ×2 (11:22→20:06)
[2021-04-16] MEDS: Prochlorperazine 10 MG Tab PO SCH (20:06)
[2021-04-16] MEDS: Melatonin 3 MG Tab PO SCH (20:06)
[2021-04-17] MEDS: oxyCODONE 5 MG Tab PO PRN ×3 (03:09→18:37)
[2021-04-17] MEDS: Ferrous Sulfate 324 MG Tab.EC PO SCH ×2 (07:36→17:23)
[2021-04-17] MEDS: Nicotine 21 MG/24 Hr Patch TRDERM SCH (07:36)
[2021-04-17] MEDS: Furosemide 20 MG Tab PO SCH (07:36)
[2021-04-17] MEDS: Metoprolol Succinate 100 MG Tab.ER PO SCH (07:36)
[2021-04-17] MEDS: Cholecalciferol (Vitamin D3) 25 MCG Tab PO SCH (07:36)
[2021-04-17] MEDS: Amylase/Lipase/Protease 6,000 Unit Cap.CR PO SCH ×3 (07:36→17:23)
[2021-04-17] MEDS ORDERED: Potassium Chloride 10 MEQ Tab.ER PO ONE (08:45)
[2021-04-17] MEDS ORDERED: Albumin 25% 12.5 GM/50 ML Bag IV ONE (13:48)
[2021-04-17] MEDS: Spironolactone 25 MG Tab PO SCH (16:10)
[2021-04-17] MEDS: Polyethylene Glycol 3350 Powder 17 GM Packet PO SCH (16:10)
[2021-04-17] MEDS: Melatonin 3 MG Tab PO SCH (19:35)
[2021-04-17] MEDS: Prochlorperazine 10 MG Tab PO SCH (19:35)
[2021-04-18] MEDS: oxyCODONE 5 MG Tab PO PRN ×4 (02:02→23:43)
[2021-04-18] MEDS: Cholecalciferol (Vitamin D3) 25 MCG Tab PO SCH (07:55)
[2021-04-18] MEDS: Ferrous Sulfate 324 MG Tab.EC PO SCH ×2 (07:56→17:03)
[2021-04-18] MEDS: Furosemide 20 MG Tab PO SCH (07:56)
[2021-04-18] MEDS: Amylase/Lipase/Protease 6,000 Unit Cap.CR PO SCH ×3 (07:56→17:04)
[2021-04-18] MEDS: Spironolactone 25 MG Tab PO SCH (07:56)
[2021-04-18] MEDS: Nicotine 21 MG/24 Hr Patch TRDERM SCH (07:56)
[2021-04-18] MEDS: Metoprolol Succinate 100 MG Tab.ER PO SCH (07:56)
[2021-04-18] MEDS: Polyethylene Glycol 3350 Powder 17 GM Packet PO SCH (07:57)
[2021-04-18] MEDS ORDERED: Potassium Chloride 10 MEQ Tab.ER PO SCH (08:00)
[2021-04-18] MEDS: Prochlorperazine 10 MG Tab PO SCH (19:51)
[2021-04-18] MEDS: Melatonin 3 MG Tab PO SCH (19:51)
[2021-04-18] MEDS ORDERED: Morphine 2 MG/ML SYRINGE IVPUSH ONE (19:54)
[2021-04-19] MEDS ORDERED: Simethicone 80 MG Tab.Chew PO ONE (00:26)
[2021-04-19] MEDS ORDERED: GI Cocktail Oral Solution 30 ML PO ONE (00:27)
[2021-04-19] MEDS ORDERED: Alum Hydrox/Mag Hydrox/Simeth 30 ML, Lidocaine 2% 15 ML PO ONE ×2 (00:34)
[2021-04-19] MEDS: Nicotine 21 MG/24 Hr Patch TRDERM SCH (07:42)
[2021-04-19] MEDS: Metoprolol Succinate 100 MG Tab.ER PO SCH (07:43)
[2021-04-19] MEDS: Polyethylene Glycol 3350 Powder 17 GM Packet PO SCH (07:43)
[2021-04-19] MEDS: Furosemide 20 MG Tab PO SCH (07:43)
[2021-04-19] MEDS: Spironolactone 25 MG Tab PO SCH (07:43)
[2021-04-19] MEDS: Ferrous Sulfate 324 MG Tab.EC PO SCH ×2 (07:43→17:31)
[2021-04-19] MEDS: Cholecalciferol (Vitamin D3) 25 MCG Tab PO SCH (07:43)
[2021-04-19] MEDS: Amylase/Lipase/Protease 6,000 Unit Cap.CR PO SCH ×3 (07:43→17:31)
[2021-04-19] MEDS: oxyCODONE 5 MG Tab PO PRN (07:51)
[2021-04-19] MEDS: Melatonin 3 MG Tab PO SCH (19:44)
[2021-04-19] MEDS: Prochlorperazine 10 MG Tab PO SCH (19:44)
[2021-04-19] MEDS: Simethicone 80 MG Tab.Chew PO PRN (19:44)
[2021-04-19] MEDS: Melatonin 3 MG Tab PO PRN (22:20)
[2021-04-20] MEDS: Cholecalciferol (Vitamin D3) 25 MCG Tab PO SCH (08:10)
[2021-04-20] MEDS: Polyethylene Glycol 3350 Powder 17 GM Packet PO SCH (08:11)
[2021-04-20] MEDS: Amylase/Lipase/Protease 6,000 Unit Cap.CR PO SCH ×3 (08:11→17:04)
[2021-04-20] MEDS: Furosemide 20 MG Tab PO SCH (08:11)
[2021-04-20] MEDS: Metoprolol Succinate 100 MG Tab.ER PO SCH (08:11)
[2021-04-20] MEDS: Spironolactone 25 MG Tab PO SCH (08:11)
[2021-04-20] MEDS: Nicotine 21 MG/24 Hr Patch TRDERM SCH (08:11)
[2021-04-20] MEDS: Ferrous Sulfate 324 MG Tab.EC PO SCH ×2 (08:11→17:04)
[2021-04-20] MEDS: Simethicone 80 MG Tab.Chew PO PRN (13:04)
[2021-04-20] MEDS: oxyCODONE 5 MG Tab PO PRN (15:35)
[2021-04-20] MEDS: Melatonin 3 MG Tab PO SCH (20:08)
[2021-04-20] MEDS: Prochlorperazine 10 MG Tab PO SCH (20:08)
[2021-04-21] MEDS: Ferrous Sulfate 324 MG Tab.EC PO SCH ×2 (07:32→17:20)
[2021-04-21] MEDS: Metoprolol Succinate 100 MG Tab.ER PO SCH (07:32)
[2021-04-21] MEDS: Spironolactone 25 MG Tab PO SCH (07:32)
[2021-04-21] MEDS: Cholecalciferol (Vitamin D3) 25 MCG Tab PO SCH (07:32)
[2021-04-21] MEDS: Nicotine 21 MG/24 Hr Patch TRDERM SCH (07:32)
[2021-04-21] MEDS: Furosemide 20 MG Tab PO SCH (07:33)
[2021-04-21] MEDS: Amylase/Lipase/Protease 6,000 Unit Cap.CR PO SCH ×3 (07:33→17:20)
[2021-04-21] MEDS: Polyethylene Glycol 3350 Powder 17 GM Packet PO SCH (07:33)
[2021-04-21] MEDS: oxyCODONE 5 MG Tab PO PRN (09:44)
[2021-04-21] MEDS: Melatonin 3 MG Tab PO SCH (19:43)
[2021-04-21] MEDS: Prochlorperazine 10 MG Tab PO SCH (19:43)
[2021-04-22] MEDS: Ferrous Sulfate 324 MG Tab.EC PO SCH ×2 (07:30→17:10)
[2021-04-22] MEDS: Spironolactone 25 MG Tab PO SCH (07:30)
[2021-04-22] MEDS: Amylase/Lipase/Protease 6,000 Unit Cap.CR PO SCH ×3 (07:30→17:10)
[2021-04-22] MEDS: Nicotine 21 MG/24 Hr Patch TRDERM SCH (07:31)
[2021-04-22] MEDS: Metoprolol Succinate 100 MG Tab.ER PO SCH (07:32)
[2021-04-22] MEDS: Polyethylene Glycol 3350 Powder 17 GM Packet PO SCH (07:32)
[2021-04-22] MEDS: Furosemide 20 MG Tab PO SCH (07:32)
[2021-04-22] MEDS: Cholecalciferol (Vitamin D3) 25 MCG Tab PO SCH (07:33)
[2021-04-22] MEDS: oxyCODONE 5 MG Tab PO PRN (10:12)
[2021-04-22] MEDS: Prochlorperazine 10 MG Tab PO SCH (20:02)
[2021-04-22] MEDS: Melatonin 3 MG Tab PO SCH (20:02)
[2021-04-23] MEDS: Amylase/Lipase/Protease 6,000 Unit Cap.CR PO SCH ×3 (07:48→18:35)
[2021-04-23] MEDS: Metoprolol Succinate 100 MG Tab.ER PO SCH (07:48)
[2021-04-23] MEDS: Cholecalciferol (Vitamin D3) 25 MCG Tab PO SCH (07:48)
[2021-04-23] MEDS: Spironolactone 25 MG Tab PO SCH (07:48)
[2021-04-23] MEDS: Furosemide 20 MG Tab PO SCH (07:48)
[2021-04-23] MEDS: Polyethylene Glycol 3350 Powder 17 GM Packet PO SCH (07:48)
[2021-04-23] MEDS: Ferrous Sulfate 324 MG Tab.EC PO SCH ×2 (07:48→18:35)
[2021-04-23] MEDS: Nicotine 21 MG/24 Hr Patch TRDERM SCH (07:49)
[2021-04-23] MEDS: Prochlorperazine 10 MG Tab PO SCH (19:34)
[2021-04-23] MEDS: Melatonin 3 MG Tab PO SCH (19:34)
[2021-04-24] MEDS: oxyCODONE 5 MG Tab PO PRN (04:12)
[2021-04-24] MEDS: Amylase/Lipase/Protease 6,000 Unit Cap.CR PO SCH ×3 (07:46→17:46)
[2021-04-24] MEDS: Spironolactone 25 MG Tab PO SCH (07:46)
[2021-04-24] MEDS: Cholecalciferol (Vitamin D3) 25 MCG Tab PO SCH (07:46)
[2021-04-24] MEDS: Ferrous Sulfate 324 MG Tab.EC PO SCH ×2 (07:47→17:46)
[2021-04-24] MEDS: Furosemide 20 MG Tab PO SCH (07:47)
[2021-04-24] MEDS: Metoprolol Succinate 100 MG Tab.ER PO SCH (07:47)
[2021-04-24] MEDS: Polyethylene Glycol 3350 Powder 17 GM Packet PO SCH (07:51)
[2021-04-24] MEDS: Nicotine 21 MG/24 Hr Patch TRDERM SCH (07:51)
[2021-04-24] MEDS: Melatonin 3 MG Tab PO SCH (19:52)
[2021-04-24] MEDS: Melatonin 3 MG Tab PO PRN (19:53)
[2021-04-24] MEDS: Prochlorperazine 10 MG Tab PO SCH (19:53)
[2021-04-25] MEDS: oxyCODONE 5 MG Tab PO PRN (04:16)
[2021-04-25] MEDS: Nicotine 21 MG/24 Hr Patch TRDERM SCH (07:41)
[2021-04-25] MEDS: Cholecalciferol (Vitamin D3) 25 MCG Tab PO SCH (07:42)
[2021-04-25] MEDS: Spironolactone 25 MG Tab PO SCH (07:42)
[2021-04-25] MEDS: Metoprolol Succinate 100 MG Tab.ER PO SCH (07:43)
[2021-04-25] MEDS: Amylase/Lipase/Protease 6,000 Unit Cap.CR PO SCH ×3 (07:43→17:17)
[2021-04-25] MEDS: Polyethylene Glycol 3350 Powder 17 GM Packet PO SCH (07:43)
[2021-04-25] MEDS: Ferrous Sulfate 324 MG Tab.EC PO SCH ×2 (07:43→17:17)
[2021-04-25] MEDS: Furosemide 20 MG Tab PO SCH (07:44)
[2021-04-25] MEDS: Melatonin 3 MG Tab PO SCH (19:44)
[2021-04-25] MEDS: Melatonin 3 MG Tab PO PRN (19:44)
[2021-04-25] MEDS: Prochlorperazine 10 MG Tab PO SCH (19:44)
[2021-04-26] MEDS: Metoprolol Succinate 100 MG Tab.ER PO SCH (07:52)
[2021-04-26] MEDS: Furosemide 20 MG Tab PO SCH (07:52)
[2021-04-26] MEDS: Amylase/Lipase/Protease 6,000 Unit Cap.CR PO SCH ×3 (07:52→17:20)
[2021-04-26] MEDS: Spironolactone 25 MG Tab PO SCH (07:52)
[2021-04-26] MEDS: Cholecalciferol (Vitamin D3) 25 MCG Tab PO SCH (07:53)
[2021-04-26] MEDS: Ferrous Sulfate 324 MG Tab.EC PO SCH ×2 (07:53→17:20)
[2021-04-26] MEDS: Nicotine 21 MG/24 Hr Patch TRDERM SCH (07:54)
[2021-04-26] MEDS: Polyethylene Glycol 3350 Powder 17 GM Packet PO SCH (07:54)
[2021-04-26] MEDS: Simethicone 80 MG Tab.Chew PO PRN (09:52)
[2021-04-26] MEDS: oxyCODONE 5 MG Tab PO PRN (15:03)
[2021-04-26] MEDS: Prochlorperazine 10 MG Tab PO SCH (19:39)
[2021-04-26] MEDS: Melatonin 3 MG Tab PO PRN (19:40)
[2021-04-26] MEDS: Melatonin 3 MG Tab PO SCH (19:40)
[2021-04-27] MEDS: Ferrous Sulfate 324 MG Tab.EC PO SCH ×2 (07:21→17:20)
[2021-04-27] MEDS: Metoprolol Succinate 100 MG Tab.ER PO SCH (07:21)
[2021-04-27] MEDS: Amylase/Lipase/Protease 6,000 Unit Cap.CR PO SCH ×3 (07:21→17:21)
[2021-04-27] MEDS: Nicotine 21 MG/24 Hr Patch TRDERM SCH (07:23)
[2021-04-27] MEDS: Cholecalciferol (Vitamin D3) 25 MCG Tab PO SCH (07:23)
[2021-04-27] MEDS: Polyethylene Glycol 3350 Powder 17 GM Packet PO SCH (07:23)
[2021-04-27] MEDS: Furosemide 20 MG Tab PO SCH (07:23)
[2021-04-27] MEDS: Spironolactone 25 MG Tab PO SCH (07:23)
[2021-04-27] MEDS: Prochlorperazine 10 MG Tab PO SCH (19:39)
[2021-04-27] MEDS: Melatonin 3 MG Tab PO PRN (19:39)
[2021-04-27] MEDS: Melatonin 3 MG Tab PO SCH (19:39)
[2021-04-27] MEDS: oxyCODONE 5 MG Tab PO PRN (20:32)
[2021-04-28] MEDS: Spironolactone 25 MG Tab PO SCH (08:13)
[2021-04-28] MEDS: Amylase/Lipase/Protease 6,000 Unit Cap.CR PO SCH ×2 (08:13→11:26)
[2021-04-28] MEDS: Metoprolol Succinate 100 MG Tab.ER PO SCH (08:13)
[2021-04-28] MEDS: Ferrous Sulfate 324 MG Tab.EC PO SCH (08:13)
[2021-04-28] MEDS: Furosemide 20 MG Tab PO SCH (08:13)
[2021-04-28] MEDS: Cholecalciferol (Vitamin D3) 25 MCG Tab PO SCH (08:14)
[2021-04-28] MEDS: Polyethylene Glycol 3350 Powder 17 GM Packet PO SCH (08:14)
[2021-04-28] MEDS: Nicotine 21 MG/24 Hr Patch TRDERM SCH (08:14)
== END 2021-04-28 14:45 | disposition home health service (06) | DRG 861 ==
LOC: UNDOADMIN 16:20 → CC.MS 16:20
PROVIDERS: ADMIT Nurse Practitioner Family; ATTEND Family Medicine
DX: R53.81 Other malaise (principal); C25.9 Malignant neoplasm of pancreas, unspecified; Q61.19 Other polycystic kidney, infantile type; Z20.822 Contact with and (suspected) exposure to COVID-19; L02.211 Cutaneous abscess of abdominal wall; H54.7 Unspecified visual loss; J44.9 Chronic obstructive pulmonary disease, unspecified; I12.9 Hypertensive chronic kidney disease with stage 1 through stage 4 chronic kidney disease, or unspecified chronic kidney disease; N18.30 Chronic kidney disease, stage 3 unspecified; Z85.07 Personal history of malignant neoplasm of pancreas; Z90.49 Acquired absence of other specified parts of digestive tract; Z88.8 Allergy status to other drugs, medicaments and biological substances; Z79.899 Other long term (current) drug therapy; Z90.410 Acquired total absence of pancreas; Z86.14 Personal history of Methicillin resistant Staphylococcus aureus infection; Z98.890 Other specified postprocedural states
CPT/HCPCS: 36415; 71046; 80053; 85025; 97110-GP; 97161-GP; 97530-GP; A9270-GY; J2270; P9047; Q0164; U0002

== ENCOUNTER 2022-01-02 22:01 | Emergency (ER) | payer MEDICAID ==
[2022-01-02] MEDS ORDERED: Sodium Chloride 0.9% 10 ML Syringe FLUSH PRN (22:29)
[2022-01-02] MEDS ORDERED: Sodium Chloride 0.9% 1,000 ML IV ONE ×2 (22:29→23:18)
[2022-01-02 23:04] LABS: CHLORIDE,CL 81 mEq/L (98-106)
[2022-01-02 23:22] LABS: ESTIMATED GFR 11 mL/min (>=60); SODIUM,NA 122 mEq/L (136-145)
[2022-01-02 23:32] LABS: AMPHETAMINES,URINE NEGATIVE (NEGATIVE); BARBITURATES,URINE NEGATIVE (NEGATIVE); BENZODIAZEPINE,URINE NEGATIVE (NEGATIVE); MDMA (ECSTASY), URINE NEGATIVE (NEGATIVE); METHADONE,URINE NEGATIVE (NEGATIVE); METHAMPHETAMINES,URINE NEGATIVE (NEGATIVE); OPIATES,URINE POSITIVE (NEGATIVE); OXYCODONE,URINE NEGATIVE (NEGATIVE); PHENCYCLIDINE,URINE NEGATIVE (NEGATIVE); TCA,URINE NEGATIVE (NEGATIVE)
[2022-01-02] MEDS ORDERED: Insulin Regular, Human 100 Units/ML 3 ML Vial IV ONE (23:35)
[2022-01-02] MEDS ORDERED: Insulin Regular in 0.9 % NACL 100 ML IV SCH (23:45)
[2022-01-03] MEDS ORDERED: Sodium Chloride 0.9% 1,000 ML ONE (00:08)
== END 2022-01-03 00:38 ==
LOC: CC.ED 22:01
DX: R41.0 Disorientation, unspecified (principal); E87.5 Hyperkalemia; E87.1 Hypo-osmolality and hyponatremia; I12.9 Hypertensive chronic kidney disease with stage 1 through stage 4 chronic kidney disease, or unspecified chronic kidney disease; N18.4 Chronic kidney disease, stage 4 (severe); R73.9 Hyperglycemia, unspecified; I49.8 Other specified cardiac arrhythmias; J44.9 Chronic obstructive pulmonary disease, unspecified; Z85.07 Personal history of malignant neoplasm of pancreas; Z88.8 Allergy status to other drugs, medicaments and biological substances; Z91.030 Bee allergy status; Z79.899 Other long term (current) drug therapy
CPT/HCPCS: 36415; 51702; 71045; 80053; 80305-QW; 80307; 81001; 82550; 82803; 82947; 83605; 83690; 85025; 86140; 87040; 87804; 93005; 93010; 96360; 96361; 99284; 99285-25; J1815-GY; J7030; U0002